=== PATIENT | female | born 1935 | race Caucasian/White ===

== ENCOUNTER 2016-06-18 10:03 | Outpatient (CLI) | payer MEDICARE, OTHER | END 2016-06-18 10:04 | disposition home or self-care (01) | DX: E78.5 Hyperlipidemia, unspecified (principal); E03.9 Hypothyroidism, unspecified; Z51.81 Encounter for therapeutic drug level monitoring; E11.65 Type 2 diabetes mellitus with hyperglycemia ==

== ENCOUNTER 2016-10-06 10:29 | Outpatient (CLI) | payer MEDICARE, OTHER | END 2016-10-06 10:30 | disposition home or self-care (01) | DX: Z12.31 Encounter for screening mammogram for malignant neoplasm of breast (principal) ==

== ENCOUNTER 2016-11-04 11:31 | Outpatient (CLI) | payer MEDICARE, OTHER ==
[2016-11-04 18:56] LABS: BASOPHILS # (AUTO) 0.1 10^3/uL (0.0-0.1); BASOPHILS % (AUTO) 0.9 %; EOSINOPHILS # (AUTO) 0.4 10^3/uL (0.0-0.7); EOSINOPHILS % (AUTO) 7.1 %; HCT - HEMATOCRIT 36.2 % (37.0-47.0); HGB - HEMOGLOBIN 12.3 g/dL (12.0-16.0); LYMPHOCYTES # (AUTO) 1.5 10^3/uL (1.5-3.5); LYMPHOCYTES % (AUTO) 23.5 %; MEAN CORPUSCULAR HEMOGLOBIN 29.1 pg (27.0-31.0); MEAN CORPUSCULAR HGB CONC 33.8 g/dL (32.0-36.0); MEAN CORPUSCULAR VOLUME 86.1 fL (81.0-99.0); MEAN PLATELET VOLUME 9.5 fL (7.9-10.8); MONOCYTES # (AUTO) 0.5 10^3/uL (0.0-1.0); MONOCYTES % (AUTO) 7.8 %; NEUTROPHILS # (AUTO) 3.8 10^3/uL (1.5-6.6); NEUTROPHILS % (AUTO) 60.7 %; RED BLOOD COUNT 4.21 10^6/uL (4.20-5.40); RED CELL DISTRIBUTION WIDTH 13.2 % (12.0-15.0); UNCORRECTED WHITE BLOOD COUNT 6.3 x10^3/uL; WHITE BLOOD COUNT 6.3 x10^3/uL (4.8-10.8)
[2016-11-04 19:26] LABS: ALBUMIN/GLOBULIN RATIO 1.2 (1.0-2.2); BILIRUBIN,TOTAL 0.8 mg/dL (0.2-1.0); BUN - BLOOD UREA NITROGEN 31 mg/dL (6-20); CALCIUM 9.9 mg/dL (8.5-10.3); CARBON DIOXIDE - CO2 26 mmol/L (21-32); CHLORIDE 103 mmol/L (101-111); CHOL/HDL RATIO 4.9 (<4.4); CHOLESTEROL 211 mg/dL; CREATININE 1.1 mg/dL (0.4-1.0); GFR - MDRD 48 (>89); GLUCOSE 164 mg/dL (70-100); HDL CHOLESTEROL 43 mg/dL; HEMOGLOBIN A1C 0.8 g/dL; IRON 61 ug/dL (28-170); LDL/HDL RATIO 2.7 (<4.4); POTASSIUM 3.8 mmol/L (3.5-5.0); SODIUM 141 mmol/L (135-145); TOTAL IRON BINDING CAPACITY 434 ug/dL (250-450); TOTAL PROTEIN 7.1 g/dL (6.7-8.2); TRANSFERRIN 310 mg/dL (192-382); TRIGLYCERIDES 263 mg/dL; VLDL CHOLESTEROL 53 mg/dL
[2016-11-04 19:33] LABS: FERRITIN 68.9 ng/mL (11.0-306.8)
[2016-11-04 19:46] LABS: THYROID STIMULATING HORMONE 2.47 uIU/mL (0.34-5.60)
== END 2016-11-04 11:32 | disposition home or self-care (01) ==
LOC: LAB.WCP 11:31
PROVIDERS: ATTEND Physician Assistant Medical
DX: E11.65 Type 2 diabetes mellitus with hyperglycemia (principal); E78.5 Hyperlipidemia, unspecified; D50.9 Iron deficiency anemia, unspecified; Z79.899 Other long term (current) drug therapy
CPT/HCPCS: 36415; 80053; 80061; 82728; 83036; 83540; 84443; 84466; 85025

== ENCOUNTER 2017-01-14 15:41 | Outpatient (CLI) | payer MEDICARE, OTHER ==
--- NOTE | 2017-01-14 17:13 | XRAY Report ---
EXAM: LEFT KNEE RADIOGRAPHY EXAM DATE: 01/14/2017 04:12 PM. CLINICAL HISTORY: OSTEOARTHRITIS, KNEE LEFT. COMPARISON: 02/09/2016. TECHNIQUE: 3 views. FINDINGS: Bones: Normal. No fractures or bone lesions. Joints: Interval mild narrowing medial compartment. No significant osteophytes. No effusion. Soft Tissues: Normal. No soft tissue swelling. IMPRESSION: 1. Interval mild narrowing medial compartment, consistent with mild degenerative joint disease-Kellgr en Brad grade 1. [facility] Referring Provider Line: [phone] SITE ID: [id number]
== END 2017-01-14 15:42 | disposition home or self-care (01) ==
LOC: DI 15:41
PROVIDERS: ATTEND Physician Assistant Medical
DX: M17.12 Unilateral primary osteoarthritis, left knee (principal)

== ENCOUNTER 2017-04-05 11:10 | Outpatient (CLI) | payer MEDICARE, OTHER ==
[2017-04-05 13:02] LABS: ALBUMIN/GLOBULIN RATIO 1.1 (1.0-2.2); BILIRUBIN,TOTAL 0.8 mg/dL (0.2-1.0); CALCIUM 9.8 mg/dL (8.5-10.3); CREATININE 1.1 mg/dL (0.4-1.0); POTASSIUM 3.6 mmol/L (3.5-5.0); TOTAL PROTEIN 7.4 g/dL (6.7-8.2)
[2017-04-05 13:12] LABS: HEMOGLOBIN A1C 0.83 g/dL
== END 2017-04-05 11:11 | disposition home or self-care (01) ==
LOC: LAB.WCP 11:10
PROVIDERS: ATTEND Physician Assistant Medical
DX: E11.65 Type 2 diabetes mellitus with hyperglycemia (principal); Z51.81 Encounter for therapeutic drug level monitoring; Z79.899 Other long term (current) drug therapy
CPT/HCPCS: 36415; 80053; 83036

== ENCOUNTER 2017-07-05 08:00 | Outpatient (CLI) | payer MEDICARE, OTHER ==
[2017-07-05 19:24] LABS: HB2 TOTAL 13.5 g/dL; HEMOGLOBIN A1C 0.87 g/dL
[2017-07-05 19:30] LABS: ALBUMIN 4.1 g/dL (3.2-5.5); ALBUMIN/GLOBULIN RATIO 1.1 (1.0-2.2); ALKALINE PHOSPHATASE 64 IU/L (42-121); ALT ALANINE AMINOTRANSFERASE 17 IU/L (10-60); AST ASPARTATE AMINOTRANSFERASE 22 IU/L (10-42); BUN - BLOOD UREA NITROGEN 42 mg/dL (6-20); CALCIUM 9.6 mg/dL (8.5-10.3); CARBON DIOXIDE - CO2 26 mmol/L (21-32); CHLORIDE 104 mmol/L (101-111); CHOL/HDL RATIO 4.5 (<4.4); CHOLESTEROL 199 mg/dL; CREATININE 1.3 mg/dL (0.4-1.0); GFR - MDRD 39 (>89); GLUCOSE 132 mg/dL (70-100); HDL CHOLESTEROL 44 mg/dL; LDL CHOLESTEROL,CALCULATED 110 mg/dL; LDL/HDL RATIO 2.5 (<4.4); SODIUM 140 mmol/L (135-145); TOTAL PROTEIN 7.7 g/dL (6.7-8.2); VLDL CHOLESTEROL 45 mg/dL
== END 2017-07-05 08:01 | disposition home or self-care (01) ==
LOC: LAB.WCP 08:00
PROVIDERS: ATTEND Physician Assistant Medical
DX: K76.0 Fatty (change of) liver, not elsewhere classified (principal); E11.9 Type 2 diabetes mellitus without complications; E03.9 Hypothyroidism, unspecified; Z51.81 Encounter for therapeutic drug level monitoring; Z79.899 Other long term (current) drug therapy
CPT/HCPCS: 36415; 80053; 80061; 83036; 83721; 84443

== ENCOUNTER 2017-07-06 08:00 | Outpatient (CLI) | payer MEDICARE, OTHER ==
[2017-07-06 19:10] LABS: CALCIUM 9.4 mg/dL (8.5-10.3); CREATININE 1.3 mg/dL (0.4-1.0)
== END 2017-07-06 08:01 | disposition home or self-care (01) ==
LOC: LAB.WCP 08:00
PROVIDERS: ATTEND Physician Assistant Medical
DX: N28.9 Disorder of kidney and ureter, unspecified (principal)
CPT/HCPCS: 36415; 80048

== ENCOUNTER 2017-09-14 18:44 | Emergency (ER) | payer MEDICARE, OTHER ==
--- NOTE | 2017-09-14 19:08 | ED Physician Documentation ---
PD HPI HEAD INJURY - Stated complaint Stated Complaint: GLF - Chief complaint Chief Complaint: Trauma Hd/Nk - History obtained from History obtained from: Patient, Family - History of Present Illness Mechanism of head injury: Other (82-year-old woman who is anticoagulated had a trip and fall on a curb and basically hit her nose and right fourth finger and also landed on her knees but she is not having any knee pain and she is walking fine. 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 : None HEENT: None Psych: None Musculoskeletal: None Derm: None - Past Surgical History General: Appendectomy /MUNICIPAL FIREFIGHTER: section, Hysterectomy - Present Medications Home Medications: Ambulatory Orders Medication Instructions Recorded Confirmed Amlodipine Besylate 5 mg PO BID 02/07/14 02/07/14 Ferrous Sulfate 32 mg PO BID 02/07/14 02/07/14 Furosemide 20 mg PO DAILY 02/07/14 02/07/14 Insulin Glargine,Hum.rec.anlog 24 units 02/07/14 02/07/14 [Lantus] Levothyroxine [Synthroid] 75 mcg PO DAILY 02/07/14 02/07/14 Lisinopril 20 mg PO DAILY 02/07/14 02/07/14 Omeprazole [PriLOSEC] 20 mg PO BID 02/07/14 02/07/14 Potassium 10 meq PO BID 02/07/14 02/07/14 Simvastatin 20 mg PO QPM 02/07/14 02/07/14 Warfarin Sodium [Coumadin] 2 mg PO DAILY 02/07/14 02/07/14 glipiZIDE [Glucotrol] 5 mg PO BID 02/07/14 02/07/14 Carvedilol 25 mg PO BID 09/14/17 Ergocalciferol [Vitamin D2] 50,000 unit PO 09/14/17 - Allergies Allergies/Adverse Reactions: Allergies Allergy/AdvReac Type Severity Reaction Status Date / Time cephalexin monohydrate * Allergy Rash Verified 09/14/17 19:27 [From Keflex] Latex, Natural Rubber Allergy Unknown Verified 09/14/17 19:27 Penicillins Allergy Itching Verified 09/14/17 19:27 Sulfa (Sulfonamide Allergy Rash Verified 09/14/17 19:27 Antibiotics) - Social History Does the pt smoke?: No Smoking Status: Never smoker Does the pt drink ETOH?: No Does the pt have substance abuse?: No - Immunizations Immunizations are current?: Yes Immunizations: TDAP >10years/unknown - POLST Patient has POLST: No PD ED PE NORMAL - Vitals Vital signs reviewed: Yes - General General: Alert and oriented X 3, No acute distress - HEENT HEENT: PERRL, EOMI, Other (Tender and swollen to the nasal bridge without deformity, no epistaxis) - Neck Neck: Supple, no meningeal sign, No bony TTP - Extremities Extremities: Other (The right fourth finger is tender and swollen especially over the mid phalanx, she is a little bruising forming over both knees anteriorly but there is no tenderness or limited range of motion.) - Neuro Neuro: Alert and oriented X 3, Normal speech - Psych Psych: Normal mood, Normal affect Results - Vitals Vitals: Vital Signs - 24 hr 09/14/17 18:53 Temperature 37.1 C Heart Rate 80 Respiratory 15 Rate Blood Pressure 172/89 H O2 Saturation 97 Oxygen O2 Source Room air - Labs Labs: Laboratory Tests 09/14/17 19:14 Whole Blood INR 2.4 H - Rads (name of study) CTH/Face and R hand XR Radiology: EMP read contemporaneously (nasal bone frx, DJD, no ICH) Departure - Departure Disposition: 01 Home, Self Care Clinical Impression: Adequate anticoagulation on anticoagulant therapy Fracture of nasal bone Qualifiers: Encounter type: initial encounter Fracture type: closed Qualified Code(s): S02.2XXA - Fracture of nasal bones, initial encounter for closed fracture Injury of head and neck Qualifiers: Encounter type: initial encounter Qualified Code(s): S09.90XA - Unspecified injury of head, initial encounter; S19.9XXA - Unspecified injury of neck, initial encounter; S19.9XXA - Unspecified injury of neck, initial encounter Finger sprain Qualifiers: Encounter type: initial encounter Finger: ring finger Sprain of finger site: interphalangeal joint Laterality: right Qualified Code(s): S63.634A - Sprain of interphalangeal joint of right ring finger, initial encounter Condition: Good Record reviewed to determine appropriate education?: Yes Instructions: ED Head Injury Closed Sleep Mon, ED Fx Nasal Conf W X Ray Comments: Tylenol as needed for pain. Your INR today is 2.4. Return if worsening or if you develop a headache. Follow-up with your doctor in 1 week.
--- NOTE | 2017-09-14 20:00 | CT Report ---
EXAM: CT HEAD EXAM DATE: 09/14/2017 07:48 PM. CLINICAL HISTORY: Fall, head nasal inj. COMPARISON: None. TECHNIQUE: Multiaxial CT images were obtained from the foramen magnum to the vertex. Reformats: Coron al. IV contrast: None. In accordance with CT protocol optimization, one or more of the following dose reduction techniques w ere utilized for this exam: automated exposure control, adjustment of mA and/or KV based on patient s ize, or use of iterative reconstructive technique. FINDINGS: Parenchyma: No intraparenchymal hemorrhage. No evidence of mass, midline shift, or CT findings of inf arction. Turpin-white differentiation is distinct. Extraaxial Spaces: Normal for age. No subdural or epidural collections identified. Ventricles: Normal in size and position. Sinuses and Orbits: Imaged paranasal sinuses, orbits, and mastoids show no significant abnormality. Bones: No evidence of fracture or calvarial defect. Other: None. IMPRESSION: Negative nonenhanced head CT. [facility] Referring Provider Line: [phone] SITE ID: [id number]
--- NOTE | 2017-09-14 20:05 | CT Preliminary Report ---
Exam: CT FACIAL BONES W/O IMPRESSION: 1. Right nasal bone fracture mildly deviated to the left. 2. No other facial fracture. 3. Sinuses appear clear. [facility] SITE ID: [id number]
--- NOTE | 2017-09-14 20:05 | CT Report ---
EXAM: CT MAXILLOFACIAL WITHOUT CONTRAST EXAM DATE: 09/14/2017 07:48 PM. CLINICAL HISTORY: Fall with facial injury. COMPARISONS: None. TECHNIQUE: Thin-section axial images were acquired of the face without contrast. Post-processing: Cor onal and sagittal reformats. Other: None. In accordance with CT protocol optimization, one or more of the following dose reduction techniques w ere utilized for this exam: automated exposure control, adjustment of mA and/or KV based on patient s ize, or use of iterative reconstructive technique. FINDINGS: Soft Tissue: There is mild soft tissue swelling of the right nose. No discrete hematoma in and stated . Orbits: Symmetric and unremarkable. Bones: There is a right nasal bone fracture of uncertain chronicity, mildly deviated to the left. No other facial bone fracture. Temporomandibular Joints: The patient is edentulous. No mandible fracture or dislocation of the tempo ral mandibular joint. Sinuses: Normal. No mucosal thickening or fluid levels. Other: None. IMPRESSION: 1. Right nasal bone fracture mildly deviated to the left. 2. No other facial fracture. 3. Sinuses appear clear. [facility] Referring Provider Line: [phone] SITE ID: [id number]
--- NOTE | 2017-09-14 20:12 | XRAY Preliminary Report ---
Exam: XR HAND 3 VIEW RT IMPRESSION: No acute fracture or subluxation. Mild degenerative disease of the fourth and fifth DIP j oints. [facility] SITE ID: [id number]
--- NOTE | 2017-09-14 20:12 | XRAY Report ---
EXAM: RIGHT HAND RADIOGRAPHY EXAM DATE: 09/14/2017 07:50 PM. CLINICAL HISTORY: Hand inj. COMPARISON: None. TECHNIQUE: 3 views. FINDINGS: Bones: No acute fracture. Joints: There is mild periarticular cystic change around the fourth and fifth DIP joint. Soft Tissues: No soft tissue foreign body. IMPRESSION: No acute fracture or subluxation. Mild degenerative disease of the fourth and fifth DIP j oints. [facility] Referring Provider Line: [phone] SITE ID: [id number]
[2017-09-14 20:33] VITALS: BP 151/68
== END 2017-09-14 20:34 | disposition home or self-care (01) ==
LOC: ED 18:44
DX: S02.2XXA Fracture of nasal bones, initial encounter for closed fracture (principal); S09.90XA Unspecified injury of head, initial encounter; S19.9XXA Unspecified injury of neck, initial encounter; S63.634A Sprain of interphalangeal joint of right ring finger, initial encounter; W18.09XA Striking against other object with subsequent fall, initial encounter; Y92.480 Sidewalk as the place of occurrence of the external cause; I10 Essential (primary) hypertension; E78.00 Pure hypercholesterolemia, unspecified; E11.9 Type 2 diabetes mellitus without complications; Z79.4 Long term (current) use of insulin
CPT/HCPCS: 70450; 70486; 85610; 99284

== ENCOUNTER 2017-09-30 15:10 | Outpatient (CLI) | payer MEDICARE, OTHER ==
[2017-09-30 19:30] LABS: ALBUMIN 4.1 g/dL (3.2-5.5); ALBUMIN/GLOBULIN RATIO 1.2 (1.0-2.2); ALKALINE PHOSPHATASE 69 IU/L (42-121); ALT ALANINE AMINOTRANSFERASE 19 IU/L (10-60); AST ASPARTATE AMINOTRANSFERASE 23 IU/L (10-42); BUN - BLOOD UREA NITROGEN 36 mg/dL (6-20); CALCIUM 9.8 mg/dL (8.5-10.3); CARBON DIOXIDE - CO2 24 mmol/L (21-32); CHLORIDE 101 mmol/L (101-111); CHOL/HDL RATIO 4.4 (<4.4); CHOLESTEROL 204 mg/dL; CREATININE 1.2 mg/dL (0.4-1.0); GFR - MDRD 43 (>89); GLUCOSE 148 mg/dL (70-100); HDL CHOLESTEROL 46 mg/dL; LDL CHOLESTEROL,CALCULATED 111 mg/dL; LDL/HDL RATIO 2.4 (<4.4); SODIUM 137 mmol/L (135-145); TOTAL PROTEIN 7.5 g/dL (6.7-8.2); VLDL CHOLESTEROL 47 mg/dL
[2017-09-30 19:40] LABS: HB2 TOTAL 13.4 g/dL; HEMOGLOBIN A1C 0.84 g/dL; HEMOGLOBIN A1C % 7.9 % (4.6-6.2)
== END 2017-09-30 15:11 | disposition home or self-care (01) ==
LOC: LAB.WCP 15:10
PROVIDERS: ATTEND Family Medicine
DX: E78.5 Hyperlipidemia, unspecified (principal); E11.65 Type 2 diabetes mellitus with hyperglycemia; E03.9 Hypothyroidism, unspecified; Z51.81 Encounter for therapeutic drug level monitoring; Z79.899 Other long term (current) drug therapy
CPT/HCPCS: 36415; 80053; 80061; 83036; 83721; 84443

== ENCOUNTER 2017-12-07 13:13 | Outpatient (CLI) | payer MEDICARE, OTHER | END 2017-12-07 13:14 | disposition home or self-care (01) | LOC: SC 13:13 | PROVIDERS: ATTEND Nurse Practitioner Family | DX: G47.10 Hypersomnia, unspecified (principal); G47.8 Other sleep disorders; R06.83 Snoring | CPT/HCPCS: 99215; G0463; 99212 ==

== ENCOUNTER 2018-01-05 20:40 | Outpatient (CLI) | payer MEDICARE, OTHER | END 2018-01-05 20:41 | disposition home or self-care (01) | LOC: SC 20:40 | PROVIDERS: ATTEND Internal Medicine Pulmonary Disease | DX: G47.33 Obstructive sleep apnea (adult) (pediatric) (principal); G47.61 Periodic limb movement disorder | CPT/HCPCS: 95810 ==

== ENCOUNTER → 2018-01-09 | Outpatient (CLI) | payer MEDICARE, OTHER ==
[2018-01-09 19:31] LABS: CALCIUM 9.6 mg/dL (8.5-10.3); CREATININE 1.1 mg/dL (0.4-1.0)
[2018-01-09 19:47] LABS: HB2 TOTAL 12.7 g/dL; HEMOGLOBIN A1C 0.95 g/dL
== END ==
LOC: LAB.WCP 08:00
PROVIDERS: ATTEND Family Medicine
DX: G47.33 Obstructive sleep apnea (adult) (pediatric) (principal); E11.65 Type 2 diabetes mellitus with hyperglycemia; I48.0 Paroxysmal atrial fibrillation; I10 Essential (primary) hypertension; E78.5 Hyperlipidemia, unspecified
CPT/HCPCS: 36415; 80048; 83036

== ENCOUNTER 2018-02-13 14:09 | Outpatient (CLI) | payer MEDICARE, OTHER | END 2018-02-13 14:10 | disposition home or self-care (01) | LOC: SC 14:09 | PROVIDERS: ATTEND Nurse Practitioner Family | DX: G47.33 Obstructive sleep apnea (adult) (pediatric) (principal); G47.61 Periodic limb movement disorder | CPT/HCPCS: 99214; G0463; 99212 ==

== ENCOUNTER 2018-03-18 21:00 | Outpatient (CLI) | payer MEDICARE, OTHER | END 2018-03-18 21:01 | disposition home or self-care (01) | LOC: SC 21:00 | PROVIDERS: ATTEND Internal Medicine Pulmonary Disease | DX: G47.33 Obstructive sleep apnea (adult) (pediatric) (principal); G47.61 Periodic limb movement disorder | CPT/HCPCS: 95811 ==

== ENCOUNTER 2018-05-03 12:51 | Outpatient (CLI) | payer MEDICARE, OTHER | END 2018-05-03 12:52 | disposition home or self-care (01) | LOC: SC 12:51 | PROVIDERS: ATTEND Nurse Practitioner Family | DX: G47.33 Obstructive sleep apnea (adult) (pediatric) (principal); G47.61 Periodic limb movement disorder | CPT/HCPCS: 99214; G0463; 99212 ==

== ENCOUNTER 2018-05-09 08:00 | Outpatient (CLI) | payer MEDICARE, OTHER ==
[2018-05-09 19:30] LABS: ALBUMIN 3.8 g/dL (3.2-5.5); ALBUMIN/GLOBULIN RATIO 1.1 (1.0-2.2); ALKALINE PHOSPHATASE 65 IU/L (42-121); ALT ALANINE AMINOTRANSFERASE 15 IU/L (10-60); AST ASPARTATE AMINOTRANSFERASE 22 IU/L (10-42); BILIRUBIN,TOTAL 0.9 mg/dL (0.2-1.0); BUN - BLOOD UREA NITROGEN 28 mg/dL (6-20); CALCIUM 9.2 mg/dL (8.5-10.3); CARBON DIOXIDE - CO2 25 mmol/L (21-32); CHLORIDE 102 mmol/L (101-111); CHOL/HDL RATIO 4.5 (<4.4); CHOLESTEROL 203 mg/dL; GFR - MDRD 53 (>89); GLUCOSE 176 mg/dL (70-100); HDL CHOLESTEROL 45 mg/dL; LDL CHOLESTEROL,CALCULATED 109 mg/dL; LDL/HDL RATIO 2.4 (<4.4); SODIUM 140 mmol/L (135-145); TOTAL PROTEIN 7.2 g/dL (6.7-8.2); VLDL CHOLESTEROL 49 mg/dL
[2018-05-09 19:45] LABS: HB2 TOTAL 12.5 g/dL; HEMOGLOBIN A1C 0.89 g/dL; HEMOGLOBIN A1C % 8.7 % (4.6-6.2)
== END 2018-05-09 23:59 | disposition home or self-care (01) ==
LOC: LAB.WCP 08:00
PROVIDERS: ATTEND Family Medicine
DX: N28.9 Disorder of kidney and ureter, unspecified (principal); E03.9 Hypothyroidism, unspecified; E11.65 Type 2 diabetes mellitus with hyperglycemia; K76.0 Fatty (change of) liver, not elsewhere classified; I10 Essential (primary) hypertension; E78.5 Hyperlipidemia, unspecified
CPT/HCPCS: 36415; 80053; 80061; 83036; 83721; 84443

== ENCOUNTER 2018-05-20 14:47 | Outpatient (CLI) | payer MEDICARE, OTHER ==
--- NOTE | 2018-05-22 12:00 | XRAY Report ---
Reason: Neck Pain Procedure Date: 05/20/2018 Accession Number: [id number] / [id number] Procedure: XR - Cervical Spine 2 View CPT Code: FULL RESULT: EXAM: CERVICAL SPINE RADIOGRAPHY EXAM DATE: 05/20/2018 03:06 PM. CLINICAL HISTORY: Neck Pain. COMPARISONS: None. TECHNIQUE: 3 views. FINDINGS: Alignment: No spondylolisthesis or scoliosis. Bones: The cervical vertebral bodies and posterior elements are well visualized from the skull base through C7-T1. Disks: There is mild disk space narrowing at C5-C6 and C6-C7. There are small to moderate anterior osteophytes. Facets: Mild to moderate degenerative disease. Soft Tissues: No prevertebral soft tissue swelling. The visualized lung apices are clear. IMPRESSION: Mild to moderate cervical spondylosis [facility]
== END 2018-05-20 14:48 | disposition home or self-care (01) ==
LOC: DI 14:47
PROVIDERS: ATTEND Family Medicine
DX: M47.812 Spondylosis without myelopathy or radiculopathy, cervical region (principal); M25.78 Osteophyte, vertebrae
CPT/HCPCS: 72040

== ENCOUNTER 2018-07-17 10:40 | Outpatient (CLI) | payer MEDICARE, OTHER | END 2018-07-17 10:41 | disposition home or self-care (01) | LOC: SC 10:40 | PROVIDERS: ATTEND Nurse Practitioner Family | DX: G47.33 Obstructive sleep apnea (adult) (pediatric) (principal) | CPT/HCPCS: 99214; G0463; 99212 ==

== ENCOUNTER 2018-08-02 08:00 | Outpatient (CLI) | payer MEDICARE, OTHER | END 2018-08-02 23:59 | disposition home or self-care (01) | LOC: LAB.WCP 08:00 | PROVIDERS: ATTEND Family Medicine | DX: I48.0 Paroxysmal atrial fibrillation (principal); Z79.01 Long term (current) use of anticoagulants ==

== ENCOUNTER 2018-08-07 14:27 | Outpatient (CLI) | payer MEDICARE, OTHER ==
[2018-08-07 19:42] LABS: BUN - BLOOD UREA NITROGEN 41 mg/dL (6-20); CALCIUM 9.7 mg/dL (8.5-10.3); CARBON DIOXIDE - CO2 24 mmol/L (21-32); CHLORIDE 100 mmol/L (101-111); CHOL/HDL RATIO 4.3 (<4.4); CHOLESTEROL 188 mg/dL; CREATININE 1.4 mg/dL (0.4-1.0); GFR - MDRD 36 (>89); GLUCOSE 135 mg/dL (70-100); HDL CHOLESTEROL 44 mg/dL; LDL CHOLESTEROL,CALCULATED 99 mg/dL; LDL/HDL RATIO 2.3 (<4.4); SODIUM 136 mmol/L (135-145); VLDL CHOLESTEROL 45 mg/dL
[2018-08-07 19:51] LABS: HB2 TOTAL 12.5 g/dL; HEMOGLOBIN A1C 0.98 g/dL; HEMOGLOBIN A1C % 9.3 % (4.6-6.2)
== END 2018-08-07 14:28 | disposition home or self-care (01) ==
LOC: LAB.WCP 14:27
PROVIDERS: ATTEND Family Medicine
DX: E11.65 Type 2 diabetes mellitus with hyperglycemia (principal); E78.5 Hyperlipidemia, unspecified
CPT/HCPCS: 36415; 80048; 80061; 82043; 83036; 83721

== ENCOUNTER 2018-08-10 10:32 | Outpatient (CLI) | payer MEDICARE, OTHER | END 2018-08-10 10:33 | disposition home or self-care (01) | LOC: SC 10:32 | PROVIDERS: ATTEND Nurse Practitioner Family | DX: G47.33 Obstructive sleep apnea (adult) (pediatric) (principal) | CPT/HCPCS: 99213; G0463; 99212 ==

== ENCOUNTER 2018-09-04 08:00 | Outpatient (CLI) | payer MEDICARE, OTHER | END 2018-09-04 23:59 | disposition home or self-care (01) | LOC: LAB.WCP 08:00 | PROVIDERS: ATTEND Family Medicine | DX: I48.0 Paroxysmal atrial fibrillation (principal); Z79.01 Long term (current) use of anticoagulants ==

== ENCOUNTER 2018-09-21 08:00 | Outpatient (CLI) | payer MEDICARE, OTHER | END 2018-09-21 23:59 | disposition home or self-care (01) | LOC: LAB.R 08:00 | PROVIDERS: ATTEND Physician Assistant | DX: N39.0 Urinary tract infection, site not specified (principal) | CPT/HCPCS: 87077; 87086; 87181 ==

== ENCOUNTER 2018-09-21 08:00 | Outpatient (CLI) | payer MEDICARE, OTHER | END 2018-09-21 08:01 | disposition home or self-care (01) | LOC: LAB.WCP 08:00 | PROVIDERS: ATTEND Physician Assistant | DX: I48.0 Paroxysmal atrial fibrillation (principal); Z79.01 Long term (current) use of anticoagulants; N39.0 Urinary tract infection, site not specified | CPT/HCPCS: 87077; 87086; 87181 ==

== ENCOUNTER 2018-10-12 08:00 | Outpatient (CLI) | payer MEDICARE, OTHER | END 2018-10-12 23:59 | disposition home or self-care (01) | LOC: LAB.WCP 08:00 | PROVIDERS: ATTEND Family Medicine | DX: I48.0 Paroxysmal atrial fibrillation (principal); Z79.01 Long term (current) use of anticoagulants ==

== ENCOUNTER 2018-10-15 21:21 | Emergency (ER) | payer MEDICARE, OTHER ==
[2018-10-15] MEDS ORDERED: MAG HYDROX/AL HYDROX/SIMETH 30 ML UDC PO STA (21:40)
--- NOTE | 2018-10-15 21:44 | ED Physician Documentation ---
History of Present Illness - Stated complaint Stated Complaint: INDIGESTION - Chief complaint Chief Complaint: Abd Pain - History obtained from History obtained from: Patient - Additonal information Additional information: Patient is an 83-year-old female presenting with several days of GERD-like symptoms after taking clindamycin. Patient reports that she was prescribed clindamycin for an ear infection by her primary care physician and has contacted this physician regarding the side effects of the clindamycin. Patient was instructed to eat more food when taking clindamycin. Patient states that she does take medication with food but still has acid reflux-like symptoms and had an episode of vomiting earlier tonight when she took the antibiotic. Patient does take omeprazole regularly for underlying GERD as well. Patient denies other symptoms such as fever, urinary changes, stool changes, or other abdominal pain.No other improving or worsening factors noted. Review of Systems GI: reports: Nausea, Vomiting. 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: section, Hysterectomy - Present Medications Home Medications: Ambulatory Orders Medication Instructions Recorded Confirmed Furosemide 20 mg PO DAILY 02/07/14 10/15/18 Insulin Glargine,Hum.rec.anlog 24 units 02/07/14 02/07/14 [Lantus] Levothyroxine [Synthroid] 75 mcg PO DAILY 02/07/14 10/15/18 Lisinopril 20 mg PO DAILY 02/07/14 10/15/18 Omeprazole [PriLOSEC] 20 mg PO BID 02/07/14 10/15/18 Simvastatin 20 mg PO QPM 02/07/14 10/15/18 Warfarin Sodium [Coumadin] 2 mg PO DAILY 02/07/14 10/15/18 glipiZIDE [Glucotrol] 5 mg PO BID 02/07/14 10/15/18 Carvedilol 25 mg PO BID 09/14/17 10/15/18 - Allergies Allergies/Adverse Reactions: Allergies Allergy/AdvReac Type Severity Reaction Status Date / Time cephalexin monohydrate * Allergy Rash Verified 10/15/18 21:31 [From Keflex] Latex, Natural Rubber Allergy Unknown Verified 10/15/18 21:31 Penicillins Allergy Itching Verified 10/15/18 21:31 Sulfa (Sulfonamide Allergy Rash Verified 10/15/18 21:31 Antibiotics) - Social History Does the pt smoke?: No Smoking Status: Never smoker Does the pt drink ETOH?: No Does the pt have substance abuse?: No - Immunizations Immunizations are current?: Yes Immunizations: TDAP >10years/unknown - POLST Patient has POLST: No PD ED PE NORMAL - Vitals Vital signs reviewed: Yes (HTN, but chronic) - General General: Alert and oriented X 3, No acute distress, Well developed/nourished - HEENT HEENT: Atraumatic - Cardiac Cardiac: RRR. No: No murmur (Holosystolic murmur throughout) - Respiratory Respiratory: No respiratory distress, Clear bilaterally - Abdomen Abdomen: Normal bowel sounds, Soft, Non tender, Non distended - Derm Derm: Normal color, Warm and dry, No rash - Extremities Extremities: No: No edema (Chronic 1+ pitting pedal edema bilaterally) - Neuro Neuro: No motor deficit, No sensory deficit - Psych Psych: Normal mood, Normal affect Results - Vitals Vitals: Vital Signs - 24 hr 10/15/18 21:27 Temperature 37.1 C Heart Rate 89 Respiratory 20 Rate Blood Pressure 161/112 H O2 Saturation 93 Oxygen O2 Source Room air PD MEDICAL DECISION MAKING - ED course Complexity details: re-evaluated patient, considered differential, d/w patient, d/w family ED course: Patient presenting with concern for persistent GERD symptoms when taking clindamycin. Patient states that she does take medication with food which does not help. Patient is unwilling to take clindamycin any further given the side effects and as her ear infection symptoms have stopped. Discussed continued use of clindamycin risks versus benefits and if patient does continue antibiotic, other supportive cares to help relieve acid pain. Patient does take omeprazole regularly and discussed use of other antacid medications as well. Patient provided GI cocktail and Pepcid in the ED with some relief. At this time have low suspicion for other emergent pathology such as cardiac etiologies, pulmonary etiologies, or other intra-abdominal issues. Feel the patient is safe to discharge home and can follow-up with her primary care physician as an outpatient. Patient voiced understanding and is comfortable with discharge plan. Departure - Departure Disposition: 01 Home, Self Care Clinical Impression: Gastroesophageal reflux disease Qualifiers: Esophagitis presence: esophagitis presence not specified Qualified Code(s): K21.9 - Gastro-esophageal reflux disease without esophagitis Condition: Good Instructions: ED GERD Follow-Up: Tuan Moreno MD [Primary Care Provider] - Within 3 Days Comments: Please continue home medications as previously instructed. May also add other o lwp-vjw-tirfoes antacid options such as Pepcid, ranitidine, or Tums. If continuing to take clindamycin, recommend taking with heavy meal. Please follow-up with your primary care physician in the next 2 to 3 days and return to ED sooner if experience worsening symptoms or other concerns.
[2018-10-15] MEDS ORDERED: FAMOTIDINE 20 MG TABLET PO STA (22:14)
[2018-10-15 22:30] VITALS: BP 174/54
== END 2018-10-15 22:31 | disposition home or self-care (01) ==
LOC: ED 21:21
DX: T36.8X5A Adverse effect of other systemic antibiotics, initial encounter (principal); K21.9 Gastro-esophageal reflux disease without esophagitis; R11.2 Nausea with vomiting, unspecified; I10 Essential (primary) hypertension; I48.91 Unspecified atrial fibrillation; Z79.01 Long term (current) use of anticoagulants; E11.9 Type 2 diabetes mellitus without complications; Z79.4 Long term (current) use of insulin
CPT/HCPCS: 99282; 99283; A9270

== ENCOUNTER 2018-10-20 08:00 | Outpatient (CLI) | payer MEDICARE, OTHER ==
[2018-10-20 18:41] LABS: HGB - HEMOGLOBIN 10.9 g/dL (12.0-16.0); MEAN CORPUSCULAR HEMOGLOBIN 28.3 pg (27.0-31.0); MEAN CORPUSCULAR HGB CONC 33.6 g/dL (32.0-36.0); MEAN CORPUSCULAR VOLUME 84.5 fL (81.0-99.0); MEAN PLATELET VOLUME 9.4 fL (7.9-10.8); RED BLOOD COUNT 3.86 10^6/uL (4.20-5.40); RED CELL DISTRIBUTION WIDTH 13.5 % (12.0-15.0); WHITE BLOOD COUNT 7.9 x10^3/uL (4.8-10.8)
[2018-10-20 19:05] LABS: RHEUMATOID FACTOR NEGATIVE (Negative)
[2018-10-20 19:06] LABS: CRP - C-REACTIVE PROTEIN 2.5 mg/dL (0-1.0)
[2018-10-20 19:07] LABS: URIC ACID 10.7 mg/dL (2.6-7.2)
== END 2018-10-20 23:59 | disposition home or self-care (01) ==
LOC: LAB.WCP 08:00
PROVIDERS: ATTEND Family Medicine
DX: M79.671 Pain in right foot (principal)
CPT/HCPCS: 36415; 84550; 85027; 85651; 86140; 86200; 86430

== ENCOUNTER 2018-10-20 11:25 | Outpatient (CLI) | payer MEDICARE, OTHER ==
--- NOTE | 2018-10-20 15:15 | XRAY Report ---
Reason: HEEL PAIN,RIGHT Procedure Date: 10/20/2018 Accession Number: [id number] / [id number] Procedure: WCP - Foot 2 View RT CPT Code: FULL RESULT: EXAM: RIGHT FOOT RADIOGRAPHY EXAM DATE: 10/20/2018 11:38 AM. CLINICAL HISTORY: HEEL PAIN,RIGHT. COMPARISON: None. TECHNIQUE: 2 views. FINDINGS: Bones: Achilles tendon and plantar heel spur. No fractures or bone lesions. Joints: Dorsal spurring talonavicular joint, dorsal metatarsal joint No subluxations. Soft Tissues: Distal peripheral vascular calcifications. Dorsal soft tissue swelling. IMPRESSION: Achilles tendon and plantar heel spurs are [facility]
== END 2018-10-20 11:26 | disposition home or self-care (01) ==
LOC: DI.WCP 11:25
PROVIDERS: ATTEND Family Medicine
DX: M79.671 Pain in right foot (principal); M77.31 Calcaneal spur, right foot
CPT/HCPCS: 36415; 84550; 85027; 85651; 86140; 86200; 86430

== ENCOUNTER 2018-10-23 11:54 | Outpatient (CLI) | payer MEDICARE, OTHER ==
--- NOTE | 2018-10-23 12:39 | XRAY Report ---
Reason: COUGH Procedure Date: 10/23/2018 Accession Number: [id number] / [id number] Procedure: XR - Chest 2 View X-Ray CPT Code: 79820 FULL RESULT: EXAM: CHEST RADIOGRAPHY EXAM DATE: 10/23/2018 12:25 PM. CLINICAL HISTORY: COUGH. COMPARISON: None. TECHNIQUE: 2 views. FINDINGS: Lungs/Pleura: Elongated lingular opacity. Faint left costophrenic angle opacity. Mediastinum: Atherosclerotic aortic calcification. Other: None. IMPRESSION: Lingular atelectasis and potential airspace disease. [facility]
== END 2018-10-23 11:55 | disposition home or self-care (01) ==
LOC: DI 11:54
PROVIDERS: ATTEND Family Medicine
DX: J98.11 Atelectasis (principal); R05 Cough; R03.0 Elevated blood-pressure reading, without diagnosis of hypertension
CPT/HCPCS: 36415; 71046; 80053; 81003; 85025

== ENCOUNTER 2018-10-23 12:53 | Outpatient (CLI) | payer MEDICARE, OTHER ==
[2018-10-23 13:14] LABS: BASOPHILS # (AUTO) 0.1 10^3/uL (0.0-0.1); BASOPHILS % (AUTO) 0.9 %; EOSINOPHILS # (AUTO) 0.2 10^3/uL (0.0-0.7); EOSINOPHILS % (AUTO) 3.7 %; HGB - HEMOGLOBIN 11.4 g/dL (12.0-16.0); LYMPHOCYTES # (AUTO) 0.8 10^3/uL (1.5-3.5); LYMPHOCYTES % (AUTO) 13.4 %; MEAN CORPUSCULAR HEMOGLOBIN 27.6 pg (27.0-31.0); MEAN CORPUSCULAR HGB CONC 32.8 g/dL (32.0-36.0); MEAN CORPUSCULAR VOLUME 84.2 fL (81.0-99.0); MEAN PLATELET VOLUME 8.6 fL (7.9-10.8); MONOCYTES # (AUTO) 0.7 10^3/uL (0.0-1.0); MONOCYTES % (AUTO) 11.7 %; NEUTROPHILS # (AUTO) 4.2 10^3/uL (1.5-6.6); NEUTROPHILS % (AUTO) 70.3 %; PLT - PLATELET COUNT 277 10^3/uL (130-450); RED BLOOD COUNT 4.14 10^6/uL (4.20-5.40); RED CELL DISTRIBUTION WIDTH 13.3 % (12.0-15.0); WHITE BLOOD COUNT 5.9 x10^3/uL (4.8-10.8)
[2018-10-23 13:26] LABS: ALBUMIN 3.8 g/dL (3.2-5.5); BILIRUBIN,TOTAL 0.6 mg/dL (0.2-1.0); CALCIUM 9.8 mg/dL (8.5-10.3); CREATININE 1.1 mg/dL (0.4-1.0); TOTAL PROTEIN 7.5 g/dL (6.7-8.2)
[2018-10-23 13:40] LABS: BILIRUBIN,URINE NEGATIVE (NEGATIVE); GLUCOSE, URINE (UA) NEGATIVE (NEGATIVE); KETONES,URINE (UA) NEGATIVE (NEGATIVE); LEUKOCYTE ESTERASE, URINE NEGATIVE (NEGATIVE); NITRITE,URINE NEGATIVE (NEGATIVE); OCCULT BLOOD,URINE NEGATIVE (NEGATIVE); PROTEIN,URINE NEGATIVE (NEGATIVE); UROBILINOGEN,URINE 0.2 (NORMAL) E.U./dL (NORMAL)
[2018-10-23 13:45] LABS: CLARITY,URINE CLEAR (CLEAR)
== END 2018-10-23 12:54 | disposition home or self-care (01) ==
LOC: LAB 12:53
PROVIDERS: ATTEND Family Medicine
DX: R05 Cough (principal); R30.0 Dysuria
CPT/HCPCS: 36415; 80053; 81001; 81003; 85025; 87086

== ENCOUNTER 2018-10-27 14:52 | Emergency (ER) | payer MEDICARE, OTHER ==
[2018-10-27 16:43] LABS: BASOPHILS % (AUTO) 0.3 %; EOSINOPHILS % (AUTO) 0.1 %; HGB - HEMOGLOBIN 11.6 g/dL (12.0-16.0); LYMPHOCYTES # (AUTO) 0.7 10^3/uL (1.5-3.5); MEAN CORPUSCULAR HEMOGLOBIN 27.4 pg (27.0-31.0); MEAN PLATELET VOLUME 8.8 fL (7.9-10.8); MONOCYTES # (AUTO) 0.2 10^3/uL (0.0-1.0); MONOCYTES % (AUTO) 4.4 %; NEUTROPHILS # (AUTO) 4.5 10^3/uL (1.5-6.6); NEUTROPHILS % (AUTO) 83.2 %; PLT - PLATELET COUNT 243 10^3/uL (130-450); RED BLOOD COUNT 4.24 10^6/uL (4.20-5.40); RED CELL DISTRIBUTION WIDTH 13.3 % (12.0-15.0); WHITE BLOOD COUNT 5.4 x10^3/uL (4.8-10.8)
[2018-10-27 16:56] LABS: ALBUMIN 3.6 g/dL (3.2-5.5); ALBUMIN/GLOBULIN RATIO 0.9 (1.0-2.2); BILIRUBIN,TOTAL 0.9 mg/dL (0.2-1.0); CALCIUM 9.9 mg/dL (8.5-10.3); CREATININE 1.3 mg/dL (0.4-1.0); TOTAL PROTEIN 7.4 g/dL (6.7-8.2)
[2018-10-27] MEDS ORDERED: SODIUM CHLORIDE 0.9% 1,000 ML IV ONE (17:13)
[2018-10-27] MEDS ORDERED: guaiFENesin 600 MG TABLET PO STA (17:13)
[2018-10-27 17:15] LABS: INR 3.2 (0.8-1.2); PT - PROTHROMBIN TIME 35.9 secs (9.9-12.6)
--- NOTE | 2018-10-27 17:16 | ED Physician Documentation ---
History of Present Illness - Stated complaint Stated Complaint: PNUEMONIA - Chief complaint Chief Complaint: Resp - History obtained from History obtained from: Patient - History of Present Illness Timing: Other (83-year-old woman with atrial fibrillation on warfarin was diagnosed with pneumonia about 5 days ago and has been on Levaquin for 4 days. She feels persistently dry with dry mucous membranes and crustiness around her nose and decreased energy. She denies significant shortness of breath except for that due to nasal congestion. 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 : None HEENT: None Psych: None Musculoskeletal: None Derm: None - Past Surgical History Past Surgical History: Yes General: Appendectomy /CHICKEN 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: section, Hysterectomy - Present Medications Home Medications: Ambulatory Orders Medication Instructions Recorded Confirmed Furosemide 20 mg PO DAILY 02/07/14 10/15/18 Insulin Glargine,Hum.rec.anlog 24 units 02/07/14 02/07/14 [Lantus] Levothyroxine [Synthroid] 75 mcg PO DAILY 02/07/14 10/15/18 Lisinopril 20 mg PO DAILY 02/07/14 10/15/18 Omeprazole [PriLOSEC] 20 mg PO BID 02/07/14 10/15/18 Simvastatin 20 mg PO QPM 02/07/14 10/15/18 Warfarin Sodium [Coumadin] 2 mg PO DAILY 02/07/14 10/15/18 glipiZIDE [Glucotrol] 5 mg PO BID 02/07/14 10/15/18 Carvedilol 25 mg PO BID 09/14/17 10/15/18 Guaifenesin/Dextromethorphan 1 each PO BID PRN #20 tab.er.12h 10/27/18 [Mucinex Dm ER 600-30 mg Tablet] - Allergies Allergies/Adverse Reactions: Allergies Allergy/AdvReac Type Severity Reaction Status Date / Time cephalexin monohydrate * Allergy Rash Verified 10/27/18 15:05 [From Keflex] Latex, Natural Rubber Allergy Unknown Verified 10/27/18 15:05 metformin [From Glucophage] Allergy Unknown Verified 10/27/18 15:05 Penicillins Allergy Itching Verified 10/27/18 15:05 Sulfa (Sulfonamide Allergy Rash Verified 10/27/18 15:05 Antibiotics) - Social History Does the pt smoke?: No Smoking Status: Never smoker Does the pt drink ETOH?: No Does the pt have substance abuse?: No - Immunizations Immunizations are current?: Yes Immunizations: TDAP >10years/unknown - POLST Patient has POLST: No PD ED PE NORMAL - Vitals Vital signs reviewed: Yes - General General: Alert and oriented X 3, No acute distress - HEENT HEENT: PERRL, Ears normal, Moist mucous membranes, Pharynx benign - Neck Neck: Supple, no meningeal sign, No bony TTP - Cardiac Cardiac: No murmur, Other (Irregularly irregular without murmur) - Respiratory Respiratory: No respiratory distress, Clear bilaterally - Abdomen Abdomen: Non tender - Neuro Neuro: Alert and oriented X 3, Normal speech Results - Vitals Vitals: Vital Signs - 24 hr 10/27/18 15:01 Temperature 36.9 C Heart Rate 83 Respiratory 18 Rate Blood Pressure 136/59 H O2 Saturation 96 Oxygen O2 Source Room air - Labs Labs: Laboratory Tests 10/27/18 10/27/18 10/27/18 16:20 16:32 16:32 WBC 5.4 RBC 4.24 Hgb 11.6 L Hct 35.2 L MCV 83.0 MCH 27.4 MCHC 33.0 RDW 13.3 Plt Count 243 MPV 8.8 Neut # (Auto) 4.5 Lymph # (Auto) 0.7 L Perkins # (Auto) 0.2 Eos # (Auto) 0.0 Baso # (Auto) 0.0 Absolute Nucleated RBC 0.00 Nucleated RBC % 0.1 PT 35.9 H INR 3.2 H Sodium 137 Potassium 3.6 Chloride 101 Carbon Dioxide 23 Anion Gap 13.0 BUN 25 H Creatinine 1.3 H Estimated GFR (MDRD) 39 L Glucose 226 H Lactic Acid Calcium 9.9 Total Bilirubin 0.9 AST 20 ALT 14 Alkaline Phosphatase 69 Total Protein 7.4 Albumin 3.6 Globulin 3.8 Albumin/Globulin Ratio 0.9 L Lipase 29 10/27/18 16:32 WBC RBC Hgb Hct MCV MCH MCHC RDW Plt Count MPV Neut # (Auto) Lymph # (Auto) Perkins # (Auto) Eos # (Auto) Baso # (Auto) Absolute Nucleated RBC Nucleated RBC % PT INR Sodium Potassium Chloride Carbon Dioxide Anion Gap BUN Creatinine Estimated GFR (MDRD) Glucose Lactic Acid 1.0 Calcium Total Bilirubin AST ALT Alkaline Phosphatase Total Protein Albumin Globulin Albumin/Globulin Ratio Lipase - Rads (name of study) CXR Radiology: EMP read contemporaneously (Hyperinflated but lungs are now clear.) PD MEDICAL DECISION MAKING - ED course ED course: 83-year-old woman with recent diagnosis of pneumonia presents with some nasal congestion and feeling dry. She is administered IV fluids. Her labs are reassuring and her chest x-ray is now clear. Departure - Departure Disposition: 01 Home, Self Care Clinical Impression: Dehydration, Supratherapeutic INR Pneumonia Qualifiers: Pneumonia type: due to unspecified organism Laterality: left Lung location: lower lobe of lung Qualified Code(s): J18.1 - Lobar pneumonia, unspecified organism Condition: Good Record reviewed to determine appropriate education?: Yes Instructions: Pneumonia Dc Prescriptions: Guaifenesin/Dextromethorphan [Mucinex Dm ER 600-30 mg Tablet] 1 each PO BID PRN #20 tab.er.12h PRN Reason: congestion Comments: Your INR today was 3.2. Do not take any warfarin tonight. Return if worse. Follow-up with your doctor in a week. Drink plenty fluids.
--- NOTE | 2018-10-27 17:29 | XRAY Report ---
Reason: f/u pna Procedure Date: 10/27/2018 Accession Number: [id number] / [id number] Procedure: XR - Chest 2 View X-Ray CPT Code: 88344 FULL RESULT: EXAM: CHEST RADIOGRAPHY EXAM DATE: 10/27/2018 05:19 PM. CLINICAL HISTORY: Follow-up pneumonia. History of pneumonia. Shortness of air, productive cough for 1 week. COMPARISON: CHEST 2 VIEW 10/23/2018 12:15 PM. TECHNIQUE: 2 views. FINDINGS: Lungs/Pleura: Hyperinflated lungs with flattened diaphragm. No consolidation, airspace disease, pleural effusion or pneumothorax. Mediastinum: Heart and mediastinal contours are unremarkable. IMPRESSION: No acute cardiopulmonary disease seen. Hyperinflated lungs. [facility]
[2018-10-27 17:59] VITALS: BP 168/74
== END 2018-10-27 19:19 | disposition home or self-care (01) ==
LOC: ED 14:52
DX: E86.0 Dehydration (principal); R79.1 Abnormal coagulation profile; J18.1 Lobar pneumonia, unspecified organism; R09.81 Nasal congestion; I48.91 Unspecified atrial fibrillation; Z79.01 Long term (current) use of anticoagulants; I10 Essential (primary) hypertension; E11.9 Type 2 diabetes mellitus without complications; Z79.4 Long term (current) use of insulin
CPT/HCPCS: 36415; 71046; 80053; 83605; 83690; 85025; 85610; 99283; A9270

== ENCOUNTER 2018-10-29 15:46 | Emergency (ER) | payer MEDICARE, OTHER ==
[2018-10-29 19:14] LABS: BASOPHILS # (AUTO) 0.1 10^3/uL (0.0-0.1); BASOPHILS % (AUTO) 0.6 %; EOSINOPHILS % (AUTO) 0.1 %; HGB - HEMOGLOBIN 11.6 g/dL (12.0-16.0); LYMPHOCYTES # (AUTO) 1.5 10^3/uL (1.5-3.5); LYMPHOCYTES % (AUTO) 17.9 %; MEAN CORPUSCULAR HEMOGLOBIN 27.4 pg (27.0-31.0); MEAN CORPUSCULAR HGB CONC 32.9 g/dL (32.0-36.0); MEAN CORPUSCULAR VOLUME 83.4 fL (81.0-99.0); MEAN PLATELET VOLUME 8.8 fL (7.9-10.8); MONOCYTES # (AUTO) 0.8 10^3/uL (0.0-1.0); MONOCYTES % (AUTO) 8.9 %; NEUTROPHILS # (AUTO) 6.3 10^3/uL (1.5-6.6); NEUTROPHILS % (AUTO) 72.5 %; PLT - PLATELET COUNT 251 10^3/uL (130-450); RED BLOOD COUNT 4.23 10^6/uL (4.20-5.40); RED CELL DISTRIBUTION WIDTH 13.5 % (12.0-15.0); WHITE BLOOD COUNT 8.6 x10^3/uL (4.8-10.8)
[2018-10-29 19:22] LABS: PT - PROTHROMBIN TIME 33.4 secs (9.9-12.6)
[2018-10-29 19:24] LABS: ALBUMIN 3.7 g/dL (3.2-5.5); ALBUMIN/GLOBULIN RATIO 1.2 (1.0-2.2); BILIRUBIN,TOTAL 0.6 mg/dL (0.2-1.0); CALCIUM 9.8 mg/dL (8.5-10.3); CREATININE 1.2 mg/dL (0.4-1.0); TOTAL PROTEIN 6.9 g/dL (6.7-8.2)
--- NOTE | 2018-10-29 19:50 | ED Physician Documentation ---
PD HPI URI - Stated complaint Stated Complaint: FEELS DEHYDRATED/COUGH - Chief complaint Chief Complaint: General - History obtained from History obtained from: Patient - History of Present Illness Timing - onset: How many days ago (had had some cough and Dx with pneumonia on CXR. on abx for it (Levaquin) and has Medrol dose pack. Seen yesterday for feeling dry and given IV fluids, with feeling better. Given guiaf/DM for cough. She says she is feeling more dry mouthed today. Concerned about dehydration. She says she is taking fluids well and urinating often. Not feeling lightheaded.) Timing duration: Days Timing details: Gradual onset, Still present, Waxing and waning Associated symptoms: Dry cough, Other (feeling of dry mouth). No: Fever, Dyspnea Contributing factors: No: Sick contact, COPD / asthma Similar symptoms before: Has not had sx before Recently seen: Clinic, Emergency Dept Review of Systems Constitutional: reports: Fatigue. denies: Fever, Chills, Myalgias Nose: denies: Rhinorrhea / runny nose, Congestion Throat: denies: Oral lesions / sores (but feeling of dry mouth) Cardiac: denies: Chest pain / pressure, Palpitations Respiratory: reports: Cough. 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 : None HEENT: None Psych: None Musculoskeletal: None Derm: None - Past Surgical History Past Surgical History: Yes General: Appendectomy /BUILDING SERVICES TECHNICIAN: section, Hysterectomy - Present Medications Home Medications: Ambulatory Orders Medication Instructions Recorded Confirmed Furosemide 20 mg PO DAILY 02/07/14 10/15/18 Insulin Glargine,Hum.rec.anlog 24 units 02/07/14 02/07/14 [Lantus] Levothyroxine [Synthroid] 75 mcg PO DAILY 02/07/14 10/15/18 Lisinopril 20 mg PO DAILY 02/07/14 10/15/18 Omeprazole [PriLOSEC] 20 mg PO BID 02/07/14 10/15/18 Simvastatin 20 mg PO QPM 02/07/14 10/15/18 Warfarin Sodium [Coumadin] 2 mg PO DAILY 02/07/14 10/15/18 glipiZIDE [Glucotrol] 5 mg PO BID 02/07/14 10/15/18 Carvedilol 25 mg PO BID 09/14/17 10/15/18 Guaifenesin/Dextromethorphan 1 each PO BID PRN #20 tab.er.12h 10/27/18 [Mucinex Dm ER 600-30 mg Tablet] - Allergies Allergies/Adverse Reactions: Allergies Allergy/AdvReac Type Severity Reaction Status Date / Time cephalexin monohydrate * Allergy Rash Verified 10/29/18 15:58 [From Keflex] Latex, Natural Rubber Allergy Unknown Verified 10/29/18 15:58 metformin [From Glucophage] Allergy Unknown Verified 10/29/18 15:58 Penicillins Allergy Itching Verified 10/29/18 15:58 Sulfa (Sulfonamide Allergy Rash Verified 10/29/18 15:58 Antibiotics) - Social History Does the pt smoke?: No Smoking Status: Never smoker Does the pt drink ETOH?: No Does the pt have substance abuse?: No - Immunizations Immunizations are current?: Yes Immunizations: TDAP >10years/unknown - POLST Patient has POLST: No PD ED PE NORMAL - Vitals Vital signs reviewed: Yes - General General: Alert and oriented X 3, No acute distress, Well developed/nourished - HEENT HEENT: Pharynx benign, Other (no erosions nor mucosal inflammation seen.) - Neck Neck: Supple, no meningeal sign, No adenopathy - Cardiac Cardiac: RRR, No murmur - Respiratory Respiratory: Clear bilaterally - Abdomen Abdomen: Soft, Non tender - Derm Derm: Normal color, Warm and dry - Extremities Extremities: No tenderness to palpate, Normal ROM s pain, No edema, No calf tenderness / cord - Neuro Neuro: Alert and oriented X 3, No motor deficit, Normal speech Results - Vitals Vitals: Vital Signs - 24 hr 10/29/18 10/29/18 10/29/18 15:53 18:05 20:17 Temperature 35.5 C L 36.5 C 36.4 C L Heart Rate 82 75 69 Respiratory 16 14 20 Rate Blood Pressure 150/101 H 148/98 H 165/104 H O2 Saturation 95 97 99 Oxygen O2 Source Room air - Labs Labs: Laboratory Tests 10/29/18 10/29/18 10/29/18 19:05 19:05 19:05 WBC 8.6 RBC 4.23 Hgb 11.6 L Hct 35.3 L MCV 83.4 MCH 27.4 MCHC 32.9 RDW 13.5 Plt Count 251 MPV 8.8 Neut # (Auto) 6.3 Lymph # (Auto) 1.5 [place] # (Auto) 0.8 Eos # (Auto) 0.0 Baso # (Auto) 0.1 Absolute Nucleated RBC 0.00 Nucleated RBC % 0.0 PT 33.4 H INR 3.0 H Sodium 141 Potassium 3.3 L Chloride 105 Carbon Dioxide 22 Anion Gap 14.0 H BUN 25 H Creatinine 1.2 H Estimated GFR (MDRD) 43 L Glucose 81 Calcium 9.8 Total Bilirubin 0.6 AST 23 ALT 15 Alkaline Phosphatase 62 Total Protein 6.9 Albumin 3.7 Globulin 3.2 Albumin/Globulin Ratio 1.2 Lipase 30 PD MEDICAL DECISION MAKING - ED course Complexity details: reviewed old records (chest xray clear yesterday. Did not see need for repeat. She is taking fluids okay and urinating often, she says. So does not seem dehydrated per se, but likely having dry mouth side effects of the meds. ), reviewed results, considered differential, d/w patient Departure - Departure Disposition: 01 Home, Self Care Clinical Impression: Mouth dryness, Cough Condition: Stable Record reviewed to determine appropriate education?: Yes Follow-Up: Tuan Moreno MD [Primary Care Provider] - Comments: Finish up the Levaquin antibiotic with tomorrow's dose as planned. Finish out the prednisolone steroid tapering over the next few days as previously directed. Your feeling of dryness can be coming from those medications. It also can be coming from the expectorant/cough medicine tablets that you are taking. These will help clear some of the phlegm (guaifenesin with dextromethorphan), but will add to the dry mouth feeling. You can discontinue the expectorant medicine if t he dryness is bothersome. Stay well-hydrated and drink fluids frequently. Continue your other usual medications. Discharge Date/Time: 10/29/18 20:35
[2018-10-29 20:18] VITALS: BP 165/104
== END 2018-10-29 20:35 | disposition home or self-care (01) ==
LOC: ED 15:46
DX: R68.2 Dry mouth, unspecified (principal); R05 Cough; I10 Essential (primary) hypertension; E11.9 Type 2 diabetes mellitus without complications; Z79.4 Long term (current) use of insulin; I48.91 Unspecified atrial fibrillation; Z79.01 Long term (current) use of anticoagulants
CPT/HCPCS: 36415; 80053; 83690; 85025; 85610; 99282; 99283

== ENCOUNTER 2018-10-30 08:00 | Outpatient (CLI) | payer MEDICARE, OTHER | END 2018-10-30 08:01 | disposition home or self-care (01) | LOC: LAB.WCP 08:00 | PROVIDERS: ATTEND Family Medicine | DX: I48.0 Paroxysmal atrial fibrillation (principal); Z79.01 Long term (current) use of anticoagulants ==

== ENCOUNTER 2018-12-07 15:41 | Outpatient (CLI) | payer MEDICARE, OTHER | END 2018-12-07 23:59 | disposition home or self-care (01) | LOC: LAB.R 15:41 | PROVIDERS: ATTEND Family Medicine | DX: R39.9 Unspecified symptoms and signs involving the genitourinary system (principal) | CPT/HCPCS: 87086 ==

== ENCOUNTER 2018-12-12 09:17 | Inpatient (IN) | payer MEDICARE, OTHER ==
[2018-12-12] MEDS ORDERED: IPRATROPIUM/ALBUTEROL 3 ML NEB INH STA (09:37)
--- NOTE | 2018-12-12 09:47 | ED Physician Documentation ---
PD HPI DYSPNEA - Stated complaint Stated Complaint: SOA - Chief complaint Chief Complaint: Resp - History obtained from History obtained from: Patient, Family - History of Present Illness Timing - onset: How many days ago (3) Timing - onset during: Rest (3) Timing - duration: Days Timing - details: Gradual onset Pain level max: 0 Pain level now: 0 Inciting event(s): URI Improved by: Rest Worsened by: Exertion Associated symptoms: Cough, Wheezing. No: Fever, Hemoptysis, Palpitations, Diaphoresis Similar symptoms before: Diagnosis (pneumonia) Recently seen: Not recently seen Review of Systems Ten Systems: 10 systems reviewed and negative Constitutional: denies: Fever, Chills Cardiac: denies: Chest pain / pressure Respiratory: denies: Cough GI: denies: Vomiting : denies: Dysuria Skin: denies: Rash Musculoskeletal: denies: Neck pain, Back pain Neurologic: denies: Headache PD PAST MEDICAL HISTORY - Past Medical History Past Medical History: Yes Cardiovascular: Hypertension, High cholesterol, Atrial fibrillation Respiratory: None, Pneumonia Neuro: None Endocrine/Autoimmune: Type 2 diabetes GI: None 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 : None HEENT: None Psych: None Musculoskeletal: None Derm: None - Past Surgical History Past Surgical History: Yes General: Appendectomy /SENIOR MANUFACTURING SUPERVISOR: section, Hysterectomy - Present Medications Home Medications: Ambulatory Orders Medication Instructions Recorded Confirmed Furosemide 20 mg PO DAILY 02/07/14 10/15/18 Insulin Glargine,Hum.rec.anlog 24 units 02/07/14 02/07/14 [Lantus] Levothyroxine [Synthroid] 75 mcg PO DAILY 02/07/14 10/15/18 Lisinopril 20 mg PO DAILY 02/07/14 10/15/18 Omeprazole [PriLOSEC] 20 mg PO BID 02/07/14 10/15/18 Simvastatin 20 mg PO QPM 02/07/14 10/15/18 Warfarin Sodium [Coumadin] 2 mg PO DAILY 02/07/14 10/15/18 glipiZIDE [Glucotrol] 5 mg PO BID 02/07/14 10/15/18 Carvedilol 25 mg PO BID 09/14/17 10/15/18 Guaifenesin/Dextromethorphan 1 each PO BID PRN #20 tab.er.12h 10/27/18 [Mucinex Dm ER 600-30 mg Tablet] - Allergies Allergies/Adverse Reactions: Allergies Allergy/AdvReac Type Severity Reaction Status Date / Time cephalexin monohydrate * Allergy Rash Verified 12/12/18 09:31 [From Keflex] Latex, Natural Rubber Allergy Unknown Verified 12/12/18 09:31 metformin [From Glucophage] Allergy Unknown Verified 12/12/18 09:31 Penicillins Allergy Itching Verified 12/12/18 09:31 Sulfa (Sulfonamide Allergy Rash Verified 12/12/18 09:31 Antibiotics) - Social History Does the pt smoke?: No Smoking Status: Never smoker Does the pt drink ETOH?: No Does the pt have substance abuse?: No - Immunizations Immunizations are current?: Yes Immunizations: TDAP >10years/unknown - POLST Patient has POLST: No PD ED PE NORMAL - Vitals Vital signs reviewed: Yes - General General: Alert and oriented X 3, No acute distress - HEENT HEENT: Moist mucous membranes - Neck Neck: Supple, no meningeal sign - Cardiac Cardiac: RRR - Respiratory Respiratory: Other (wheezing B) - Abdomen Abdomen: Soft, Non tender, Non distended - Derm Derm: Warm and dry - Extremities Extremities: Other (1+ edema) - Neuro Neuro: Alert and oriented X 3 Results - Vitals Vitals: Vital Signs - 24 hr 12/12/18 12/12/18 12/12/18 09:26 09:45 09:49 Temperature 36.6 C Heart Rate 82 73 72 Respiratory 22 24 23 Rate Blood Pressure 239/101 H O2 Saturation 87 L 84 L 92 12/12/18 12/12/18 12/12/18 10:02 11:10 11:40 Temperature Heart Rate 73 63 76 Respiratory 23 16 21 Rate Blood Pressure 162/141 H O2 Saturation 94 100 12/12/18 12/12/18 12/12/18 11:44 11:52 12:13 Temperature Heart Rate 75 62 Respiratory 19 17 Rate Blood Pressure 182/78 H 175/79 H O2 Saturation 100 100 Oxygen O2 Source Nasal cannula Oxygen Flow Rate 2 - EKG (time done) 0940 Rate: Rate (enter#) (75) Rhythm: NSR [place]: Normal Intervals: Prolonged IA QRS: Normal Ischemia: Normal ST segments - Labs Labs: Laboratory Tests 12/12/18 12/12/18 12/12/18 10:17 10:17 10:18 WBC 14.0 H RBC 4.26 Hgb 11.8 L Hct 37.5 MCV 88.0 MCH 27.7 MCHC 31.5 L RDW 14.4 Plt Count 267 MPV 11.5 H Neut # (Auto) 11.0 H Lymph # (Auto) 1.7 Person # (Auto) 1.0 Eos # (Auto) 0.1 Baso # (Auto) 0.1 Absolute Nucleated RBC 0.00 Nucleated RBC % 0.0 PT 21.7 H INR 2.0 H Sodium 141 Potassium 3.1 L Chloride 103 Carbon Dioxide 25 Anion Gap 13.0 BUN 17 Creatinine 0.9 Estimated GFR (MDRD) 60 L Glucose 135 H Calcium 10.0 Total Bilirubin 0.8 AST 20 ALT 15 Alkaline Phosphatase 67 B-Natriuretic Peptide Total Protein 7.4 Albumin 4.0 Globulin 3.4 Albumin/Globulin Ratio 1.2 Lipase 25 12/12/18 10:18 WBC RBC Hgb Hct MCV MCH MCHC RDW Plt Count MPV Neut # (Auto) Lymph # (Auto) Person # (Auto) Eos # (Auto) Baso # (Auto) Absolute Nucleated RBC Nucleated RBC % PT INR Sodium Potassium Chloride Carbon Dioxide Anion Gap BUN Creatinine Estimated GFR (MDRD) Glucose Calcium Total Bilirubin AST ALT Alkaline Phosphatase B-Natriuretic Peptide 365 H Total Protein Albumin Globulin Albumin/Globulin Ratio Lipase - Rads (name of study) cxr Radiology: Prelim report reviewed, EMP read contemporaneously, See rad report (Interval development of bibasilar opacities and right midlung opacities and airway thickening. The appearance is consistent with florid atypical pneumonia or resolving non-lobar pneumonia. A component of bronchitis or reactive airways disease is likely given the prominent bronchial wall thickening. ) PD MEDICAL DECISION MAKING - ED course Complexity details: reviewed results, re-evaluated patient, considered differential, d/w patient, d/w family ED course: 83-year-old female with significant hypoxia, leukocytosis and chest x-ray consistent with atypical pneumonia. Given Rocephin and azithromycin. She is wheezing as well, given albuterol treatment and feels better. She is still hypoxic and we will admit her to the hospitalist for further care. Discussed the case with Dr. Morris, hospitalist who accepts. This document was made in part using voice recognition software. While efforts are made to proofread this document, sound alike and grammatical errors may occur. Departure - Departure Disposition: 66 [facility] DC/Xfer Clinical Impression: Hypoxia Pneumonia Qualifiers: Pneumonia type: due to unspecified organism Laterality: bilateral Lung location: unspecified part of lung Qualified Code(s): J18.9 - Pneumonia, unspecified organism Condition: Stable
[2018-12-12 10:19] LABS: BASOPHILS # (AUTO) 0.1 10^3/uL (0.0-0.1); BASOPHILS % (AUTO) 0.6 %; EOSINOPHILS # (AUTO) 0.1 10^3/uL (0.0-0.7); EOSINOPHILS % (AUTO) 0.8 %; HGB - HEMOGLOBIN 11.8 g/dL (12.0-16.0); LYMPHOCYTES # (AUTO) 1.7 10^3/uL (1.5-3.5); LYMPHOCYTES % (AUTO) 12.4 %; MEAN CORPUSCULAR HEMOGLOBIN 27.7 pg (27.0-31.0); MEAN CORPUSCULAR HGB CONC 31.5 g/dL (32.0-36.0); MEAN PLATELET VOLUME 11.5 fL (7.9-10.8); MONOCYTES % (AUTO) 7.2 %; NEUTROPHILS % (AUTO) 78.4 %; PLT - PLATELET COUNT 267 10^3/uL (130-450); RED BLOOD COUNT 4.26 10^6/uL (4.20-5.40); RED CELL DISTRIBUTION WIDTH 14.4 % (12.0-15.0)
[2018-12-12 10:38] LABS: ALBUMIN/GLOBULIN RATIO 1.2 (1.0-2.2); BILIRUBIN,TOTAL 0.8 mg/dL (0.2-1.0); CREATININE 0.9 mg/dL (0.4-1.0); TOTAL PROTEIN 7.4 g/dL (6.7-8.2)
--- NOTE | 2018-12-12 11:30 | XRAY Report ---
Reason: dyspnea Procedure Date: 12/12/2018 Accession Number: [id number] / [id number] Procedure: XR - Chest 1 View X-Ray CPT Code: 28602 FULL RESULT: EXAM: CHEST RADIOGRAPHY EXAM DATE: 12/12/2018 11:05 AM. CLINICAL HISTORY: Dyspnea. COMPARISON: CHEST 2 VIEW 10/27/2018 5:13 PM. TECHNIQUE: 1 view. FINDINGS: Lungs/Pleura: Interval development of interstitial markings in a basilar predominant pattern right greater than left concerning for acute airspace disease. No pleural effusion or pneumothorax. There is also bronchial wall thickening. Mediastinum: Within exam limitations, the cardiomediastinal contour is normal. Other: None. IMPRESSION: Interval development of bibasilar opacities and right midlung opacities and airway thickening. The appearance is consistent with florid atypical pneumonia or resolving non-lobar pneumonia. A component of bronchitis or reactive airways disease is likely given the prominent bronchial wall thickening. RADIA
[2018-12-12 11:57] LABS: PT - PROTHROMBIN TIME 21.7 secs (9.9-12.6)
[2018-12-12] MEDS ORDERED: ONDANSETRON ODT 4 MG TABLET TL PRN (12:23)
[2018-12-12] MEDS ORDERED: ONDANSETRON 4 MG/2 ML VIAL IVP PRN (12:23)
[2018-12-12] MEDS ORDERED: LISINOPRIL 5 MG TABLET PO STA (12:32)
[2018-12-12] MEDS ORDERED: WARFARIN 1 MG TABLET PO STA (12:32)
[2018-12-12] MEDS ORDERED: levoFLOXacin 750 MG/150 ML 750 MG/150 ML BAG IV SCH ×2 (13:00→14:30)
[2018-12-12] MEDS ORDERED: AZITHROMYCIN INJ 500 MG in SODIUM CHLORIDE 0.9% 250 ML IV SCH ×2 (13:00→14:20)
[2018-12-12 13:36] LABS: HB2 TOTAL 11.9 g/dL; HEMOGLOBIN A1C 0.72 g/dL; HEMOGLOBIN A1C % 7.7 % (4.6-6.2)
[2018-12-12] MEDS ORDERED: ACETAMINOPHEN 325 MG TABLET PO PRN (13:54)
[2018-12-12] MEDS: SODIUM CHLORIDE 0.9% 1,000 ML IV SCH (14:13)
[2018-12-12] MEDS: SODIUM CHLORIDE FLUSH 0.9% 10 ML SYRINGE IVP SCH (14:14)
[2018-12-12] MEDS ORDERED: POTASSIUM CHLORIDE 20 MEQ/15 ML UDC PO ONE (17:00)
[2018-12-12] MEDS ORDERED: oxyCODONE 5 MG TABLET PO PRN (17:00)
--- NOTE | 2018-12-12 17:01 | HISTORY & PHYSICAL EXAMINATION ---
History of Present Illness - Admitted From Admitted From:: home - History Obtained From Records Reviewed: ED records History obtained from: EMR notes, patient - History of Present Illness HPI Comment/Other: 83 year old female who lives develped URI symptoms of cough, wheezing ~ 3 days ago, no asssociated fever chills CXR 2 view in ED, Interval develpment of bibasilar opacities incl r midlung opacities and airway thickening, ; c/w atypical pneumoina ("florid" per ED, or resolving nonlobar pneumonia VS in ed Afeb, Hypertensive, not tachy 175 HTN 239/101 this am 87% on RA, 92 on NC History - Past Medical History Cardiovascular: reports: Hypertension, High cholesterol, Atrial fibrillation Respiratory: reports: None, Pneumonia Neuro: reports: None Endocrine/Autoimmune: reports: Type 2 diabetes GI: reports: None 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 : reports: None HEENT: reports: None Psych: reports: Anxiety Musculoskeletal: reports: Osteoarthritis Derm: reports: None MRSA Hx?: No - Past Surgical History General: reports: Appendectomy /CABLE MOCK UP ASSEMBLER: reports: section, Hysterectomy - POLST Patient has POLST: No Meds/Allgy - Home Medications Home Medications: Ambulatory Orders Medication Instructions Recorded Confirmed Furosemide 20 mg PO DAILY 02/07/14 12/12/18 Levothyroxine [Synthroid] 75 mcg PO DAILY 02/07/14 12/12/18 Lisinopril 20 mg PO DAILY 02/07/14 12/12/18 Omeprazole [PriLOSEC] 20 mg PO BID 02/07/14 12/12/18 Simvastatin 30 mg PO QPM 02/07/14 12/12/18 Warfarin Sodium [Coumadin] 1 mg PO [id number] 02/07/14 12/12/18 glipiZIDE [Glucotrol] 5 mg PO DAILY 02/07/14 12/12/18 Carvedilol 25 mg PO BID 09/14/17 12/12/18 Cetirizine [ZyrTEC] 10 mg PO DAILY 12/12/18 12/12/18 Glipizide 10 mg PO DAILY PM 12/12/18 12/12/18 Insulin Glargine [Lantus Solostar] 34 units SUBQ DAILY PM 12/12/18 12/12/18 Warfarin [Coumadin] 1.5 mg PO SUMO 12/12/18 12/12/18 predniSONE [Prednisone] 20 mg PO DAILY MDD 5 DAY THERAPY 12/12/18 12/12/18 ONLY; FOR GOUT - Allergies Allergies/Adverse Reactions: Allergies Allergy/AdvReac Type Severity Reaction Status Date / Time cephalexin monohydrate * Allergy Rash Verified 12/12/18 09:31 [From Keflex] Latex, Natural Rubber Allergy Unknown Verified 12/12/18 09:31 metformin [From Glucophage] Allergy Unknown Verified 12/12/18 09:31 Penicillins Allergy Itching Verified 12/12/18 09:31 Sulfa (Sulfonamide Allergy Rash Verified 12/12/18 09:31 Antibiotics) Exam - Vital Signs Vital Signs: Vital Signs x48h Temp Pulse Pulse Resp BP BP Pulse Ox 12/12/18 16:32 36.3 C L 76 20 183/70 H 100 12/12/18 14:11 36.5 C 79 18 175/115 H 99 12/12/18 13:04 36.8 C 66 19 186/90 H 100 12/12/18 12:13 62 17 175/79 H 100 12/12/18 11:52 182/78 H 12/12/18 11:44 75 19 100 12/12/18 11:40 76 21 162/141 H 100 12/12/18 11:10 63 16 12/12/18 10:02 73 23 94 12/12/18 09:49 72 23 92 12/12/18 09:45 73 24 84 L 12/12/18 09:26 36.6 C 82 22 239/101 H 87 L Conclusion/Plan - Lab Results Fish Bones: 12/12/18 10:17 12/12/18 10:17
[2018-12-12] MEDS: INSULIN ASPART 300 UNIT/3 ML PEN SUBQ SCH ×2 (17:08→20:49)
[2018-12-12] MEDS: IPRATROPIUM/ALBUTEROL 3 ML NEB INH SCH (18:00)
[2018-12-12] MEDS ORDERED: IOVERSOL 320 100 ML VIAL IVP ONE ×2 (18:25→19:00)
[2018-12-12] MEDS: levoFLOXacin 750 MG/150 ML 750 MG/150 ML BAG IV SCH (19:04)
[2018-12-12] MEDS: SACCHAROMYCES BOULARDII 250 MG CAPSULE PO SCH (19:15)
--- NOTE | 2018-12-12 19:48 | HISTORY & PHYSICAL EXAMINATION ---
DATE OF SERVICE: 12/12/2018 Physician: Joycelyn Morris MD DATE OF ADMISSION: December 12, 2018. PRIMARY CARE PROVIDER: Tuan Moreno MD. ADMITTING PROVIDER: Joycelyn Morris MD. CHIEF COMPLAINT: Shortness of breath and fatigue. HISTORY OF PRESENT ILLNESS: This unfortunate, elderly female has been failing since about April of last year. Her has been diagnosed with cancer and it has been a very stressful thing for her and her family, as they get him through this with multiple drives to [place] to see specialists. Family feels that she has been ignoring her own health care issues. Over the last few months, they discovered that she has chronic kidney disease, stage 3. Medications needed to be adjusted and her creatinine went from 1.5 to 0.9. She has been diagnosed as aortic stenosis on a July 2018 echo. Her left ankle has become more achy and painful and does not allow her to ambulates so she has lost a lot of ground with functional mobility. She has been diagnosed with gout. She seems to have lost quite a bit of cognitive function while her daughter still trusts mom to drive, to do laundry, make dinner, she has definitely noticed a change in mom's ability to pay attention, and responded quickly to things. Patient feels that she got sick somewhere in July with pneumonia. She was treated in the office. But I am not seeing where there was a chest x-ray associated from what she tells me. She said she did not really recovered got sick again in October. A chest x-ray 10/23/2018 showed an elongated lingular opacity. She was treated with Levaquin. A repeat chest x-ray 10/27/2018 showed hyperinflated lungs with flattened diaphragm, and there is no mention of the lingular opacity and it seems to have resolved. She has been seen 2 or 3 times in the emergency room for this cough, chest congestion. First by Dr. Arellano, then Dr. Feliciano. Was also seen by her primary care provider for followup. Treatment consisted of Levaquin. She developed a vulvovaginal candidiasis and was then treated with fluconazole. Over the last 3 or 4 days, she feels like it is coming all back. She is coughing, wheezing. She denies fever. Hemoptysis. The chest tight where she feels like she cannot bring up the phlegm that she needs to bring up. There has been no change in bowel habits, no abdominal pain, no diarrhea with this. She did start out all of it with a cold and URI symptomatology. Today, her shortness of breath with bothersome enough that she wanted to come to the emergency room. She was seen by Dr. Gastelum. Temperature was 36.6, heart rate was 82, respirations were 22. Blood pressure was initially read as 239/101 with an O2 saturation of 87%. Dr. Gastelum treated with ipratropium and IV fluids. A chest x-ray shows interval development of bibasilar opacities and right mid lung opacities and airway thickening. It is consistent with a florid atypical pneumonia or resolving nonlobar pneumonia. In addition to the chest x-ray findings, she does have an elevated white cell count of 14. When she was first treated in October, her white cell count was 5.4 and 8.6. As such, this lady is admitted with hypoxia of 84-87% on room air, leukocytosis and an abnormal chest x-ray. PAST MEDICAL HISTORY 1. Morbid obesity with fatty liver. 2. Hypertension. 3. Lifelong chronic atrial fibrillation. Echocardiogram 10/2010 and 05/2013 are suboptimal because of her size. She has left ventricular hypertrophy that is mild. Ejection fraction 65%. Pulmonary hypertension at 54 mmHg. Moderate mitral regurgitation. Between 2010 and 2013 there seems to be mild worsening of pulmonary hypertension. 4. Moderate aortic stenosis. An echocardiogram 07/2018 shows worsening aortic stenosis from 2013 to now, worsening left atrial enlargement. Her pulmonary hypertension. Seems to have improved a little bit. 5. Gastroesophageal reflux disease. 6. Type 2 diabetes mellitus, present since 2010. A1c was 9.23% in her PCP office. She does not have retinopathy, but does have neuropathy and nephropathy. 7. Chronic kidney disease. She had worsened her creatinine enough that she became chronic kidney disease 3. Was seen by the [facility]. They found that she was doubled up on blood pressure medication that was harsh on her kidneys. One of the medications were discontinued and family feels that her kidney function has improved since that time. Creatinine today is 0.9. 8. Osteoarthritis. Currently having neck spasms and seeking an MRI. 9. Gout. 10. Hyperlipidemia. 11. Obstructive sleep apnea since 1995. [facility] by [facility] and is on CPAP. 12. Diverticulosis seen on colonoscopy 2007. Confirmed on CT scans in the past. Also had internal hemorrhoids. 13. Allergic rhinitis. 14. Cataracts done 05/2012 and 06/2012. 15. Chronic grade 2 diastolic heart failure. ALLERGIES: SHE IS ALLERGIC TO CEPHALEXIN CAUSES A RASH, LATEX CAUSES UNKNOWN REACTION, METFORMIN CAUSES AN UNKNOWN REACTION, PENICILLIN CAUSES ITCHING AND SULFA CAUSES A RASH. MEDICATIONS 1. Carvedilol 25 mg p.o. b.i.d. 2. Zyrtec 10 mg daily. 3. Lasix 20 mg daily. 4. Glucotrol 5 mg daily. It is unclear with her medication list, but she also appears to be on Glipizide 10 mg daily. I am not sure if she is really taking both pills and the patient is not either. 5. Lantus 34 units at night. 6. Synthroid 75 mcg daily. 7. Lisinopril 20 mg daily. 8. Omeprazole 20 mg p.o. b.i.d. 9. Prednisone 20 mg, tapering dose for 5 days for gout. She has 2 days left. 10. Simvastatin 30 mg at night. 11. Coumadin 1.5 mg on Tuesday, Tuesday and 1 mg the rest of the week. SOCIAL HISTORY: She was born in [place]. Moved to [facility] with her parents when she was 11. Her parents did a lot of dairy work. They were coater hand and ranch hands. When she moved to the [place], they were taking care of another farm, the [employer]. She eventually got in 1955. Had 2 children. 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 She says that she never smoked, and she is adamant [TIME: 11:06] and never drank. She has no history of recreational substance abuse. Still to her first , they live in their own home. PREVIOUS LEVEL OF FUNCTION: Fairly good according to the daughter until April. Mom has slowed down significantly from a cognitive perspective. Slow to respond to questions and more forgetful. Her left ankle has left her with decreased mobility. Spends a lot of time sitting in a chair at home and falling asleep, but she is still able to do things such as getting up, queue a washer, do a load of wash, fold it. Still able to get up to walk to the kitchen to make a light dinner. When she goes to the grocery store, driving in her own car, she does need help getting stuff off of an shelving unit if the object has really heavy like a water bottle. FAMILY HISTORY 1. Dad in his mid 70s of lung cancer, was a smoker. He also had bilateral amputations of his legs. 2. Mom in her 50s of complications of diabetes. 3. Siblings are all . She is 1 of 8 children. They have all of various diabetic, lung emphysematous problems, and heart problems. She is the only surviving one of her generation. 4. Two children are healthy. No diabetes, hypertension, emphysema, mental health issues. REVIEW OF SYSTEMS CONSTITUTIONAL: She has had constitutional complaints of daily night sweats for the last week or two. Appetite has come and gone. When she became sick with the pneumonia, she went from 224 pounds to 214. This last weekend, she felt better and was up to 218 pounds. ENT: She is seen regularly by ophthalmology and she does not have retinopathy. She does have a secondary cataract. She denies blurred vision, amaurosis, facial dysesthesia, facial droop. PULMONARY: She has obstructive sleep apnea, but does not usually have problems with coughing, orthopnea, phlegm production. She does not feel that breathing has slowed her down over the last few months, but more her ankles and her legs and their pain. CARDIOVASCULAR: She is unaware that she has diastolic heart failure. She is unaware that she has aortic stenosis. She has mild chronic leg edema and very large legs as remain unchanged. Her endurance has decreased over the last several months, but again she attributes that to ankle pain and decreased mobility not necessarily heart or lungs. She denies palpitations, chest pain in spite of her history of atrial fibrillation. GASTROINTESTINAL: Frequent GERD. Antibiotics really will upset her stomach. No diarrhea, no blood in her stool. GENITOURINARY: Urgency, frequency, urinary incontinence with coughing or sneezing unchanged. There is no hematuria. No flank pain. JOINTS: Neck pain really hurts. Again, trying to get water bottle of the aisle at [employer] really causes her neck to spasm. She has chronic low back pain, chronic knee pain. She attributes that to getting older and heavier and stiffer. Left ankle is particularly bothersome and is being treated for gout. SKIN: Denies new lesions or rashes. He gets easily itchy. PSYCHIATRIC: Denies depression, anxiety. Although the daughter feels that mom is under a lot of stress. NEUROLOGIC: gradually diminishing strength and mobility attributed to joint pain. Gradually diminishing cognitive function over the last several months, but daughter still trusts her to drive. No history of seizures. She has fallen because she tripped but not because she lost her balance. No focal deficits. PHYSICAL EXAMINATION VITAL SIGNS: Temperature is 36.6. She is now on med-surg and pulse is 73, respirations are 23, and she is 94% saturated on 2 liters. Blood pressure is 186/90. GENERAL: She is a 5 feet 5 inch, elderly female who is 101.5 kg. On general physical exam, she is short, stocky, quite overweight, very slow to move, with psychomotor slowing and mouth open, vague stare. HEAD AND NECK: Unremarkable. She is not dehydrated. Sclerae are nonicteric, no facial asymmetry. The predominant finding on head and neck exam is slack facies. NECK: Supple. Difficult to assess for JVD because of short stature. No goiter. No bruits. LUNGS: Coarse upper airway tubular breath sounds mid lungs up to the apices. Diminished breath sounds at the bases with crackles bilaterally. No egophony, no increased respiratory effort. HEART: PMI is not palpable. She has a systolic murmur heard at the apex, and as we tracked it gets louder in the right upper sternal border, does radiate to the carotids. It is not severe. ABDOMEN: Super obese, soft, nontender, hypoactive bowel sounds. Difficult to assess for any organomegaly because of its size. SKIN: Some andrzej intertrigo in the groin, very slight resolution in the pannus of her stomach. Legs are without rubra or venous stasis changes EXTREMITIES: Very large tree trunk legs. Mild trace pitting edema of the calves, shins and ankles. But good foot pulses. There is no skin breakdown, there is no evidence of chronic right-sided heart failure. No clubbing or cyanosis. NEUROLOGIC: There is a psychomotor slowing. Daughter notes that has been present over the last few months, but she is still alert, oriented to person, place and time and able to give me a lucid history. The sequential and makes sense. Cranial nerves 2 through 12 appear grossly intact. Strength is normal in that she is able to lift up her arms, lift up her legs. In trying to get herself to sit up she is able to sit, but transitioning to a standing position is very difficult because she cannot get to the edge of the bed to then stand. Needs help with that. Once up, with a 1-2-3 heaving motion, she is able to stand with a walker and walk with short steps to the bathroom. She does not have tachypnea or any focal weakness to do this. She only needs standby contact guard assist. LABORATORY DATA: Sodium 141, potassium 3.1, BUN 17, creatinine 0.9, GFR 60, glucose 135, A1c 7.7%. Liver enzymes normal with a BNP 365. White cell count is 14,000, hemoglobin 11.8, hematocrit 37.5. Platelets are 267. INR is 2. ASSESSMENT/PLAN 1. Presumed community-acquired pneumonia that has been slow to respond to oral antibiotics with Levaquin in the outpatient setting. Today's chest x-ray is markedly abnormal with bilateral opacities, and seems to be florid atypical pneumonia with an elevated white cell count and new hypoxia. Nevertheless, I am noting that she has a severely elevated blood pressure on presentation in the emergency room and a history of aortic stenosis which could also cause a change in her chest xray. PLAN A. Inpatient admission. B. Attestation: The patient will be discharged within 96 hours. C. SHE IS ALLERGIC TO CEPHALOSPORINS and I used Levaquin and azithromycin, but pharmacy felt that was over usage of antibiotics for atypical coverage and suggested only Levaquin. As the patient is now only on Levaquin. She has already been treated with Levaquin before. D. Adjust antibiotics on the basis of blood culture results that were done in the emergency room. E. Attempt to induce sputum culture. F. Workup for other processes of abnormal chest x-ray. 2. Chronic diastolic congestive heart failure. BNP is only in the 300s, but she had severely elevated blood pressure in the emergency room. Could some component of her abnormal chest x-ray be congestive heart failure? PLAN: A. No repeat echo. She had an echocardiogram done 07/2018 documented in the moderate aortic stenosis. Intact ejection fraction. Grade 2 diastolic dysfunction. B. Lasix will be used judiciously. If it is notable that her creatinine is improved over the last year with adjustment of her medications. We will recheck BNP in the morning and see if I need to resume Lasix tomorrow. 3. Type 2 diabetes mellitus, uncontrolled, with hyperglycemia, with complications, on long-term use of insulin. Complications include nephropathy and neuropathy. PLAN: Goal A1c is less than 7% and I shared that with the patient and her family. She is improved from the 9.3% she had at her PCP office previously. We will give her Lantus. Hold off on oral hypoglycemics. Verify if she is both on Glucotrol and Glipizide. Also add sliding scale insulin before meals. 4. Chronic atrial fibrillation. Rate is controlled at this time. PLAN: Continue her Coreg 25 mg p.o. b.i.d. Continue Coumadin. Check INR daily. I believe the Coreg is not being given for diastolic heart failure. Nitrates and diuretics would be more indicated for that. 5. Hypertension. Severely uncontrolled on presentation. We will resume her carvedilol and lisinopril. May need addition of Norvasc. Tomorrow morning, we will reevaluate her blood pressures from the emergency room to tomorrow morning to see if that needs to be done. 6. Obstructive Sleep apnea with use of CPAP. I will have family bring in her home CPAP mask for use in the hospital. 7. History of recent attack of gout. On tapering steroid use. We will hold off on steroids while here. If there is a flare will resume them. We will review those films that she had taken of her ankle. 8. FULL CODE status. Patient tells me a story of when she and her had to take her [id number] off life support. He had a terminal condition, became acutely ill, was in ICU. even though they knew he had less than 6 weeks left to live, this still felt horrible guilty about taking him off life support, but she herself has never thought about disability, ongoing illness and what she would like. She says she really does not know. While on the one hand, she does not want her children to decide, she cannot decide either. So, at this time she will be FULL CODE status. Possibly start initiating advanced care plans with her children and her and let us know. 9. Deep venous thrombosis prophylaxis is DARIEL lópez and her Coumadin. TD: 12/12/2018 18:48 [email or web address]
--- NOTE | 2018-12-12 20:07 | CT Report ---
Reason: atypical pneumonia on cxr, won't resolve Procedure Date: 12/12/2018 Accession Number: [id number] / [id number] Procedure: CT - CHEST W CPT Code: FULL RESULT: EXAM: CT CHEST EXAM DATE: 12/12/2018 06:55 PM. CLINICAL HISTORY: Persistent lung infiltrates. COMPARISONS: None. TECHNIQUE: Routine helical CT imaging was performed through the chest. IV contrast: 65 cc Optiray 320. Reconstructions: Coronal and sagittal. In accordance with CT protocol optimization, one or more of the following dose reduction techniques were utilized for this exam: automated exposure control, adjustment of mA and/or KV based on patient size, or use of iterative reconstructive technique. FINDINGS: Lungs/Pleura: Moderate bilateral simple water density pleural effusions. Multiple 5 mm and smaller scattered noncalcified subpleural nodules bilaterally. Minute amount of bronchiectasis involving the inferior segment of the lingula. No endobronchial lesions. Diffuse patchy peripheral subpleural opacities with some linear stranding toward the robert. No central pulmonary infiltrates. No pneumothorax. Overexpanded lungs. Mediastinum: Mild cardiomegaly without significant pericardial fluid. Multiple small and moderate caliber mediastinal lymph nodes involving the pretracheal, paratracheal, aortopulmonary window and subcarinal regions. Dominant necrotic left paratracheal lymph node measures 2.3 x 1.7 cm, axial image 24 series 4. Thoracic aorta of normal caliber. Bones: Unremarkable. Visualized Abdomen: Unremarkable. Other: None. IMPRESSION: 1. Moderate bilateral pleural effusions. 2. Acute on chronic lung disease consisting of extensive small nonspecific subpleural nodules and airspace opacities. 3. No evidence of a postobstructive process. 4. Moderate nonspecific mediastinal adenopathy. 5. Mild cardiomegaly. RADIA
[2018-12-12] MEDS: CARVEDILOL 12.5 MG TABLET PO SCH (20:59)
[2018-12-12] MEDS: INSULIN GLARGINE 300 UNIT/3 ML PEN SUBQ SCH (20:59)
[2018-12-13] MEDS: SODIUM CHLORIDE FLUSH 0.9% 10 ML SYRINGE IVP SCH ×3 (00:40→16:23)
[2018-12-13] MEDS: SODIUM CHLORIDE 0.9% 1,000 ML IV SCH (02:55)
[2018-12-13] MEDS: IPRATROPIUM/ALBUTEROL 3 ML NEB INH SCH ×3 (04:13→11:35)
[2018-12-13 05:03] LABS: BASOPHILS % (AUTO) 0.3 %; EOSINOPHILS # (AUTO) 0.1 10^3/uL (0.0-0.7); EOSINOPHILS % (AUTO) 1.4 %; MEAN CORPUSCULAR HEMOGLOBIN 26.3 pg (27.0-31.0); MEAN CORPUSCULAR HGB CONC 30.6 g/dL (32.0-36.0); MEAN CORPUSCULAR VOLUME 86.1 fL (81.0-99.0); MEAN PLATELET VOLUME 11.1 fL (7.9-10.8); MONOCYTES # (AUTO) 0.9 10^3/uL (0.0-1.0); NEUTROPHILS # (AUTO) 8.2 10^3/uL (1.5-6.6); NEUTROPHILS % (AUTO) 79.1 %; PLT - PLATELET COUNT 212 10^3/uL (130-450); RED CELL DISTRIBUTION WIDTH 14.6 % (12.0-15.0); WHITE BLOOD COUNT 10.3 x10^3/uL (4.8-10.8)
[2018-12-13 05:09] LABS: INR 2.3 (0.8-1.2); PT - PROTHROMBIN TIME 26.2 secs (9.9-12.6)
[2018-12-13 05:20] LABS: CALCIUM 9.2 mg/dL (8.5-10.3); CREATININE 0.9 mg/dL (0.4-1.0)
[2018-12-13] MEDS: LEVOTHYROXINE 75 MCG TABLET PO SCH (06:22)
[2018-12-13] MEDS: SACCHAROMYCES BOULARDII 250 MG CAPSULE PO SCH ×2 (08:27→16:50)
[2018-12-13] MEDS: CARVEDILOL 12.5 MG TABLET PO SCH ×2 (08:27→21:19)
[2018-12-13] MEDS: INSULIN ASPART 300 UNIT/3 ML PEN SUBQ SCH ×4 (08:27→21:22)
[2018-12-13] MEDS: POLYETHYLENE GLYCOL 3350 17 GM PACKET PO SCH (08:28)
[2018-12-13] MEDS ORDERED: PHYTONADIONE 10 MG/ML AMP PO ONE (10:34)
[2018-12-13] MEDS ORDERED: CHERRY SYRUP 10 ML UDC PO ONE (10:34)
[2018-12-13] MEDS ORDERED: ENOXAPARIN 40 MG/0.4 ML SYRINGE SUBQ SCH (11:00)
--- NOTE | 2018-12-13 11:15 | PROVIDER PROGRESS NOTE ---
Subjective - Prog Note Date Prog Note Date: 12/13/18 Prog Note Time: 11:12 - Subjective Pt reports feeling: No change Subjective: For the most part she is able to get up out of the bed, and once with a walker walks to the bathroom. Very fatigued, but does not get severely tachypneic nor does she get severely hypoxic. Does require oxygen. While she feels better and less chest tightness, she is not substantially improved. She has not had further fever. Her white cell count is lower. Current Medications - Current Medications Current Medications: Active Medications Acetaminophen (Tylenol) 650 mg PO Q4HR PRN PRN Reason: Pain 1 to 4 Albuterol () 2.5 mg INH Q4HR PRN PRN Reason: Wheezing Albuterol/Ipratropium (Duoneb) 3 ml INH RTQID [facility] Stop: 12/13/18 14:59 Last Admin: 12/13/18 07:33 Dose: 3 ml Carvedilol (Coreg) 25 mg PO BID [facility] Last Admin: 12/13/18 08:27 Dose: 25 mg Saravia Syrup () 10 ml PO ONCE ONE Stop: 12/13/18 10:35 Enoxaparin Sodium (Lovenox) 100 mg SUBQ BID [facility] Stop: 12/13/18 21:01 Levofloxacin (Levaquin 750 Mg/150 Ml) 750 mg in 150 mls @ 100 mls/hr IV Q24H [facility] Last Infusion: 12/12/18 20:35 Dose: Infused Insulin Aspart (Novolog) 1 - 9 unit SUBQ 0800,1200,1700,2100 [facility]; Protocol Last Admin: 12/13/18 08:27 Dose: Not Given Insulin Glargine (Lantus Solostar) 30 unit SUBQ QPM [facility] Last Admin: 12/12/18 20:59 Dose: 30 unit Levothyroxine Sodium (Synthroid) 75 mcg PO QDAC [facility] Last Admin: 12/13/18 06:22 Dose: 75 mcg Lisinopril (Zestril) 20 mg PO DAILY [facility] Ondansetron HCl (Zofran Inj) 4 mg IVP Q6HR PRN PRN Reason: Nausea / Vomiting Ondansetron HCl (Zofran Odt) 4 mg TL Q6HR PRN PRN Reason: Nausea / Vomiting Oxycodone HCl (Roxicodone) 5 mg PO Q4HR PRN PRN Reason: Pain 5 to 7 Phytonadione (Vitamin K (Adult)) 10 mg PO ONCE ONE Stop: 12/13/18 10:35 Polyethylene Glycol (Miralax) 17 gm PO DAILY [facility] Last Admin: 12/13/18 08:28 Dose: Not Given Prednisone (Deltasone) 20 mg PO DAILY [facility] Saccharomyces Boulardii (Florastor) 250 mg PO BIDWM [facility] Last Admin: 12/13/18 08:27 Dose: 250 mg Sodium Chloride (Normal Saline Flush 0.9%) 10 ml IVP PRN PRN PRN Reason: NEEDED PER PROVIDER ORDERS Sodium Chloride (Normal Saline Flush 0.9%) 10 ml IVP 0100,0900,1700 [facility] Last Admin: 12/13/18 08:28 Dose: Not Given Furosemide 20 mg PO DAILY 02/07/14 Levothyroxine [Synthroid] 75 mcg PO DAILY 02/07/14 Lisinopril 20 mg PO DAILY 02/07/14 Omeprazole [PriLOSEC] 20 mg PO BID 02/07/14 Simvastatin 30 mg PO QPM 02/07/14 Warfarin Sodium [Coumadin] 1 mg PO WETHFRSA 02/07/14 glipiZIDE [Glucotrol] 5 mg PO DAILY 02/07/14 Carvedilol 25 mg PO BID 09/14/17 Cetirizine [ZyrTEC] 10 mg PO DAILY 12/12/18 Glipizide 10 mg PO DAILY PM 12/12/18 Insulin Glargine [Lantus Solostar] 34 units SUBQ DAILY PM 12/12/18 Warfarin [Coumadin] 1.5 mg PO SUMO 12/12/18 predniSONE [Prednisone] 20 mg PO DAILY MDD 5 DAY THERAPY ONLY; FOR GOUT 12/12/18 Objective - Vital Signs/Intake & Output Reviewed Vital Signs: Yes Vital Signs: Vital Signs x48h Temp Pulse Pulse Pulse Pulse Resp BP 12/13/18 10:10 85 69 200/88 H 12/13/18 08:00 36.8 C 71 15 12/13/18 07:33 82 16 12/13/18 05:52 12/13/18 04:37 83 12/13/18 04:32 36.6 C 74 20 BP BP BP Pulse Ox 07/24/19 10:10 176/78 H 12/13/18 08:00 183/77 H 95 12/13/18 07:33 12/13/18 05:52 176/82 H 12/13/18 04:37 198/76 H 96 12/13/18 04:32 100 Intake & Output: Intake & Output 12/10/18 12/11/18 12/12/18 12/13/18 23:59 23:59 23:59 23:59 Intake Total 1050 1500 Output Total 600 Balance 450 1500 - Objective General Appearance: positive: No acute distress, Alert, Other (Short statured morbidly obese elderly female who is sitting upright in the back, eating breakfast, feeling fatigued but not in any distress.) Eyes Bilateral: positive: PERRL ENT: positive: Pharynx nml Neck: positive: No JVD. negative: Stiff neck, Carotid bruit Respiratory: positive: Chest non-tender, No respiratory distress, Rales, Other (Very diminished at bases) Cardiovascular: positive: Regular rate & rhythm, Systolic murmur. negative: Gallop/S4, Friction rub Abdomen: positive: Non-tender, No organomegaly, Nml bowel sounds, No distention Skin: positive: Warm, Dry, Pallor Extremities: positive: Non-tender, Full ROM, Pedal edema (Less than 1+ both feet, pitting) Neurologic/Psychiatric: positive: CN's nml (2-12), Motor nml, Sensation nml, Disoriented to time - Lab Results Fish Bones: 12/13/18 04:40 12/13/18 04:40 Other Labs: Lab Results x24hrs 12/13/18 12/13/18 12/13/18 Range/Units 04:40 04:40 04:40 WBC 10.3 (4.8-10.8) x10^3/uL RBC 3.80 L (4.20-5.40) 10^6/uL Hgb 10.0 L (12.0-16.0) g/dL Hct 32.7 L (37.0-47.0) % MCV 86.1 (81.0-99.0) fL MCH 26.3 L (27.0-31.0) pg MCHC 30.6 L (32.0-36.0) g/dL RDW 14.6 (12.0-15.0) % Plt Count 212 (130-450) 10^3/uL MPV 11.1 H (7.9-10.8) fL Neut # (Auto) 8.2 H (1.5-6.6) 10^3/uL Lymph # (Auto) 1.0 L (1.5-3.5) 10^3/uL [place] # (Auto) 0.9 (0.0-1.0) 10^3/uL Eos # (Auto) 0.1 (0.0-0.7) 10^3/uL Baso # (Auto) 0.0 (0.0-0.1) 10^3/uL Absolute Nucleated RBC 0.00 x10^3/uL Nucleated RBC % 0.0 /100WBC PT 26.2 H (9.9-12.6) secs INR 2.3 H (0.8-1.2) Sodium 142 (135-145) mmol/L Potassium 3.6 (3.5-5.0) mmol/L Chloride 107 (101-111) mmol/L Carbon Dioxide 26 (21-32) mmol/L Anion Gap 9.0 (6-13) BUN 16 (6-20) mg/dL Creatinine 0.9 (0.4-1.0) mg/dL Estimated GFR (MDRD) 60 L (>89) Glucose 73 (70-100) mg/dL POC Whole Bld Glucose (70 - 100) mg/dL Glycated Hemoglobin (4.6-6.2) % Estim Average Glucose (70-100) Lactic Acid (0.5-2.2) mmol/L Calcium 9.2 (8.5-10.3) mg/dL B-Natriuretic Peptide (5-100) pg/mL 12/12/18 12/12/18 12/12/18 Range/Units 20:46 16:55 16:29 WBC (4.8-10.8) x10^3/uL RBC (4.20-5.40) 10^6/uL Hgb (12.0-16.0) g/dL Hct (37.0-47.0) % MCV (81.0-99.0) fL MCH (27.0-31.0) pg MCHC (32.0-36.0) g/dL RDW (12.0-15.0) % Plt Count (130-450) 10^3/uL MPV (7.9-10.8) fL Neut # (Auto) (1.5-6.6) 10^3/uL Lymph # (Auto) (1.5-3.5) 10^3/uL [place] # (Auto) (0.0-1.0) 10^3/uL Eos # (Auto) (0.0-0.7) 10^3/uL Baso # (Auto) (0.0-0.1) 10^3/uL Absolute Nucleated RBC x10^3/uL Nucleated RBC % /100WBC PT (9.9-12.6) secs INR (0.8-1.2) Sodium (135-145) mmol/L Potassium (3.5-5.0) mmol/L Chloride (101-111) mmol/L Carbon Dioxide (21-32) mmol/L Anion Gap (6-13) BUN (6-20) mg/dL Creatinine (0.4-1.0) mg/dL Estimated GFR (MDRD) (>89) Glucose (70-100) mg/dL POC Whole Bld Glucose 134 H 92 63 L (70 - 100) mg/dL Glycated Hemoglobin (4.6-6.2) % Estim Average Glucose (70-100) Lactic Acid (0.5-2.2) mmol/L Calcium (8.5-10.3) mg/dL B-Natriuretic Peptide (5-100) pg/mL 12/12/18 12/12/18 12/12/18 Range/Units 12:57 12:40 10:18 WBC (4.8-10.8) x10^3/uL RBC (4.20-5.40) 10^6/uL Hgb (12.0-16.0) g/dL Hct (37.0-47.0) % MCV (81.0-99.0) fL MCH (27.0-31.0) pg MCHC (32.0-36.0) g/dL RDW (12.0-15.0) % Plt Count (130-450) 10^3/uL MPV (7.9-10.8) fL Neut # (Auto) (1.5-6.6) 10^3/uL Lymph # (Auto) (1.5-3.5) 10^3/uL [place]s # (Auto) (0.0-1.0) 10^3/uL Eos # (Auto) (0.0-0.7) 10^3/uL Baso # (Auto) (0.0-0.1) 10^3/uL Absolute Nucleated RBC x10^3/uL Nucleated RBC % /100WBC PT (9.9-12.6) secs INR (0.8-1.2) Sodium (135-145) mmol/L Potassium (3.5-5.0) mmol/L Chloride (101-111) mmol/L Carbon Dioxide (21-32) mmol/L Anion Gap (6-13) BUN (6-20) mg/dL Creatinine (0.4-1.0) mg/dL Estimated GFR (MDRD) (>89) Glucose (70-100) mg/dL POC Whole Bld Glucose (70 - 100) mg/dL Glycated Hemoglobin 7.7 H (4.6-6.2) % Estim Average Glucose 174 H (70-100) Lactic Acid 1.7 (0.5-2.2) mmol/L Calcium (8.5-10.3) mg/dL B-Natriuretic Peptide 365 H (5-100) pg/mL 12/12/18 Range/Units 10:18 WBC (4.8-10.8) x10^3/uL RBC (4.20-5.40) 10^6/uL Hgb (12.0-16.0) g/dL Hct (37.0-47.0) % MCV (81.0-99.0) fL MCH (27.0-31.0) pg MCHC (32.0-36.0) g/dL RDW (12.0-15.0) % Plt Count (130-450) 10^3/uL MPV (7.9-10.8) fL Neut # (Auto) (1.5-6.6) 10^3/uL Lymph # (Auto) (1.5-3.5) 10^3/uL [place] # (Auto) (0.0-1.0) 10^3/uL Eos # (Auto) (0.0-0.7) 10^3/uL Baso # (Auto) (0.0-0.1) 10^3/uL Absolute Nucleated RBC x10^3/uL Nucleated RBC % /100WBC PT 21.7 H (9.9-12.6) secs INR 2.0 H (0.8-1.2) Sodium (135-145) mmol/L Potassium (3.5-5.0) mmol/L Chloride (101-111) mmol/L Carbon Dioxide (21-32) mmol/L Anion Gap (6-13) BUN (6-20) mg/dL Creatinine (0.4-1.0) mg/dL Estimated GFR (MDRD) (>89) Glucose (70-100) mg/dL POC Whole Bld Glucose (70 - 100) mg/dL Glycated Hemoglobin (4.6-6.2) % Estim Average Glucose (70-100) Lactic Acid (0.5-2.2) mmol/L Calcium (8.5-10.3) mg/dL B-Natriuretic Peptide (5-100) pg/mL ABX Reporting Has patient been on IV antibiotics over the past 48 hours?: Yes Assessment/Plan - Problem List (1) Pleural effusion Impression: Elderly female who has a history of chronic diastolic heart failure, chronic ki dney disease, and aortic stenosis who presents with a gradually did not dwindling functional mobility status due to severe fatigue and dyspnea on exertion for the last several months. She was treated as a lingular pneumonia in October. Had resolution on chest x-ray. Return to us with further shortness of breath, cough, and in the emergency room found to have a white cell count, and an x-ray with possible atypical pneumonia. I ordered a CT of the chest last night. I was not quite convinced that she had a pneumonia on the basis of her symptoms nor the appearance of the chest x-ray. CT of the chest confirms that she has moderate bilateral pleural effusions. Her area of compression appears t o be in the fissures were fluid with Pre-Pen and compressed. She has no central areas of CHF. She does not have lobar consolidation or focal infiltrate. As such my suspicion is that she has chronic pleural effusions that are causing her symptomatology. The fever and sensation of pneumonia comes from the atelectasis that I see on CT chest. I have reviewed the CT findings with radiology. Plan: -Try to establish where these pleural effusions are coming from. This woman has aortic stenosis but it was only moderate. So not felt to be CHF. She has had minimal changes of pneumonia so I do not think this is infectious. CT scan has nodules and lymphadenopathy but all could be reactive and not pathologic. -Stop Coumadin, give vitamin K, repeat INR at 1800 tonight -Plan for thoracentesis tomorrow discussed with Dr. Dinh -Continue antibiotics empirically until I prove one way or the other if this is infection -Any leftover fluid will be sent for cytology after I have analyzed LDH/protein, glucose, cell count with differential, Gram stain, and cultures and sensitivity (2) Chronic diastolic heart failure secondary to coronary artery disease Impression: Stop IV fluids. IV lock. Lasix 20 mg IV push twice daily If she improves, this could go in the direction of treating her as chronic systolic failure as the cause of her pleural effusions (3) Uncontrolled type 2 diabetes mellitus with hyperglycemia, with long-term current use of insulin Impression: She became hypoglycemic last night. Came down to 60. She had only eaten applesauce that morning and that was it. Plan: Continue to hold oral hypoglycemics Continue Lantus 30 units p.m. and sliding scale insulin before meals (4) Chronic atrial fibrillation Impression: Rate is controlled. I will have to hold her Coumadin for the thoracentesis. As such we will bridge with Lovenox 100 mg subcu twice daily. Resume Coumadin after thoracentesis. (5) HTN (hypertension) Impression: Received carvedilol and lisinopril yesterday. Blood pressure still high today. Continue those medications and see if Lasix can bring her blood pressure down. Qualifiers: Hypertension type: essential hypertension Qualified Code(s): I10 - Essential (primary) hypertension (6) KAYLA on CPAP Impression: Stable at this time. No change in management. Pulmonary hypertension and echocardiogram in July of this year not severe yet.
[2018-12-13] MEDS: LISINOPRIL 20 MG TABLET PO SCH (12:12)
[2018-12-13] MEDS: predniSONE 20 MG TABLET PO SCH (13:32)
[2018-12-13] MEDS: ENOXAPARIN 100 MG/ML SYRINGE SUBQ SCH ×2 (13:32→21:20)
[2018-12-13] MEDS: FUROSEMIDE 20 MG/2 ML VIAL IVP SCH (14:43)
[2018-12-13] MEDS: ALBUTEROL NEB 2.5 MG/3 ML INH PRN ×2 (15:45→23:36)
[2018-12-13] MEDS: levoFLOXacin 750 MG/150 ML 750 MG/150 ML BAG IV SCH (16:23)
[2018-12-13 18:30] LABS: INR 1.9 (0.8-1.2); PT - PROTHROMBIN TIME 21.5 secs (9.9-12.6)
[2018-12-13] MEDS: INSULIN GLARGINE 300 UNIT/3 ML PEN SUBQ SCH (21:28)
[2018-12-14 05:06] LABS: BASOPHILS % (AUTO) 0.2 %; EOSINOPHILS % (AUTO) 0.2 %; HGB - HEMOGLOBIN 10.1 g/dL (12.0-16.0); LYMPHOCYTES # (AUTO) 1.1 10^3/uL (1.5-3.5); LYMPHOCYTES % (AUTO) 13.7 %; MEAN CORPUSCULAR HGB CONC 32.8 g/dL (32.0-36.0); MEAN CORPUSCULAR VOLUME 85.3 fL (81.0-99.0); MEAN PLATELET VOLUME 11.4 fL (7.9-10.8); MONOCYTES # (AUTO) 0.8 10^3/uL (0.0-1.0); MONOCYTES % (AUTO) 10.1 %; NEUTROPHILS # (AUTO) 6.1 10^3/uL (1.5-6.6); NEUTROPHILS % (AUTO) 75.4 %; PLT - PLATELET COUNT 229 10^3/uL (130-450); RED BLOOD COUNT 3.61 10^6/uL (4.20-5.40); RED CELL DISTRIBUTION WIDTH 14.2 % (12.0-15.0)
[2018-12-14 05:11] LABS: INR 1.6 (0.8-1.2); PT - PROTHROMBIN TIME 18.3 secs (9.9-12.6)
[2018-12-14 05:39] LABS: CALCIUM 9.5 mg/dL (8.5-10.3); CREATININE 0.9 mg/dL (0.4-1.0)
[2018-12-14] MEDS: FUROSEMIDE 20 MG/2 ML VIAL IVP SCH ×2 (06:20→15:58)
[2018-12-14] MEDS: LEVOTHYROXINE 75 MCG TABLET PO SCH (06:20)
[2018-12-14] MEDS: SODIUM CHLORIDE FLUSH 0.9% 10 ML SYRINGE IVP SCH ×3 (06:21→18:12)
[2018-12-14] MEDS ORDERED: POTASSIUM CHLORIDE 20 MEQ TABLET PO ONE (06:25)
[2018-12-14] MEDS: POTASSIUM CHLORIDE 20 MEQ/15 ML UDC PO ONE (07:03)
[2018-12-14] MEDS: CARVEDILOL 12.5 MG TABLET PO SCH ×2 (08:27→21:35)
[2018-12-14] MEDS: INSULIN ASPART 300 UNIT/3 ML PEN SUBQ SCH ×4 (08:27→21:35)
[2018-12-14] MEDS: POLYETHYLENE GLYCOL 3350 17 GM PACKET PO SCH (08:27)
[2018-12-14] MEDS: predniSONE 20 MG TABLET PO SCH (08:27)
[2018-12-14] MEDS: LISINOPRIL 20 MG TABLET PO SCH (08:27)
[2018-12-14] MEDS: SACCHAROMYCES BOULARDII 250 MG CAPSULE PO SCH ×2 (08:27→18:11)
--- NOTE | 2018-12-14 12:25 | PROVIDER PROGRESS NOTE ---
Subjective - Prog Note Date Prog Note Date: 12/14/18 Prog Note Time: 17:24 - Subjective Subjective: had her thoracentesis without difficulty. Current Medications - Current Medications Current Medications: Active Medications Acetaminophen (Tylenol) 650 mg PO Q4HR PRN PRN Reason: Pain 1 to 4 Albuterol () 2.5 mg INH Q4HR PRN PRN Reason: Wheezing Last Admin: 12/13/18 23:36 Dose: 2.5 mg Carvedilol (Coreg) 25 mg PO BID [facility] Last Admin: 12/14/18 08:27 Dose: 25 mg Furosemide (Lasix Inj 20mg Vial) 20 mg IVP BIDDIURETIC [facility] Last Admin: 12/14/18 15:58 Dose: 20 mg Levofloxacin (Levaquin 750 Mg/150 Ml) 750 mg in 150 mls @ 100 mls/hr IV Q24H [facility] Last Infusion: 12/13/18 20:55 Dose: Infused Insulin Aspart (Novolog) 1 - 9 unit SUBQ 0800,1200,1700,2100 [facility]; Protocol Last Admin: 12/14/18 11:38 Dose: Not Given Insulin Glargine (Lantus Solostar) 30 unit SUBQ QPM [facility] Last Admin: 12/13/18 21:28 Dose: 30 unit Levothyroxine Sodium (Synthroid) 75 mcg PO QDAC [facility] Last Admin: 12/14/18 06:20 Dose: 75 mcg Lidocaine/Sodium Bicarbonate (Buffered Lidocaine) 10 ml IU ONCE ONE Stop: 12/14/18 17:10 Last Admin: 12/14/18 17:10 Dose: 10 ml Lisinopril (Zestril) 20 mg PO DAILY [facility] Last Admin: 12/14/18 08:27 Dose: 20 mg Lorazepam (Ativan Inj (Vial)) 0.5 mg IVP Q2H PRN PRN Reason: Anxiety Last Admin: 12/14/18 12:53 Dose: 0.5 mg Ondansetron HCl (Zofran Inj) 4 mg IVP Q6HR PRN PRN Reason: Nausea / Vomiting Ondansetron HCl (Zofran Odt) 4 mg TL Q6HR PRN PRN Reason: Nausea / Vomiting Oxycodone HCl (Roxicodone) 5 mg PO Q4HR PRN PRN Reason: Pain 5 to 7 Polyethylene Glycol (Miralax) 17 gm PO DAILY [facility] Last Admin: 12/14/18 08:27 Dose: Not Given Prednisone (Deltasone) 20 mg PO DAILY [facility] Last Admin: 12/14/18 08:27 Dose: 20 mg Saccharomyces Boulardii (Florastor) 250 mg PO BIDWM [facility] Last Admin: 12/14/18 08:27 Dose: 250 mg Sodium Chloride (Normal Saline Flush 0.9%) 10 ml IVP PRN PRN PRN Reason: NEEDED PER PROVIDER ORDERS Last Admin: 12/14/18 15:58 Dose: 10 ml Sodium Chloride (Normal Saline Flush 0.9%) 10 ml IVP 0100,0900,1700 [facility] Last Admin: 12/14/18 08:27 Dose: 10 ml Furosemide 20 mg PO DAILY 02/07/14 Levothyroxine [Synthroid] 75 mcg PO DAILY 02/07/14 Lisinopril 20 mg PO DAILY 02/07/14 Omeprazole [PriLOSEC] 20 mg PO BID 02/07/14 Simvastatin 30 mg PO QPM 02/07/14 Warfarin Sodium [Coumadin] 1 mg PO TUWETHFRSA 02/07/14 glipiZIDE [Glucotrol] 5 mg PO DAILY 02/07/14 Carvedilol 25 mg PO BID 09/14/17 Cetirizine [ZyrTEC] 10 mg PO DAILY 12/12/18 Glipizide 10 mg PO DAILY PM 12/12/18 Insulin Glargine [Lantus Solostar] 34 units SUBQ DAILY PM 12/12/18 Warfarin [Coumadin] 1.5 mg PO SUMO 12/12/18 predniSONE [Prednisone] 20 mg PO DAILY MDD 5 DAY THERAPY ONLY; FOR GOUT 12/12/18 Objective - Vital Signs/Intake & Output Reviewed Vital Signs: Yes Vital Signs: Vital Signs x48h Temp Pulse Resp BP Pulse Ox 12/14/18 08:00 36.6 C 77 18 217/80 H 98 12/14/18 06:00 16 95 Intake & Output: Intake & Output 12/11/18 12/12/18 12/13/18 12/14/18 23:59 23:59 23:59 23:59 Intake Total 1050 3160.000 Output Total 600 Balance 450 3160.000 - Objective General Appearance: positive: No acute distress, Alert, Other (less fatigued appearing with pinker cheeks and not so vague and out of it) Eyes Bilateral: positive: PERRL ENT: positive: Pharynx nml Neck: positive: No JVD Respiratory: positive: Chest non-tender, Other (diminished at bases). negative: Wheezes, Rales, Rhonchi Cardiovascular: positive: Regular rate & rhythm, Systolic murmur. negative: Gallop/S4, Friction rub Abdomen: positive: Non-tender, No organomegaly, Nml bowel sounds, No distention Skin: positive: Warm, Dry Extremities: positive: Full ROM, No pedal edema Neurologic/Psychiatric: positive: Oriented x3, CN's nml (2-12), Motor nml - Lab Results Fish Bones: 12/14/18 04:20 12/14/18 04:20 Other Labs: Lab Results x24hrs 12/14/18 12/14/18 12/14/18 Range/Units 04:20 04:20 04:20 WBC 8.0 (4.8-10.8) x10^3/uL RBC 3.61 L (4.20-5.40) 10^6/uL Hgb 10.1 L (12.0-16.0) g/dL Hct 30.8 L (37.0-47.0) % MCV 85.3 (81.0-99.0) fL MCH 28.0 (27.0-31.0) pg MCHC 32.8 (32.0-36.0) g/dL RDW 14.2 (12.0-15.0) % Plt Count 229 (130-450) 10^3/uL MPV 11.4 H (7.9-10.8) fL Neut # (Auto) 6.1 (1.5-6.6) 10^3/uL Lymph # (Auto) 1.1 L (1.5-3.5) 10^3/uL [place] # (Auto) 0.8 (0.0-1.0) 10^3/uL Eos # (Auto) 0.0 (0.0-0.7) 10^3/uL Baso # (Auto) 0.0 (0.0-0.1) 10^3/uL Absolute Nucleated RBC 0.00 x10^3/uL Nucleated RBC % 0.0 /100WBC PT 18.3 H (9.9-12.6) secs INR 1.6 H (0.8-1.2) Sodium 141 (135-145) mmol/L Potassium 3.5 (3.5-5.0) mmol/L Chloride 105 (101-111) mmol/L Carbon Dioxide 25 (21-32) mmol/L Anion Gap 11.0 (6-13) BUN 16 (6-20) mg/dL Creatinine 0.9 (0.4-1.0) mg/dL Estimated GFR (MDRD) 60 L (>89) Glucose 103 H (70-100) mg/dL Calcium 9.5 (8.5-10.3) mg/dL 12/13/18 Range/Units 18:09 WBC (4.8-10.8) x10^3/uL RBC (4.20-5.40) 10^6/uL Hgb (12.0-16.0) g/dL Hct (37.0-47.0) % MCV (81.0-99.0) fL MCH (27.0-31.0) pg MCHC (32.0-36.0) g/dL RDW (12.0-15.0) % Plt Count (130-450) 10^3/uL MPV (7.9-10.8) fL Neut # (Auto) (1.5-6.6) 10^3/uL Lymph # (Auto) (1.5-3.5) 10^3/uL [place] # (Auto) (0.0-1.0) 10^3/uL Eos # (Auto) (0.0-0.7) 10^3/uL Baso # (Auto) (0.0-0.1) 10^3/uL Absolute Nucleated RBC x10^3/uL Nucleated RBC % /100WBC PT 21.5 H (9.9-12.6) secs INR 1.9 H (0.8-1.2) Sodium (135-145) mmol/L Potassium (3.5-5.0) mmol/L Chloride (101-111) mmol/L Carbon Dioxide (21-32) mmol/L Anion Gap (6-13) BUN (6-20) mg/dL Creatinine (0.4-1.0) mg/dL Estimated GFR (MDRD) (>89) Glucose (70-100) mg/dL Calcium (8.5-10.3) mg/dL ABX Reporting Has patient been on IV antibiotics over the past 48 hours?: Yes Assessment/Plan - Problem List (1) Pleural effusion Impression: Elderly female who has a history of chronic diastolic heart failure, chronic kidney disease, and aortic stenosis who presents with a gradually did not dwi ndling functional mobility status due to severe fatigue and dyspnea on exertion for the last several months. She was treated as a lingular pneumonia in October. Had resolution on chest x-ray. Return to us with further shortness of breath, cough, and in the emergency room found to have a white cell count, and an x-ray with possible atypical pneumonia. I ordered a CT of the chest 12/12 bc I was not quite convinced that she had a pneumonia on the basis of her symptoms nor the appearance of the chest x-ray. CT of the chest confirms that she has moderate bilateral pleural effusions. Her area of compression appears to be in the fissures were fluid with Pre-Pen and compressed. She has no central areas of CHF. She does not have lobar consolidation or focal infiltrate. As such my suspicion is that she has chronic pleural effusions that are causing her symptomatology. The fever and sensation of pneumonia comes from the atelectasis that I see on CT chest. I have reviewed the CT findings with radiology. Plan: -Try to establish where these pleural effusions are coming from. This woman has aortic stenosis but it was only moderate. This was on an echocardiogram in July 2018. She is seeing her teacher adventure education Dr. Whitmore who feels that her aortic stenosis is mild and does not need any urgent intervention. This was with his most recent follow-up note.So not felt to be CHF As the cause. She has had minimal changes of pneumonia so I do not think this is infectious. CT scan has nodules and lymphadenopathy but all could be reactive and not pathologic. -Stop Coumadin, give vitamin K, repeat INR is 1.9>1.6 this am -Plan for thoracentesis today, discussed with Dr. Dinh -Continue antibiotics empirically until I prove one way or the other if this is infection -Any leftover fluid will be sent for cytology after I have analyzed LDH/protein, glucose, cell count with differential, Gram stain, and cultures and sensitivity -I spoke to her teacher adventure education, Dr. Whitmore. Low-grade possibilities are worsening valve function, worsening grade 2 diastolic dysfunction. He agrees with my diur esis. But he would like an echocardiogram. If she does not improve as an empiric treatment of grade 2 diastolic dysfunction, my next step will be speaking to rheumatology or infectious disease. (2) Chronic diastolic heart failure secondary to coronary artery disease Impression: Stop IV fluids. IV lock. Lasix 20 mg IV push twice daily If she improves, this could go in the direction of treating her as chronic systolic failure as the cause of her pleural effusions (3) Uncontrolled type 2 diabetes mellitus with hyperglycemia, with long-term current use of insulin Impression: She became hypoglycemic 12/12. Came down to 60. She had only eaten applesauce that morning and that was it. Plan: Continue to hold oral hypoglycemics December 13 glucose: 71, 111, 163, 164, 293 December 14: 116, 151 Continue Lantus 30 units p.m. and sliding scale insulin before meals (4) Chronic atrial fibrillation Impression: Rate is controlled. I will have to hold her Coumadin for the thoracentesis. As such we will bridge with Lovenox 100 mg subcu twice daily. Resume Coumadin after thoracentesis. (5) HTN (hypertension) Impression: Received carvedilol and lisinopril 12/12 and blood pressure was still high 12/13. Continue those medications and see if Lasix can bring her blood pressure down. Last night blood pressure down to 179/79. This morning to 17/80. There is a high component of anxiety as she anticipates her thoracentesis.Give Ativan 1 mg. Reassess. If still high, increase medication. Qualifiers: Hypertension type: essential hypertension Qualified Code(s): I10 - Essential (primary) hypertension (6) KAYLA on CPAP Impression: Stable at this time. No change in management. Pulmonary hypertension and echocardiogram in July of this year not severe yet.
[2018-12-14] MEDS ORDERED: BUFFERED LIDOCAINE 10 ML SYRINGE ONE ×2 (12:32→17:16)
[2018-12-14] MEDS ORDERED: LORazepam 2 MG/ML VIAL IVP PRN (12:34)
[2018-12-14] MEDS: SODIUM CHLORIDE FLUSH 0.9% 10 ML SYRINGE IVP PRN ×2 (12:53→15:58)
[2018-12-14 14:52] LABS: BF COLOR YELLOW; BF SOURCE PLEURAL
[2018-12-14 15:25] LABS: CC,BF RBC < 2000 /mm^3; EOSINOPHILS %,BODY FLUID 0 %; LYMPHOCYTES %,BODY FLUID 12; MACROPHAGES %,BODY FLUID 74 %; MONOCYTES %,BODY FLUID 4 %
[2018-12-14 15:26] LABS: BASOPHILS %,BODY FLUID 0 %; IMMATURE %,BF 0; MESOTHELIAL %, BF 4 %
--- NOTE | 2018-12-14 15:55 | Ultrasound Report ---
Reason: new pleural effusions Procedure Date: 12/14/2018 Accession Number: [id number] / [id number] Procedure: US - Thoracentesis Puncture CPT Code: FULL RESULT: EXAM: ULTRASOUND-GUIDED THORACENTESIS EXAM DATE: 12/14/2018 02:17 PM. CLINICAL HISTORY: New pleural effusions. COMPARISON: None. TECHNIQUE: Risks, benefits and alternatives to the procedure were discussed with the patient. All questions answered. Written and verbal consent obtained. Patient was placed in the sitting position and the skin overlying the effusion marked with sonographic guidance. The skin was sterilely prepped and draped, and 1% buffered lidocaine was used for local anesthesia. An 18-gauge valve catheter needle combination was advanced into the pleural space and fluid aspirated. Upon completion, the catheter was removed. FINDINGS: A total of 75 mL of fluid was removed without immediate complication. Patient tolerated procedure well. IMPRESSION: Ultrasound-guided thoracentesis without immediate complications. [facility]
[2018-12-14] MEDS ORDERED: BUFFERED LIDOCAINE 10 ML SYRINGE IU ONE (17:09)
[2018-12-14] MEDS: levoFLOXacin 750 MG/150 ML 750 MG/150 ML BAG IV SCH (18:12)
--- NOTE | 2018-12-14 21:27 | XRAY Report ---
Reason: Post Thoracentesis Procedure Date: 12/14/2018 Accession Number: [id number] / [id number] Procedure: XR - Chest 1 View X-Ray CPT Code: 04887 FULL RESULT: EXAM: CHEST RADIOGRAPHY EXAM DATE: 12/14/2018 08:14 PM. CLINICAL HISTORY: Post Thoracentesis. COMPARISON: CHEST 1 VIEW 12/12/2018 10:42 AM. TECHNIQUE: 1 view. FINDINGS: Lungs/Pleura: There small bilateral pleural effusions. No evidence of lobar infiltrate. No pneumothorax. Mediastinum: There is mild cardiomegaly. There is thoracic aortic calcification. Other: None. IMPRESSION: No evidence of pneumothorax status post thoracentesis. [facility]
[2018-12-14] MEDS: INSULIN GLARGINE 300 UNIT/3 ML PEN SUBQ SCH (21:36)
[2018-12-15] MEDS: SODIUM CHLORIDE FLUSH 0.9% 10 ML SYRINGE IVP SCH ×3 (00:10→18:37)
[2018-12-15 05:06] LABS: BASOPHILS % (AUTO) 0.5 %; EOSINOPHILS # (AUTO) 0.1 10^3/uL (0.0-0.7); EOSINOPHILS % (AUTO) 1.7 %; HGB - HEMOGLOBIN 9.9 g/dL (12.0-16.0); LYMPHOCYTES # (AUTO) 1.7 10^3/uL (1.5-3.5); LYMPHOCYTES % (AUTO) 21.9 %; MEAN CORPUSCULAR HEMOGLOBIN 27.3 pg (27.0-31.0); MEAN CORPUSCULAR HGB CONC 31.5 g/dL (32.0-36.0); MEAN CORPUSCULAR VOLUME 86.7 fL (81.0-99.0); MEAN PLATELET VOLUME 10.9 fL (7.9-10.8); MONOCYTES # (AUTO) 0.9 10^3/uL (0.0-1.0); MONOCYTES % (AUTO) 11.4 %; NEUTROPHILS # (AUTO) 4.9 10^3/uL (1.5-6.6); PLT - PLATELET COUNT 213 10^3/uL (130-450); RED BLOOD COUNT 3.62 10^6/uL (4.20-5.40); RED CELL DISTRIBUTION WIDTH 14.5 % (12.0-15.0); WHITE BLOOD COUNT 7.6 x10^3/uL (4.8-10.8)
[2018-12-15 05:11] LABS: INR 1.3 (0.8-1.2); PT - PROTHROMBIN TIME 14.2 secs (9.9-12.6)
[2018-12-15 05:18] LABS: CALCIUM 9.8 mg/dL (8.5-10.3); CREATININE 1.2 mg/dL (0.4-1.0)
[2018-12-15] MEDS: LEVOTHYROXINE 75 MCG TABLET PO SCH (06:01)
[2018-12-15] MEDS: SODIUM CHLORIDE FLUSH 0.9% 10 ML SYRINGE IVP PRN (06:01)
[2018-12-15] MEDS: FUROSEMIDE 20 MG/2 ML VIAL IVP SCH (06:01)
[2018-12-15] MEDS: INSULIN ASPART 300 UNIT/3 ML PEN SUBQ SCH ×4 (09:13→22:08)
[2018-12-15] MEDS: SACCHAROMYCES BOULARDII 250 MG CAPSULE PO SCH ×2 (09:56→17:03)
[2018-12-15] MEDS: LISINOPRIL 20 MG TABLET PO SCH (09:57)
[2018-12-15] MEDS: predniSONE 20 MG TABLET PO SCH (09:57)
[2018-12-15] MEDS: CARVEDILOL 12.5 MG TABLET PO SCH ×2 (09:57→22:09)
[2018-12-15] MEDS: POLYETHYLENE GLYCOL 3350 17 GM PACKET PO SCH (10:00)
[2018-12-15] MEDS: ALBUTEROL NEB 2.5 MG/3 ML INH PRN ×2 (10:01→14:39)
[2018-12-15] MEDS ORDERED: SODIUM CHLORIDE 0.9% 500 ML IV ONE (10:58)
[2018-12-15] MEDS ORDERED: POTASSIUM CHLORIDE 20 MEQ TABLET PO ONE (10:58)
[2018-12-15] MEDS: POTASSIUM CHLORIDE 20 MEQ/15 ML UDC PO ONE (11:55)
[2018-12-15] MEDS ORDERED: POTASSIUM CHLORIDE 20 MEQ/15 ML UDC PO ONE (12:00)
[2018-12-15] MEDS ORDERED: WARFARIN 1 MG TABLET PO SCH (14:00)
[2018-12-15 15:35] LABS: CREATININE 1.3 mg/dL (0.4-1.0)
[2018-12-15] MEDS: levoFLOXacin 750 MG/150 ML 750 MG/150 ML BAG IV SCH (17:02)
--- NOTE | 2018-12-15 18:05 | PROVIDER PROGRESS NOTE ---
Subjective - Prog Note Date Prog Note Date: 12/15/18 Prog Note Time: 18:00 Objective - Vital Signs/Intake & Output Reviewed Vital Signs: Yes Vital Signs: Vital Signs x48h Temp Pulse Pulse Resp BP Pulse Ox 12/15/18 15:26 36.8 C 87 18 179/67 H 96 12/15/18 14:40 82 16 12/15/18 10:01 63 16 Intake & Output: Intake & Output 12/12/18 12/13/18 12/14/18 12/15/18 23:59 23:59 23:59 23:59 Intake Total 1050 3160.263 400 7464 Output Total 600 400 Balance 450 3160.470 918 5217 - Objective General Appearance: positive: No acute distress, Alert (Her affect is much improved than admission. She is very charming, talkative, much more interactive than when she came in on admission.) Eyes Bilateral: positive: PERRL, EOMI ENT: positive: No signs of dehydration Neck: positive: No JVD. negative: Carotid bruit, Swelling/bruising Respiratory: positive: Chest non-tender, Other (She is diminished at the bases). negative: Wheezes, Rales, Rhonchi Cardiovascular: positive: Regular rate & rhythm, Systolic murmur. negative: Gallop/S4, Friction rub Abdomen: positive: Non-tender, No organomegaly, Nml bowel sounds, No distention, Other (Eating 75 to 100% of her food) Skin: positive: Warm, Dry Extremities: positive: Non-tender, Full ROM Neurologic/Psychiatric: positive: Oriented x3, CN's nml (2-12). negative: Motor nml (Wide-based, slightly ataxic, but able to get up and moved to the bathroom with a walker) - Lab Results Fish Bones: 12/15/18 04:45 12/15/18 15:22 Other Labs: Lab Results x24hrs 12/15/18 12/15/18 12/15/18 Range/Units 15:22 04:45 04:45 WBC (4.8-10.8) x10^3/uL RBC (4.20-5.40) 10^6/uL Hgb (12.0-16.0) g/dL Hct (37.0-47.0) % MCV (81.0-99.0) fL MCH (27.0-31.0) pg MCHC (32.0-36.0) g/dL RDW (12.0-15.0) % Plt Count (130-450) 10^3/uL MPV (7.9-10.8) fL Neut # (Auto) (1.5-6.6) 10^3/uL Lymph # (Auto) (1.5-3.5) 10^3/uL [place] # (Auto) (0.0-1.0) 10^3/uL Eos # (Auto) (0.0-0.7) 10^3/uL Baso # (Auto) (0.0-0.1) 10^3/uL Absolute Nucleated RBC x10^3/uL Nucleated RBC % /100WBC PT (9.9-12.6) secs INR (0.8-1.2) Sodium (135-145) mmol/L Potassium (3.5-5.0) mmol/L Chloride (101-111) mmol/L Carbon Dioxide (21-32) mmol/L Anion Gap (6-13) BUN (6-20) mg/dL Creatinine 1.3 H (0.4-1.0) mg/dL Estimated GFR (MDRD) 39 L (>89) Glucose (70-100) mg/dL Calcium (8.5-10.3) mg/dL Lactate Dehydrogenase 126 (91-225) IU/L B-Natriuretic Peptide 192 H (5-100) pg/mL 12/15/18 12/15/18 12/15/18 Range/Units 04:45 04:45 04:45 WBC 7.6 (4.8-10.8) x10^3/uL RBC 3.62 L (4.20-5.40) 10^6/uL Hgb 9.9 L (12.0-16.0) g/dL Hct 31.4 L (37.0-47.0) % MCV 86.7 (81.0-99.0) fL MCH 27.3 (27.0-31.0) pg MCHC 31.5 L (32.0-36.0) g/dL RDW 14.5 (12.0-15.0) % Plt Count 213 (130-450) 10^3/uL MPV 10.9 H (7.9-10.8) fL Neut # (Auto) 4.9 (1.5-6.6) 10^3/uL Lymph # (Auto) 1.7 (1.5-3.5) 10^3/uL [place] # (Auto) 0.9 (0.0-1.0) 10^3/uL Eos # (Auto) 0.1 (0.0-0.7) 10^3/uL Baso # (Auto) 0.0 (0.0-0.1) 10^3/uL Absolute Nucleated RBC 0.00 x10^3/uL Nucleated RBC % 0.0 /100WBC PT 14.2 H (9.9-12.6) secs INR 1.3 H (0.8-1.2) Sodium 140 (135-145) mmol/L Potassium 3.4 L (3.5-5.0) mmol/L Chloride 101 (101-111) mmol/L Carbon Dioxide 27 (21-32) mmol/L Anion Gap 12.0 (6-13) BUN 23 H (6-20) mg/dL Creatinine 1.2 H (0.4-1.0) mg/dL Estimated GFR (MDRD) 43 L (>89) Glucose 115 H (70-100) mg/dL Calcium 9.8 (8.5-10.3) mg/dL Lactate Dehydrogenase (91-225) IU/L B-Natriuretic Peptide (5-100) pg/mL ABX Reporting Has patient been on IV antibiotics over the past 48 hours?: Yes Assessment/Plan - Problem List (1) Pleural effusion Impression: Elderly female who has a history of chronic diastolic heart failure, chronic kidney disease, and aortic stenosis who presents with a gradually did not dw indling functional mobility status due to severe fatigue and dyspnea on exertion for the last several months. She was treated as a lingular pneumonia in October. Had resolution on chest x-ray. Return to us with further shortness of breath, cough, and in the emergency room found to have a white cell count, and an x-ray with possible atypical pneumonia. I ordered a CT of the chest 12/12 bc I was not quite convinced that she had a pneumonia on the basis of her symptoms nor the appearance of the chest x-ray. CT of the chest confirms that she has moderate bilateral pleural effusions. Her area of compression appears to be in the fissures were fluid with Pre-Pen and compressed. She has no central areas of CHF. She does not have lobar consolidation or focal infiltrate. As such my suspicion is that she has chronic pleural effusions that are causing her symptomatology. The fever and sensation of pneumonia comes from the atelectasis that I see on CT chest. I have reviewed the CT findings with radiology.She underwent a thoracentesis yesterday without any complications. She has not had any chest pain, cough, shortness of breath. I have been diuresing her with Lasix 20 mg IV push twice daily. Unfortunately creatinine is come up today from 0.9-1.2.So for the fluid that we have gotten back indicates no red cells, minimal neutrophils or lymphocytes, macrophages are present. Gram stain is without any bacteria. Chemistry is a send out lab and pending. Plan: -Try to establish where these pleural effusions are coming from. This woman has aortic stenosis but it was only moderate. This was on an echocardiogram in July 2018. She is seeing her staff auditor Dr. Whitmore who feels that her aortic stenosis is mild and does not need any urgent intervention. This was with his most recent follow-up note.So not felt to be CHF As the cause. She has had minimal changes of pneumonia so I do not think this is infectious. CT scan has nodules and lymphadenopathy but all could be reactive and not pathologic. -Stop Coumadin, give vitamin K, repeat INR is 1.9>1.6 . Resume coumadin today. -Thoracentesis yesterday and has done well. -Continue antibiotics empirically until I prove one way or the other if this is infection. Day #4 today. -Any leftover fluid will be sent for cytology after I have analyzed LDH/protein, glucose, cell count with differential, Gram stain, and cultures and sensitivity -I spoke to her staff auditor, Dr. Whitmore. Low-grade possibilities are worsening valve function, worsening grade 2 diastolic dysfunction. He agrees with my diuresis. But he would like an echocardiogram. If she does not improve as an empiric treatment of grade 2 diastolic dysfunction, my next step will be speaking to rheumatology or infectious disease. (2) Chronic diastolic heart failure secondary to coronary artery disease Impression: Stop IV fluids. IV lock. Lasix 20 mg IV push twice daily will stop today since her creat anmol. I then gave her 250 cc plus po water and creat 1.3 this afternoon. She will stay overnight to make sure creat not rising further in the am. (3) Uncontrolled type 2 diabetes mellitus with hyperglycemia, with long-term current use of insulin Impression: She became hypoglycemic 12/12. Came down to 60. She had only eaten applesauce that morning and that was it. Plan: Continue to hold oral hypoglycemics December 13 glucose: 71, 111, 163, 164, 293 December 14: 116, 151, 266, 159, December 15 100, 187, 240 Continue Lantus 30 units p.m. and sliding scale insulin before meals (4) Chronic atrial fibrillation Impression: Rate is controlled. I held her Coumadin for the thoracentesis. As such we will bridge with Lovenox 100 mg subcu twice daily. Resumed Coumadin now that she is after thoracentesis. (5) HTN (hypertension) Impression: Received carvedilol and lisinopril 12/12 and blood pressure was still high 12/13. Continue those medications and see if Lasix can bring her blood pressure down. Last night blood pressure down to 179/79. This morning to 170/80. There is a high component of anxiety as she anticipates her thoracentesis.Give Ativan 1 mg. Reassess. still high in `160's to 170's. Will add Norvasc. Qualifiers: Hypertension type: essential hypertension Qualified Code(s): I10 - Essential (primary) hypertension (6) KAYLA on CPAP Impression: Stable at this time. No change in management. Pulmonary hypertension and echocardiogram in July of this year not severe yet.
[2018-12-15] MEDS ORDERED: glipiZIDE 5 MG TABLET PO SCH (21:00)
[2018-12-15] MEDS: INSULIN GLARGINE 300 UNIT/3 ML PEN SUBQ SCH (22:09)
[2018-12-16] MEDS: SODIUM CHLORIDE FLUSH 0.9% 10 ML SYRINGE IVP SCH ×2 (00:40→10:58)
[2018-12-16] MEDS: LEVOTHYROXINE 75 MCG TABLET PO SCH (06:18)
[2018-12-16] MEDS: INSULIN ASPART 300 UNIT/3 ML PEN SUBQ SCH ×2 (08:16→12:47)
[2018-12-16 08:28] LABS: CALCIUM 10.3 mg/dL (8.5-10.3); CREATININE 1.1 mg/dL (0.4-1.0)
--- NOTE | 2018-12-16 08:50 | Discharge Plan ---
Discharge Plan Problem Reviewed?: Yes Disposition: Home, Self Care Condition: Good Diet: Low Sodium Activity Restrictions: Activity as Tolerated Shower Restrictions: No Driving Restrictions: No Instruction Topics: Levofloxacin injection, Effusion Pleural, Coumadin, Shortness of Breath Control Stress Health Concerns: You came to the hospital because you were coughing and short of breath. You had already been treated for pneumonia in October. You did not seem to be getting better and was seen in the emergency room a couple of times. With this last time you were admitted because your x-ray had suddenly worsened. We have found that you do not have pneumonia. That you have something called pleural effusions which is an accumulation of water/fluid outside of your lungs pressing down. It causes you not to be able to expand her lungs fully, to take a deep breath and you feel short of breath especially be trying to do something. Plan of Treatment: 1. CT scan of the chest confirms that you do not have pneumonia, but a diffuse inflammatory change of your lymph glands, your lung tissue, and the pleural effu adalid outside your lungs. 2. We did a thoracentesis which is a small needle inserted in your chest cavity to remove the fluid. We have sent it off for analysis and so far no infection is seen, the cells inside the fluid are only for inflammation not infection. However, the final analysis for chemistries and cell analysis and protein analysis are pending. 3.Dr. Whitmore, your compounding scaler, does not feel congestive heart failure is the cause of your pleural fluid. But he did want a repeat echocardiogram done to compare to your last one in July. Final results are pending at the time of discharge and he will have to look at that echocardiogram when you next see him. 4. We did give you Lasix to make you urinate and attempt to getting off the fluid. Between the Lasix and the CAT scan dye, your kidney function became slightly worse. You started out at 0.9 creatinine, and went all the way up to 1.3 creatinine. You are now down to 1.[address] to being normal. Please have your primary care provider recheck your BMP to check your kidney function and BNP to check your heart function when you see him in the next 1 to 2 weeks. Care Goals: 1. To establish why you have pleural effusions. Right now we are looking at congestive heart failure versus infection versus liver disease versus autoimmune disease versus malignancy. 2. Follow-up with seeing your primary care provider and Dr. Whitmore. Assessment: Patient has mild memory problems. But she and her daughter acknowledge the above health concerns and care goals and will follow-up. No Smoking: If you smoke, Please STOP! Call for help. Follow-up with: CITNIA BLANCO MD [Primary Care Provider] -
[2018-12-16] MEDS: ALBUTEROL NEB 2.5 MG/3 ML INH PRN (10:42)
[2018-12-16] MEDS: LISINOPRIL 20 MG TABLET PO SCH (10:55)
[2018-12-16] MEDS: SACCHAROMYCES BOULARDII 250 MG CAPSULE PO SCH (10:55)
[2018-12-16] MEDS: CARVEDILOL 12.5 MG TABLET PO SCH (10:56)
[2018-12-16] MEDS: POLYETHYLENE GLYCOL 3350 17 GM PACKET PO SCH (10:57)
[2018-12-16] MEDS: predniSONE 20 MG TABLET PO SCH (10:58)
[2018-12-16 12:42] VITALS: BP 139/57
--- NOTE | 2018-12-16 17:52 | DISCHARGE SUMMARY ---
Physician: Joycelyn Morris MD DATE OF ADMISSION: 12/12/2018 DATE OF DISCHARGE: 12/16/2018 DISCHARGE DIAGNOSES 1. Pleural effusion, unknown etiology. 2. Chronic diastolic heart failure secondary to coronary artery disease. 3. Acute kidney injury secondary to dye and diuresis. 4. Uncontrolled type 2 diabetes mellitus with hyperglycemia, with long-term current use of insulin. 5. Controlled atrial fibrillation, chronic. 6. Hypertension. 7. Obstructive sleep apnea, on CPAP. DISCHARGE MEDICATIONS 1. Carvedilol 25 mg p.o. b.i.d. 2. Zyrtec 10 mg p.o. daily. 3. Lasix 20 mg p.o. daily. 4. Glucotrol 5 mg p.o. daily. 5. Glipizide 10 mg p.o. q.p.m. 6. Lantus 34 units subcutaneous in the morning. 7. Synthroid 75 mcg daily. 8. Lisinopril 20 mg daily. 9. Prilosec 20 mg p.o. b.i.d. 10. Prednisone 20 mg daily, tapering for gout, already completed. 11. Simvastatin 30 mg p.o. q.p.m. 12. Coumadin 1.5 mg on Tuesday and Tuesday and 1 mg every day the rest of the week. PRINCIPAL PROCEDURES 1. Thoracentesis. 2. Blood cultures, negative after 48 hours. 3. Pleural fluid with no organisms seen, chemistry analysis and culture and cytology are pending at the time of this discharge. Please make sure those are reviewed with patient in the office at her [facility] followup appointment. 4. Chest x-ray. Since 10/27/2018, interval development of basilar opacities and right mid-lung opac ities and airway thickening. Consistent with florid atypical pneumonia or resolving non-lobar pneumo jorgito. 5. Chest CT shows moderate bilateral simple water density pleural effusions. Multiple 5 mm and smal ler scattered noncalcified subpleural nodules bilaterally. Minute amount of bronchiectasis involving the inferior segment of the lingula. No endobronchial lesions. Diffuse patchy peripheral subpleura l opacities with some linear stranding towards the robert. No central pulmonary infiltrate. No pneumo thorax, over expanded lungs. HISTORY OF PRESENT ILLNESS: This is an 83-year-old female who is morbidly obese, has hypertension, d iabetes, and has been failing since about 04/2018. Daughter clearly recalls that mom has been more a nd more dyspneic on exertion since the summer of 2017, but noticed a change that was drastic in 05/11 18. At that time, patient's was diagnosed with cancer, and they have had to drive to [facility] many, many times, and it has been very stressful for them. So the daughter att ributed mom's change in status to the fatigue and stress of the travel. Patient and the daughter feliciano cribe a gradual decrease in mobility and endurance. Some of it is from osteoarthritic pain, but a lo t of it is this dyspnea on exertion. Over the last few months, they have seen nephrology because she was found to have new chronic kidney disease, stage 3. Medications needed to be adjusted, and nephr dada felt that she was on one too many medications. It is not specified which one the daughter is t alking about. The creatinine went from 1.5 to 0.9. She has also been diagnosed with moderate aortic stenosis on an echocardiogram in 07/2008 and is followed by Dr. Whitmore. She has recently had new le ft ankle pain and it has become much more achy and painful and does not allow her to ambulate. She w as diagnosed with gout. In addition to dyspnea on exertion, kidney disease, she also seems to have l ost quite a bit of cognitive function. While her daughter still trusts mom to drive, do simple chore s like laundry, make dinner, she has definitely noticed a change in mom's ability to pay attention, p ay bills, and respond quickly to things. Patient feels that she got sick somewhere in July with mehul cohn. She was treated in the office. I think she may be confused and she may be talking about Ricardo e. Chest x-ray 10/23/2018 shows elongated lingular opacity. Treated with Levaquin. A repeat chest x-ray done 10/27/2018 showed hyperinflated lungs with flattened diaphragms and no mention of a lingul ar opacity and it was resolved. She was seen in the emergency room 2 or 3 times for the sensation of cough, chest congestion and shortness of breath, first by Dr. Arellano and then Dr. Feliciano. She was also seen by her primary care provider. Treatment during this time consisted of Levaquin. She devel oped vulvar candidiasis from the [facility] and received fluconazole. Over the last 3-4 days, she feel s like all of that chest congestion, cough and shortness of breath from October is coming back. She is wheezing. She denies fever, hemoptysis. Her chest is so tight she feels like she cannot bring up ph legm that she feels is down there and needs to come up. There has been no change in bowel habits, ab dominal pain, diarrhea. She came to the emergency room with this complaint, where she was afebrile, normal respiratory and pulse rate, severely hypertensive with a blood pressure of 239/101 and O2 satu ration 87%. A chest x-ray showed interval development of bibasilar opacities and right mid-lung opac ities and airway thickening that is interpreted as pneumonia. She is hypoxic, has abnormal chest x-r ay, and her white cell count has gone from 5.4-8.6. HOSPITAL COURSE: In reviewing the history with this patient, my concern was that we were missing an underlying diagnosis that was not necessarily pneumonia. In an effort to make sure she had pneumonia , I ordered a CT of the chest and the CT of the chest confirmed that she does not have pneumonia, but in fact had bilateral pleural effusions. Some of the subpleural changes were associated with atelec tasis. She appears to have subpleural nodular deposits. Differential diagnosis was discussed with t he family and with patient. I talked about congestive heart failure, infection, cirrhosis, cirrhosis /ascites, and malignancy. Thoracentesis was done. Unfortunately, almost all of these labs are send out labs under our new lab agreement. The only thing I was able to obtain as a result before dischar ge was a cell count. She had 258 white cells, less than 2,000 red cells, 6% neutrophils, 12% lymphoc ytes, 4% monocytes; 74% macrophages and 4% mesothelial cells. Pleural fluid chemistry is pending. B marisela fluid Gram stain shows no organisms and no growth to date. As such, in the outpatient setting, s he will need the chemistry analysis completed or reviewed, so that we can review Light's criteria and decide if this is transudative or exudative. I fear that this may be malignancy, and patient has lo st 20 pounds that sometimes she relates to only 14-pound weight loss in the last few months. She was treated empirically for pneumonia while here, if only to complete the workup. However, I do not think she had pneumonia. During her stay, there were no fevers, no elevated white cell count. Of note, blood pressure was occasionally elevated. She was 139 systolic to 175 systolic. I avoided giving her Lisinopril because of her new acute kidney injury after her thoracentesis. I did a CT wit h dye, diuresed her, and did a thoracentesis. Her creatinine started out at 0.9, went as high as 1.3 , and came down to 1.1 by the time of discharge. She can resume her usual Lisinopril in the outpatie nt setting with her other medications. During her stay, she was bridged with Lovenox. Coumadin was discontinued, oral vitamin K given, and Lovenox was substituted. She has resumed her Coumadin. Diabetes mellitus was noted to be uncontrolled, mildly so. A1c was 7.7%. During her stay, she was i n a carb controlled diet and glucose was controlled with us, just not controlled in the preadmission status. Chronic atrial fibrillation was well controlled. Obstructive sleep apnea is noted on her history and she is supposed to be on CPAP. Patient is noncom pliant, has a very dirty tubing and mask. I do not know how much she is using it at home. She is discharged in stable condition. By the time of discharge, she is ambulating in her room, 97% on room air, eating 100% of her food. PHYSICAL EXAMINATION VITAL SIGNS: Temperature is 36.6. Pulse is 79, blood pressure 139/57. GENERAL: She is a medium statured, moderately overweight, elderly woman with a meaghan, meaghan sense of humor. Very affectionate with all staff. She is 5 feet 5 inches tall, weighs 101 kg. She walks with a walker with a slow gait. LUNGS: No increased respiratory effort. Comfortable walking the length of the hallway down to disch arge. Diminished breath sounds at the bases, but no crackles, rhonchi or wheezing. HEART: PMI normally placed, with a slow irregular rate and rhythm. ABDOMEN: Too large to assess for organomegaly because of her obesity, but she has normal bowel sound s. Nontender. EXTREMITIES: She has large tree trunk legs with trace edema around the ankles and calves. PSYCHIATRIC: When she was first admitted, she had quite a bit of psychomotor slowing, slow to respon d, vague staring affect. By the time of discharge, a very engaging talkative personality was emergin g as she felt better. I have reminded her that she needs to follow up with her primary care provider, Dr. Muller. She ne eds to have her pleural effusion etiology worked out. She can follow up with Dr. Whitmore for congesti ve heart failure, but I do not think that is the problem. Cytology cells will be pending that can be reviewed. There have been no essential changes in her medications at discharge. Greater than 30 minutes was spent coordinating discharge. cc: Mustapha Whitmore MD TD: 12/16/2018 16:05
[2018-12-17] MEDS ORDERED: WARFARIN 1 MG TABLET PO SCH (14:00)
== END 2018-12-16 14:15 | disposition home or self-care (01) | DRG 187 ==
LOC: ED 09:17 → MS2 12:23
PROVIDERS: ADMIT Specialist; ATTEND Specialist
DX: J18.9 Pneumonia, unspecified organism (principal); J90 Pleural effusion, not elsewhere classified; I10 Essential (primary) hypertension; E11.9 Type 2 diabetes mellitus without complications; I50.32 Chronic diastolic (congestive) heart failure; N17.9 Acute kidney failure, unspecified; I13.0 Hypertensive heart and chronic kidney disease with heart failure and stage 1 through stage 4 chronic kidney disease, or unspecified chronic kidney disease; T50.1X5A Adverse effect of loop [high-ceiling] diuretics, initial encounter; T50.8X5A Adverse effect of diagnostic agents, initial encounter; Y92.230 Patient room in hospital as the place of occurrence of the external cause; E11.65 Type 2 diabetes mellitus with hyperglycemia; E11.22 Type 2 diabetes mellitus with diabetic chronic kidney disease; N18.3 Chronic kidney disease, stage 3 (moderate); R09.02 Hypoxemia; R59.0 Localized enlarged lymph nodes; R63.4 Abnormal weight loss; I27.20 Pulmonary hypertension, unspecified; I08.0 Rheumatic disorders of both mitral and aortic valves; I48.2 Chronic atrial fibrillation; I25.10 Atherosclerotic heart disease of native coronary artery without angina pectoris; G47.33 Obstructive sleep apnea (adult) (pediatric); E66.01 Morbid (severe) obesity due to excess calories; M19.90 Unspecified osteoarthritis, unspecified site; M10.9 Gout, unspecified; K21.9 Gastro-esophageal reflux disease without esophagitis; E11.40 Type 2 diabetes mellitus with diabetic neuropathy, unspecified; E11.36 Type 2 diabetes mellitus with diabetic cataract; E11.649 Type 2 diabetes mellitus with hypoglycemia without coma; F41.9 Anxiety disorder, unspecified; K76.0 Fatty (change of) liver, not elsewhere classified; E78.5 Hyperlipidemia, unspecified; J30.9 Allergic rhinitis, unspecified; Z68.37 Body mass index [BMI] 37.0-37.9, adult; Z79.4 Long term (current) use of insulin; Z79.899 Other long term (current) drug therapy; Z79.01 Long term (current) use of anticoagulants; Z91.19 Patient's noncompliance with other medical treatment and regimen; Z63.79 Other stressful life events affecting family and household; Z80.1 Family history of malignant neoplasm of trachea, bronchus and lung; Z91.81 History of falling; Z88.1 Allergy status to other antibiotic agents
CPT/HCPCS: 32555; 36415; 71045; 71260; 80048; 80053; 81599; 82565; 83036; 83605; 83615; 83690; 83880; 85025; 85610; 87040; 87070; 87205; 89051; 93005; 94640; 97110; 97161; 97166; 97530; 97535; 99284; 99285; A9270; J1650; J1815; J2060; J7512; Q9967

== ENCOUNTER 2018-12-28 10:31 | Outpatient (CLI) | payer MEDICARE, OTHER | END 2018-12-28 10:32 | disposition home or self-care (01) | LOC: DI 10:31 | PROVIDERS: ATTEND Family Medicine | DX: I50.30 Unspecified diastolic (congestive) heart failure (principal); I35.0 Nonrheumatic aortic (valve) stenosis | CPT/HCPCS: 93306 ==

== ENCOUNTER 2019-01-05 15:35 | Outpatient (CLI) | payer MEDICARE, OTHER | END 2019-01-05 15:36 | disposition home or self-care (01) | LOC: LAB 15:35 | PROVIDERS: ATTEND Family Medicine | DX: I48.0 Paroxysmal atrial fibrillation (principal) | CPT/HCPCS: 85610 ==

== ENCOUNTER 2019-01-09 08:00 | Outpatient (CLI) | payer MEDICARE, OTHER | END 2019-01-09 23:59 | disposition home or self-care (01) | LOC: LAB.N 08:00 | PROVIDERS: ATTEND Family Medicine | DX: Z79.01 Long term (current) use of anticoagulants (principal) | CPT/HCPCS: 85610 ==

== ENCOUNTER 2019-01-12 10:56 | Outpatient (CLI) | payer MEDICARE, OTHER ==
--- NOTE | 2019-01-13 19:02 | XRAY Report ---
Reason: pleural effusion Procedure Date: 01/12/2019 Accession Number: [id number] / [id number] Procedure: XRN - Chest 2 View X-Ray CPT Code: 21073 FULL RESULT: EXAM: CHEST RADIOGRAPHY EXAM DATE: 01/12/2019 11:20 AM. CLINICAL HISTORY: Pleural effusion. COMPARISON: CHEST 1 VIEW 12/14/2018 8:00 PM CHEST W/ 12/12/2018 6:39 PM. TECHNIQUE: 2 views. FINDINGS: Lungs/Pleura: Interval decrease in size of left pleural effusion. Improved left basilar opacity. No vascular congestion. No pneumothorax. Interstitium is prominent. Mediastinum: Heart size normal. Aorta is mild tortuous. Aortic atherosclerosis. Other: Degenerative changes of the thoracic spine. IMPRESSION: 1. Improved left basilar opacity and left pleural effusion. 2. No new acute disease. RADIA
== END 2019-01-12 10:57 | disposition home or self-care (01) ==
LOC: DI.N 10:56
PROVIDERS: ATTEND Family Medicine
DX: J90 Pleural effusion, not elsewhere classified (principal)
CPT/HCPCS: 71046

== ENCOUNTER 2019-02-19 15:29 | Outpatient (CLI) | payer MEDICARE, OTHER ==
[2019-02-19 16:55] VITALS: BP 148/70
--- NOTE | 2019-02-19 16:55 | SLEEP CARE CONSULTATION ---
Information from patient questionnaire entered by Soha Blue. I have reviewed and concur with the information entered by Soha Blue. This document represents the service I personally performed and the decisions made by me, Shawna Dominguez, RN, MSN, BOX ORDER PERSON. 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 ), Obstructive Sleep Apnea-Hypopnea Syndrome AHI: 7.7 Reason for CPAP/BiPAP follow up: six month Equipment type: CPAP Equipment obtained from: [facility] Mask style: Nasal (Dreamwear) Mask brand: Respironics Backup mask available: No (Patient advised to keep current mask when replaced as a spare. ) Last cushion change: not since set up Prior sleep studies: Yes Year and Where: 2017 [facility] additional information: She has seen graphics specialist after hospitatlization for pneumonia / pleural thorencentis. She was told to get a cleaning device for her CPAP by her providers and nurses at hospital since she was using CPAP when ill. So she has not used her CPAP since hospitalization as the cost of the cleaning device is a bit much for their budget and have been saving for it. 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 Subjective Missed days of use due to: reports: illness, other Patient concerns: reports: dry mouth, nose, throat (slight dry nose and mouth). denies: aerophagia, mask discomfort, air blowing in eyes, mask leak noise, condensation in mask/hose, nasal congestion, epistaxis Observed to snore while using device: No Current pressure setting perceived as: comfortable On therapy, patient: reports: sleeping better, more rested overall. denies: drowsiness while driving Initial [place] Sleepiness Scale score: 15 Current [place] Sleepiness Scale score: 14 (not using CPAP the past month since pneumonia) Allergies and Home Medications Known drug allergies: Yes Home medication list reviewed: Yes Allergy and home medication list: Medication Name (generic/name brand) Strength & Dosage Synthroid 75mcg tab one daily Pravastatin Sodium 40mg tab one daily at bedtime Pataday 0.2% ophthalmic solution One drop each eye once daily prn Lisinopril 20mg tab one daily in the am Coreg 25mg tab one twice daily with meals Furosemide 20mg tab one daily in the am Glipizide 5mg tab one in the am and two in the pm Lantus Solostar 100 unit/ml SQ injector Inject 30 units daily in the pm Coumadin 1mg tablet as directed : Vitamin D3 2000IU tab two daily Claritin 10mg tab one daily Omeprazole Delayed Release 20mg cap one twice daily Allergy List Pen-Vee K Keflex Sulfa Adhesive Tape Penicillin Glucophage Grass Trees Dust Mites Review of Systems Review of systems same as previous: No (hospitalized with pneumonia / pleural thorentisis completed) Physical Exam Blood Pressure: 148/70 Cuff size: wrist Heart Rate: 54 O2 Saturation: 93 Weight: 216 lb 3.2 oz Impression and Plan 1. Obstructive Sleep Apnea-Hypopnea Syndrome, mild, with unknown treatment compliance and unknown apnea control. No compliance data was available at time of appointment as no data available on mode and she forgot her data card. When she uses CPAP, the patient has better sleep quality and is more rested overall. For nasal and oral dryness, she was advised to increase her humidity and reduce heated hose as shown to her and spouse with 5 humidity and 2 heated hose. Printed instructions given to spouse. I advised patient to clean her CPAP as noted on cleaning reference paper with soap and vinegar solution and rinse well. Thus she can restart use of CPAP today If can afford, she can use the cleaning device. She is also to bring in her compliance card to download so I can see if any changes needed. I will call her with results. Patient's apnea severity and rationale for treatment to reduce apnea, improve sleep quality and reduce cardiovascular and cerebrovascular events was reviewed. I also reviewed the benefit of consistent device use of CPAP for hypertension, arrhythmia, diabetes, gastric reflux. * Restart CPAP and continue pressure at 4-5 cmH2O * Bring in card for compliance download * Clean CPAP device as discussed * Notify me if snoring with mask or feeling that the pressure is too much or too little * Attempt to lose weight * Return for follow up in 1-2 months , or sooner if concerns arise * * Addendum: 02-27-19 Staff member Adla reached out to check on compliance data. Informed that patient still unable to bring in compliance card as planned due to spouses needs. I will add to this report later when received. . I spent 100% of this 30 minute visit face to face with the patient with greater than 50% of this was spent time counseling the patient and coordination of care.
== END 2019-02-19 15:30 | disposition home or self-care (01) ==
LOC: SC 15:29
PROVIDERS: ATTEND Nurse Practitioner Family
DX: G47.33 Obstructive sleep apnea (adult) (pediatric) (principal)
CPT/HCPCS: 99214; G0463; 99212

== ENCOUNTER 2019-02-21 17:05 | Outpatient (CLI) | payer MEDICARE, OTHER ==
--- NOTE | 2019-02-22 03:39 | XRAY Report ---
Reason: PLEURAL EFFUSION Procedure Date: 02/21/2019 Accession Number: [id number] / [id number] Procedure: XR - Chest 2 View X-Ray CPT Code: 26904 FULL RESULT: EXAM: CHEST RADIOGRAPHY EXAM DATE: 02/21/2019 05:17 PM. CLINICAL HISTORY: PLEURAL EFFUSION. COMPARISON: CHEST 2 VIEW 01/12/2019 11:25 AM. TECHNIQUE: 2 views. FINDINGS: Lungs/Pleura: Minimal basilar atelectasis. No definite residual effusion. No pneumothorax. Mediastinum: Heart and mediastinal contours are unremarkable. Other: None. IMPRESSION: Minimal basilar atelectasis. RADIA
== END 2019-02-21 17:06 | disposition home or self-care (01) ==
LOC: DI 17:05
PROVIDERS: ATTEND Family Medicine
DX: J90 Pleural effusion, not elsewhere classified (principal)
CPT/HCPCS: 71046

== ENCOUNTER 2019-03-05 14:45 | Outpatient (CLI) | payer MEDICARE, OTHER ==
[2019-03-05 15:24] LABS: ALBUMIN 3.7 g/dL (3.2-5.5); CALCIUM 9.8 mg/dL (8.5-10.3); PHOSPHORUS 3.1 mg/dL (2.5-4.6)
== END 2019-03-05 14:46 | disposition home or self-care (01) ==
LOC: LAB 14:45
PROVIDERS: ATTEND Physician Assistant
DX: N18.3 Chronic kidney disease, stage 3 (moderate) (principal)
CPT/HCPCS: 36415; 80048; 80069; 82570; 83970; 84156; 85014; 85018

== ENCOUNTER 2019-03-06 08:00 | Outpatient (CLI) | payer MEDICARE, OTHER ==
[2019-03-06 14:00] LABS: CREATININE,URINE 55.9 mg/dL; PROTEIN/CREATININE RATIO,URINE 0.3 (<=0.2)
== END 2019-03-06 23:59 | disposition home or self-care (01) ==
LOC: LAB.R 08:00
PROVIDERS: ATTEND Internal Medicine Nephrology
DX: N18.3 Chronic kidney disease, stage 3 (moderate) (principal)
CPT/HCPCS: 82570; 84156

== ENCOUNTER 2019-04-24 14:15 | Outpatient (CLI) | payer MEDICARE, OTHER ==
[2019-04-24 18:37] LABS: HGB - HEMOGLOBIN 11.4 g/dL (12.0-16.0); MEAN CORPUSCULAR HEMOGLOBIN 25.9 pg (27.0-31.0); MEAN CORPUSCULAR HGB CONC 31.1 g/dL (32.0-36.0); MEAN CORPUSCULAR VOLUME 83.2 fL (81.0-99.0); MEAN PLATELET VOLUME 11.4 fL (7.9-10.8); RED BLOOD COUNT 4.4 10^6/uL (4.20-5.40); RED CELL DISTRIBUTION WIDTH 14.1 % (12.0-15.0); WHITE BLOOD COUNT 7.7 x10^3/uL (4.8-10.8)
[2019-04-24 18:46] LABS: CALCIUM 10.2 mg/dL (8.5-10.3)
== END 2019-04-24 23:59 | disposition home or self-care (01) ==
LOC: LAB.N 14:15
PROVIDERS: ATTEND Family Medicine
DX: Z79.01 Long term (current) use of anticoagulants (principal); N18.3 Chronic kidney disease, stage 3 (moderate); I50.9 Heart failure, unspecified
CPT/HCPCS: 36415; 80048; 83880; 85027; 85610

== ENCOUNTER 2019-07-02 12:05 | Emergency (ER) | payer MEDICARE, OTHER ==
[2019-07-02] MEDS ORDERED: ACETAMINOPHEN 325 MG TABLET PO STA ×2 (15:20→19:59)
--- NOTE | 2019-07-02 15:22 | ED Physician Documentation ---
History of Present Illness - Stated complaint Stated Complaint: GLF - BODY PAIN - History obtained from History obtained from: Patient, Family - History of Present Illness Timing: Today Pain level max: 8 Pain level now: 7 - Additonal information Additional information: 84-year-old female presents to the emergency department after a fall in her bathroom today in which she struck her right ribs and right flank on the bathtub. No loss of consciousness. No head, neck pain. No headache. No seizure. Worse with movement and better with rest. Has not taken anything for the pain. She is on warfarin at home. Review of Systems Constitutional: denies: Fever, Chills Nose: denies: Rhinorrhea / runny nose, Congestion Throat: denies: Sore throat GI: denies: Vomiting, Diarrhea Skin: denies: Rash Musculoskeletal: denies: Neck pain, Back pain Neurologic: denies: Headache PD PAST MEDICAL HISTORY - Past Medical History Cardiovascular: Hypertension, High cholesterol, Atrial fibrillation Respiratory: None, Pneumonia Neuro: None Endocrine/Autoimmune: Type 2 diabetes GI: None RIB CUTTER: None : None HEENT: None Psych: Anxiety Musculoskeletal: Osteoarthritis Derm: None - Past Surgical History Past Surgical History: Yes General: Appendectomy /RIB CUTTER: section, Hysterectomy - Present Medications Home Medications: Ambulatory Orders Medication Instructions Recorded Confirmed Furosemide 20 mg PO DAILY 02/07/14 12/12/18 Levothyroxine [Synthroid] 75 mcg PO DAILY 02/07/14 12/12/18 Lisinopril 20 mg PO DAILY 02/07/14 12/12/18 Omeprazole [PriLOSEC] 20 mg PO BID 02/07/14 12/12/18 Simvastatin 30 mg PO QPM 02/07/14 12/12/18 Warfarin Sodium [Coumadin] 1 mg PO TUWETHFRSA 02/07/14 12/12/18 glipiZIDE [Glucotrol] 5 mg PO DAILY 02/07/14 12/12/18 carvediloL [Carvedilol] 25 mg PO BID 09/14/17 12/12/18 Cetirizine [ZyrTEC] 10 mg PO DAILY 12/12/18 12/12/18 Glipizide 10 mg PO DAILY PM 12/12/18 12/12/18 Insulin Glargine [Lantus Solostar] 34 units SUBQ DAILY PM 12/12/18 12/12/18 Warfarin [Coumadin] 1.5 mg PO SUMO 12/12/18 12/12/18 predniSONE [Prednisone] 20 mg PO DAILY MDD 5 DAY THERAPY 12/12/18 12/12/18 ONLY; FOR GOUT - Allergies Allergies/Adverse Reactions: Allergies Allergy/AdvReac Type Severity Reaction Status Date / Time cephalexin monohydrate * Allergy Rash Verified 12/12/18 09:31 [From Keflex] Latex, Natural Rubber Allergy Unknown Verified 12/12/18 09:31 metformin [From Glucophage] Allergy Unknown Verified 12/12/18 09:31 Penicillins Allergy Itching Verified 12/12/18 09:31 Sulfa (Sulfonamide Allergy Rash Verified 12/12/18 09:31 Antibiotics) - Social History Does the pt smoke?: No Smoking Status: Never smoker Does the pt drink ETOH?: No Does the pt have substance abuse?: No - Immunizations Immunizations are current?: Yes Immunizations: TDAP >10years/unknown - POLST Patient has POLST: No PD ED PE NORMAL - Vitals Vital signs reviewed: Yes - General General: Alert and oriented X 3, No acute distress, Well developed/nourished - HEENT HEENT: PERRL, Moist mucous membranes - Neck Neck: Supple, no meningeal sign - Cardiac Cardiac: RRR, Strong equal pulses - Respiratory Respiratory: No respiratory distress, Clear bilaterally - Abdomen Abdomen: Soft, Non tender, Non distended - Back Back: Other (Minimal midline lumbar spine tenderness. No step-off or deformity. Tender to palpation over the posterior right lower ribs. Also tender on the flank. No bruising. No abdominal tenderness.) - Derm Derm: Warm and dry - Extremities Extremities: No calf tenderness / cord - Neuro Neuro: Alert and oriented X 3 - Psych Psych: Normal mood, Normal affect Results - Vitals Vitals: Vital Signs - 24 hr 07/02/19 07/02/19 07/02/19 12:17 15:30 18:18 Temperature 36.5 C 36.9 C 36.8 C Heart Rate 68 68 73 Respiratory 18 16 18 Rate Blood Pressure 215/79 H 229/100 H 209/86 H O2 Saturation 97 97 97 Oxygen O2 Source Room air - Labs Labs: Laboratory Tests 07/02/19 07/02/19 13:09 16:00 Whole Blood INR 1.6 H Urine Color YELLOW Urine Clarity CLEAR Urine pH 6.0 Ur Specific Mobile 1.025 Urine Protein 100 H Urine Glucose (UA) NEGATIVE Urine Ketones NEGATIVE Urine Occult Blood SMALL H Urine Nitrite NEGATIVE Urine Bilirubin NEGATIVE Urine Urobilinogen 0.2 (NORMAL) Ur Leukocyte Esterase NEGATIVE Urine RBC 0-5 Urine WBC 0-3 Ur Squamous Epith Cells NONE SEEN Urine Bacteria None Seen Ur Microscopic Review INDICATED Urine Culture Comments NOT INDICATED - Rads (name of study) head CT Radiology: Prelim report reviewed, EMP read contemporaneously, See rad report (No acute intracranial abnormality) T spine CT Radiology: Prelim report reviewed, EMP read contemporaneously, See rad report L spine CT Radiology: Prelim report reviewed, EMP read contemporaneously, See rad report L spine xray Radiology: Prelim report reviewed, EMP read contemporaneously, See rad report Ribs w/ cxr Radiology: Prelim report reviewed, EMP read contemporaneously, See rad report PD MEDICAL DECISION MAKING - ED course Complexity details: reviewed results, re-evaluated patient, considered differential, d/w patient, d/w family ED course: Patient is status post fall today. She has T11 and T12 fractures that are stable. She has right-sided L1, L2, L3 transverse process fractures. She also has a T12 rib fracture. She was placed in a TLSO brace and is ambulating very well with a walker. She declines anything stronger for pain than Tylenol. We will have her hold her warfarin for the next few days. Patient also has a mass in her liver. Recommend that she have an MRI of the liver for this. This was shared with the patient and her children. Patient and family counseled regarding signs and symptoms for which I believe and urgent re-evaluation would be necessary. Patient with good understanding of and agreement to plan and is comfortable going home at this time This document was made in part using voice recognition software. While efforts are made to proofread this document, sound alike and grammatical errors may occur. Departure - Departure Disposition: 01 Home, Self Care Clinical Impression: Liver mass T11 vertebral fracture Qualifiers: Encounter type: initial encounter Fracture type: closed Fracture morphology: unspecified fracture morphology Qualified Code(s): S22.089A - Unspecified fracture of T11-T12 vertebra, initial encounter for closed fracture T12 vertebral fracture Qualifiers: Encounter type: initial encounter Fracture type: closed Fracture morphology: unspecified fracture morphology Qualified Code(s): S22.089A - Unspecified fracture of T11-T12 vertebra, initial encounter for closed fracture Lumbar transverse process fracture Qualifiers: Encounter type: initial encounter Fracture type: closed Qualified Code(s): S32.009A - Unspecified fracture of unspecified lumbar vertebra, initial encounter for closed fracture Rib fracture Qualifiers: Encounter type: initial encounter Rib fracture type: single rib Fracture type: closed Laterality: right Qualified Code(s): S22.31XA - Fracture of one rib, right side, initial encounter for closed fracture Condition: Good Instructions: ED Fx Comp Vertebral Follow-Up: CINTIA BLNACO MD [Primary Care Provider] - Within 1 week Comments: Return if you worsen. Continue tylenol at home. Hold your warfarin for 3 days. Wear the brace for comfort. There is a new 5.3 x 6.3 x 4 cm mass within the right lobe of the liver. Both benign and malignant etiologies should be considered. Recommend nonemergent liver mass protocol MRI for further evaluation.
--- NOTE | 2019-07-02 15:58 | XRAY Report ---
Reason: fall, pain Procedure Date: 07/02/2019 Accession Number: [id number] / [id number] Procedure: XR - Ribs w/PA Chest RT CPT Code: Final Report FULL RESULT: EXAM: RIGHT RIB RADIOGRAPHY EXAM DATE: 07/02/2019 03:46 PM. CLINICAL HISTORY: Fall, pain. COMPARISON: CHEST 2 VIEW 02/21/2019 5:11 PM. TECHNIQUE: 1 view of the chest and 2 views of the ribs. FINDINGS: Bones: Normal. No fracture or bone lesion. Lungs: No focal opacities. No pneumothorax. No pleural effusions. Mediastinum: Heart and mediastinal contours are unremarkable. Other: None. IMPRESSION: Normal chest and rib radiography. RADIA
--- NOTE | 2019-07-02 16:02 | XRAY Report ---
Reason: fall, pain Procedure Date: 07/02/2019 Accession Number: [id number] / [id number] Procedure: XR - Lumbar Spine 2 View CPT Code: Final Report FULL RESULT: EXAM: LUMBOSACRAL SPINE RADIOGRAPHY EXAM DATE: 07/02/2019 03:46 PM. CLINICAL HISTORY: Fall, pain. COMPARISONS: XR LUMBAR SPINE 2 OR 3 VIEWS 01/13/2008 10:15 AM. TECHNIQUE: 3 views. FINDINGS: Alignment: No spondylolisthesis or scoliosis. Bones: Five vrx-rif-jxfhskt lumbar vertebral bodies are present. Osteopenia noted. Apparent new compression deformity seen at T12 with approximately 20% anterior height loss. No other fracture lines are evident. Disks: Multilevel moderate disk height loss with prominent disk osteophytes. Facets: Multilevel degenerative facet hypertrophy seen. Sacroiliac Joints: Unremarkable. Soft Tissues: Normal. The visualized bowel gas pattern is normal. IMPRESSION: 1. New compression deformity of T12 is seen without evident fracture line that could reflect an age indeterminate compression fracture. Correlation with focal pain/tenderness at that location is recommended. MRI could be obtained for further evaluation if clinically indicated. 2. No other fracture seen in the visualized lumbar spine. Multilevel degenerative changes noted. RADIA
[2019-07-02 16:11] LABS: BILIRUBIN,URINE NEGATIVE (NEGATIVE); GLUCOSE, URINE (UA) NEGATIVE (NEGATIVE); KETONES,URINE (UA) NEGATIVE (NEGATIVE); LEUKOCYTE ESTERASE, URINE NEGATIVE (NEGATIVE); NITRITE,URINE NEGATIVE (NEGATIVE); OCCULT BLOOD,URINE SMALL (NEGATIVE); PROTEIN,URINE 100 mg/dL (NEGATIVE); UROBILINOGEN,URINE 0.2 (NORMAL) E.U./dL (NORMAL)
[2019-07-02 16:15] LABS: CLARITY,URINE CLEAR (CLEAR)
[2019-07-02 16:24] LABS: BACTERIA,URINE None Seen /HPF (None Seen); RBC,URINE 0-5 /HPF (0-5); SQUAMOUS EPITHELIAL CELL,UR NONE SEEN (<= Few)
--- NOTE | 2019-07-02 18:56 | CT Report ---
Reason: fall, back pain Procedure Date: 07/02/2019 Accession Number: [id number] / [id number] Procedure: CT - THORACIC SPINE WO CPT Code: Final Report FULL RESULT: EXAM: CT THORACIC SPINE WITHOUT CONTRAST EXAM DATE: 07/02/2019 06:07 PM. CLINICAL HISTORY: Fall, back pain. COMPARISONS: LUMBAR SPINE W/O 07/02/2019 5:57 PM IVP 09/11/2015 1:28 PM ABDOMEN/PELVIS W/ 07/10/2015 12:09 PM. TECHNIQUE: Thin-section axial images were acquired of the thoracic spine from C7 to L1 without contrast. Post-processing: Coronal and sagittal reformats. Other: None. In accordance with CT protocol optimization, one or more of the following dose reduction techniques were utilized for this exam: automated exposure control, adjustment of mA and/or KV based on patient size, or use of iterative reconstructive technique. FINDINGS: Alignment: No scoliosis or spondylolisthesis. Bones: There is a slightly displaced fracture involving the anterior inferior corner of the T11 vertebra. No other vertebral fracture seen. There is a fracture involving the posterior right 12th rib. Disk Levels/Facets: There are bridging osteophytes at multiple levels from the mid to lower thoracic spine anteriorly. Mild age-related disk space narrowing. There is no significant canal stenosis. Musculature: Normal. No fatty atrophy. Other: There is a vague, 4.7 cm hypodense mass partially visualized in the right hepatic lobe, new since the comparison abdomen CT. IMPRESSION: 1. T11 anterior inferior endplate fracture. No unstable thoracic spine fractures. 2. Posterior right 12th rib fracture. 3. New hypodense 4.7 cm right hepatic lobe mass, incompletely visualized on this exam. Contrast enhanced abdomen CT recommended for further characterization. RADIA
--- NOTE | 2019-07-02 19:07 | CT Report ---
Reason: fall, back pain Procedure Date: 07/02/2019 Accession Number: [id number] / [id number] Procedure: CT - LUMBAR SPINE WO CPT Code: Final Report FULL RESULT: EXAM: CT LUMBAR SPINE WITHOUT CONTRAST EXAM DATE: 07/02/2019 06:07 PM. CLINICAL HISTORY: Fall, back pain. COMPARISONS: LUMBAR SPINE W/O 04/03/2015 11:01 AM CHEST W12/12/2018 6:39 PM IVP 09/11/2015 1:28 PM ABDOMEN/PELVIS W07/10/2015 12:09 PM. TECHNIQUE: Thin-section axial images were acquired of the lumbar spine from T12 to S1 without contrast. Post-processing: Coronal and sagittal reformats. Other: None. In accordance with CT protocol optimization, one or more of the following dose reduction techniques were utilized for this exam: automated exposure control, adjustment of mA and/or KV based on patient size, or use of iterative reconstructive technique. FINDINGS: Alignment: There is a 3 mm retrolisthesis L3 on L4 and 3 mm anterolisthesis L4 on L5. Bones: Five ige-mlr-mculqyp lumbar vertebral bodies are present. The bones are osteopenic. Acute minimally displaced fractures of the right transverse processes of L1, L2, and L3. Acute compression fractures of the T11 and T12 vertebral bodies without significant vertebral body height loss. For further evaluation of the thoracic spine, please see separately dictated CT thoracic spine of the same date. Disks/Facets: Multilevel disk height loss and facet joint arthropathy. Disk height loss is most pronounced at L3-L4 where it is moderate in severity. There is also vacuum disk phenomenon at this level. There is also multilevel facet joint arthropathy which is most pronounced at L4-L5 and L5-S1. There appear to be disk bulges at L2-L3, L3-L4, L4-L5 and L5-S1. There appears to be severe central canal stenosis at L3-L4 and moderate central canal stenosis at L2-L3. There is severe bilateral neuroforaminal stenosis at L3-L4 and L4-L5. Moderate/severe left neuroforaminal stenosis and moderate right neuroforaminal stenosis at L5-S1. There is severe right neuroforaminal stenosis at L2-L3. No significant neural femoral stenosis at the remaining levels. Other: There is a new 5.3 x 6.3 x 4 cm mass within the right lobe of the liver. Mild atherosclerosis of the abdominal aorta. Colonic diverticulosis without obvious evidence of acute diverticulitis. There is a trace amount of free for the pelvis. Status post hysterectomy. IMPRESSION: 1. Acute minimally displaced fractures of the right transverse processes of L1, L2, and L3. 2. Acute compression fractures of the T11 and T12 vertebral bodies without significant vertebral body height loss. 3. There is a new 5.3 x 6.3 x 4 cm mass within the right lobe of the liver. Both benign and malignant etiologies should be considered. Recommend nonemergent liver mass protocol MRI for further evaluation. 4. Advanced multilevel degenerative changes causing varying degrees of neural foraminal and central canal stenosis, as detailed above. RADIA
--- NOTE | 2019-07-02 20:54 | CT Report ---
Reason: fall, head injury Procedure Date: 07/02/2019 Accession Number: [id number] / [id number] Procedure: CT - HEAD WO CPT Code: Final Report FULL RESULT: EXAM: CT HEAD EXAM DATE: 07/02/2019 08:28 PM. CLINICAL HISTORY: Fall, pain. COMPARISON: HEAD W/O 09/14/2017 7:38 PM. TECHNIQUE: Multiaxial CT images were obtained from the foramen magnum to the vertex. Reformats: Sagittal and coronal. IV contrast: None. In accordance with CT protocol optimization, one or more of the following dose reduction techniques were utilized for this exam: automated exposure control, adjustment of mA and/or KV based on patient size, or use of iterative reconstructive technique. FINDINGS: Parenchyma: No intraparenchymal hemorrhage. No evidence of mass, midline shift, or CT findings of acute infarction. Turpin-white differentiation is distinct. Diffuse chronic microangiopathic white matter changes. Extraaxial Spaces: Normal for age. No subdural or epidural collections. Ventricles: The ventricles and cortical sulci are enlarged, consistent with age-related tissue loss. Sinuses and orbits: Imaged paranasal sinuses, orbits, and mastoids show no significant abnormality. Bones: Unremarkable. Other: None. IMPRESSION: Generalized age-related cortical atrophic changes without evidence of acute intracranial abnormality. RADIA
[2019-07-02 21:58] VITALS: BP 177/88
== END 2019-07-02 21:58 | disposition home or self-care (01) ==
LOC: ED 12:05
DX: S22.31XA Fracture of one rib, right side, initial encounter for closed fracture (principal); S22.080A Wedge compression fracture of T11-T12 vertebra, initial encounter for closed fracture; S32.018A Other fracture of first lumbar vertebra, initial encounter for closed fracture; S32.028A Other fracture of second lumbar vertebra, initial encounter for closed fracture; S32.038A Other fracture of third lumbar vertebra, initial encounter for closed fracture; W19.XXXA Unspecified fall, initial encounter; W22.09XA Striking against other stationary object, initial encounter; Y92.002 Bathroom of unspecified non-institutional (private) residence as the place of occurrence of the external cause; I10 Essential (primary) hypertension; R16.0 Hepatomegaly, not elsewhere classified; E11.9 Type 2 diabetes mellitus without complications; Z79.01 Long term (current) use of anticoagulants; Z79.4 Long term (current) use of insulin
CPT/HCPCS: 70450; 71101; 72100; 72128; 72131; 81001; 85610; 99284; A9270; 81003; 87086

== ENCOUNTER 2019-07-05 14:11 | Outpatient (CLI) | payer MEDICARE, OTHER ==
[2019-07-05 19:01] LABS: ALBUMIN 3.6 g/dL (3.2-5.5); CREATININE 1.2 mg/dL (0.4-1.0); TOTAL PROTEIN 7.2 g/dL (6.7-8.2)
== END 2019-07-05 23:59 | disposition home or self-care (01) ==
LOC: LAB.N 14:11
PROVIDERS: ATTEND Family Medicine
DX: R16.0 Hepatomegaly, not elsewhere classified (principal)
CPT/HCPCS: 36415; 80053

== ENCOUNTER 2019-07-05 14:27 | Outpatient (CLI) | payer MEDICARE, OTHER ==
--- NOTE | 2019-07-06 08:42 | XRAY Report ---
Reason: KNEE JOINT PAIN Procedure Date: 07/05/2019 Accession Number: [id number] / [id number] Procedure: XRN - Knee 3 View LT CPT Code: Final Report FULL RESULT: EXAM: LEFT KNEE RADIOGRAPHY, 3 VIEWS EXAM DATE: 07/05/2019 03:04 PM. CLINICAL HISTORY: Left knee joint pain in an 84-year-old female. COMPARISON: KNEE 3 VIEW LT 01/14/2017. KNEE 4 VIEW LT 02/09/2016. TECHNIQUE: AP, lateral and patellofemoral views. FINDINGS: Bones: Minor hypertrophic changes in the tibial spines and patella, stable. No fractures or bone lesions. Joints: Mild to moderate narrowing medial joint compartment, mildly progressive from prior study. Remaining joint spaces well maintained. No subluxations or joint effusion. Soft Tissues: Normal. No soft tissue swelling. IMPRESSION: Mild to moderate osteoarthritis medial joint space, minimally progressive from prior study of 2016. No acute process or posttraumatic abnormality. RADIA
== END 2019-07-05 14:28 | disposition home or self-care (01) ==
LOC: DI.N 14:27
PROVIDERS: ATTEND Family Medicine
DX: M17.12 Unilateral primary osteoarthritis, left knee (principal); R16.0 Hepatomegaly, not elsewhere classified
CPT/HCPCS: 36415; 80053

== ENCOUNTER 2019-08-02 13:00 | Outpatient (CLI) | payer MEDICARE, OTHER ==
[2019-08-02 18:52] LABS: CREATININE 1.1 mg/dL (0.4-1.0)
== END 2019-08-02 23:59 | disposition home or self-care (01) ==
LOC: LAB.N 13:00
PROVIDERS: ATTEND Family Medicine
DX: I12.9 Hypertensive chronic kidney disease with stage 1 through stage 4 chronic kidney disease, or unspecified chronic kidney disease (principal); N18.3 Chronic kidney disease, stage 3 (moderate); N28.9 Disorder of kidney and ureter, unspecified
CPT/HCPCS: 36415; 80048

== ENCOUNTER 2019-08-15 11:07 | Outpatient (CLI) | payer MEDICARE, OTHER ==
[2019-08-15] MEDS ORDERED: IOVERSOL 320 50 ML VIAL ONE (11:24)
[2019-08-15] MEDS ORDERED: IOVERSOL 320 100 ML VIAL IVP ONE ×2 (11:24→14:32)
[2019-08-15] MEDS ORDERED: IOVERSOL 320 50 ML VIAL PO ONE (14:32)
--- NOTE | 2019-08-16 05:42 | CT Report ---
Reason: LIVER MASS Procedure Date: 08/15/2019 Accession Number: [id number] / [id number] Procedure: CT - Abdomen/Pelvis W CPT Code: Final Report FULL RESULT: EXAM: CT LIVER WITHOUT AND WITH CONTRAST AND PELVIC CT WITH CONTRAST EXAM DATE: 08/16/2019. CLINICAL HISTORY: LIVER MASS. COMPARISONS: Chest CT from 08/15/2019, thoracic spine CT from 07/02/2019, chest CT from 12/12/2018, and abdominal CT from 07/10/2015. TECHNIQUE: Routine multiphase liver CT imaging, including imaging through the pelvis in the venous phase. IV contrast: 100 mL Optiray 320. Enteric contrast: Yes. Reconstructions: Coronal and sagittal. In accordance with CT protocol optimization, one or more of the following dose reduction techniques were utilized for this exam: automated exposure control, adjustment of mA and/or KV based on patient size, or use of iterative reconstructive technique. FINDINGS: Lung Bases: Normal. Liver: 4.8 x 4.4 x 0.1 cm mass in the right lobe segment 6 shows early peripheral enhancement and subsequent washout without delayed central filling. The liver is globally enlarged with the longitudinal dimension of the right lobe measuring 19.9 cm. 4 low density lesions appear stable since 2016; the largest measures 7 mm in the right lobe segment 6. Gallbladder/Biliary System: Normal. No ductal dilatation or visualized stones. Other Solid Organs: Normal. No masses or abnormal enhancement. Peritoneal Cavity: 2.7 x 0.9 cm periportal lymph node. Colonic diverticula. Otherwise, the bowel is normal in caliber and contour. No free fluid or free air. No masses or acute inflammatory process. The appendix is not visualized. Pelvic Organs: Normal. The bladder, pelvic bowel loops and pelvic organs are within normal limits. Vasculature: Normal. Bones: Normal. Other: None. IMPRESSION: 1. 4.8 cm mass in segment 6 is suspicious for hepatocellular carcinoma. 2. 2.7 x 0.9 cm periportal lymph node. 3. Hepatomegaly. 4. Colonic diverticulosis. 5. 4 stable low-density liver lesion since 2016, which may reflect cysts or hemangiomas; the largest measures 7 mm. RADIA
--- NOTE | 2019-08-16 05:42 | CT Report ---
Reason: LIVER MASS Procedure Date: 08/15/2019 Accession Number: [id number] / [id number] Procedure: CT - CHEST W CPT Code: Final Report FULL RESULT: EXAM: CT CHEST EXAM DATE:08/15/2019 CLINICAL HISTORY: Liver mass. COMPARISONS: CHEST W/ 12/12/2018 6:39 PM. TECHNIQUE: Routine helical CT imaging was performed through the chest. IV contrast: 100 mL Optiray 320. Oral contrast No. Reconstructions: Coronal and sagittal. In accordance with CT protocol optimization, one or more of the following dose reduction techniques were utilized for this exam: automated exposure control, adjustment of mA and/or KV based on patient size, or use of iterative reconstruction technique. FINDINGS: Lungs/Pleura: 9 mm pulmonary nodule in the right middle lobe; image 209 series 3 appears similar in size. Peripheral septal thickening greatest at the bases appears similar. No bronchial thickening, consolidation, or edema. Pulmonary vasculature is normal. No pleural effusion. No pneumothorax. Heart/mediastinum: Enlargement of the left atrium measuring 7 cm in transverse dimension. No pericardial effusion. No lymphadenopathy or mass. Bones: Unremarkable. Visualized Abdomen: Mass in the right lobe of the liver. Other: None. IMPRESSION: 1. Stable 9 mm pulmonary nodule in the right middle lobe. 2. Findings of chronic lung disease with septal thickening. The prior ground-glass opacities and multifocal subsegmental opacities have resolved. 3. Enlargement of the left cardiac atrium. 4. Please see the separate report for a description of the mass in the right lobe of the liver. RADIA
== END 2019-08-15 11:08 | disposition home or self-care (01) ==
LOC: DI 11:07
PROVIDERS: ATTEND Family Medicine
DX: R16.0 Hepatomegaly, not elsewhere classified (principal); K57.30 Diverticulosis of large intestine without perforation or abscess without bleeding; K76.9 Liver disease, unspecified; R91.1 Solitary pulmonary nodule; J98.4 Other disorders of lung; I13.10 Hypertensive heart and chronic kidney disease without heart failure, with stage 1 through stage 4 chronic kidney disease, or unspecified chronic kidney disease; N18.3 Chronic kidney disease, stage 3 (moderate); N28.9 Disorder of kidney and ureter, unspecified
CPT/HCPCS: 71260; 74177; Q9967

== ENCOUNTER 2019-08-21 10:09 | Outpatient (CLI) | payer MEDICARE, OTHER | END 2019-08-21 10:10 | disposition home or self-care (01) | LOC: LAB 10:09 | PROVIDERS: ATTEND Family Medicine | DX: Z79.01 Long term (current) use of anticoagulants (principal) | CPT/HCPCS: 85610 ==

== ENCOUNTER 2019-09-04 08:00 | Outpatient (CLI) | payer MEDICARE, OTHER | END 2019-09-04 23:59 | disposition home or self-care (01) | LOC: LAB.WCP 08:00 | PROVIDERS: ATTEND Family Medicine | DX: I48.0 Paroxysmal atrial fibrillation (principal); Z79.4 Long term (current) use of insulin ==

== ENCOUNTER 2019-09-10 19:20 | Outpatient (CLI) | payer MEDICARE, OTHER | END 2019-09-10 19:21 | disposition home or self-care (01) | LOC: COV 19:20 | PROVIDERS: ATTEND Family Medicine | DX: R50.9 Fever, unspecified (principal); R05 Cough; R06.02 Shortness of breath; R06.2 Wheezing; M79.10 Myalgia, unspecified site; R53.83 Other fatigue | CPT/HCPCS: 81599 ==

== ENCOUNTER 2019-09-14 07:00 | Outpatient (CLI) | payer MEDICARE, OTHER ==
[2019-09-14 12:55] LABS: BASOPHILS # (AUTO) 0.1 10^3/uL (0.0-0.1); BASOPHILS % (AUTO) 0.5 %; EOSINOPHILS # (AUTO) 0.2 10^3/uL (0.0-0.7); HGB - HEMOGLOBIN 11.8 g/dL (12.0-16.0); LYMPHOCYTES % (AUTO) 8.6 %; MEAN CORPUSCULAR HEMOGLOBIN 27.4 pg (27.0-31.0); MEAN CORPUSCULAR HGB CONC 31.6 g/dL (32.0-36.0); MEAN CORPUSCULAR VOLUME 86.8 fL (81.0-99.0); MEAN PLATELET VOLUME 11.1 fL (7.9-10.8); MONOCYTES # (AUTO) 0.8 10^3/uL (0.0-1.0); MONOCYTES % (AUTO) 6.9 %; NEUTROPHILS # (AUTO) 9.3 10^3/uL (1.5-6.6); NEUTROPHILS % (AUTO) 81.5 %; PLT - PLATELET COUNT 267 10^3/uL (130-450); RED BLOOD COUNT 4.31 10^6/uL (4.20-5.40); RED CELL DISTRIBUTION WIDTH 13.5 % (12.0-15.0); WHITE BLOOD COUNT 11.4 x10^3/uL (4.8-10.8)
[2019-09-14 13:42] LABS: ALBUMIN 3.8 g/dL (3.2-5.5); ALBUMIN/GLOBULIN RATIO 0.9 (1.0-2.2); BILIRUBIN,TOTAL 0.8 mg/dL (0.2-1.0); CREATININE 1.3 mg/dL (0.4-1.0); TOTAL PROTEIN 7.9 g/dL (6.7-8.2)
== END 2019-09-14 23:59 | disposition home or self-care (01) ==
LOC: LAB.WCP 07:00
PROVIDERS: ATTEND Family Medicine
DX: R05 Cough (principal); I50.9 Heart failure, unspecified
CPT/HCPCS: 36415; 80053; 83880; 85025

== ENCOUNTER 2019-09-14 10:16 | Outpatient (CLI) | payer MEDICARE, OTHER ==
--- NOTE | 2019-09-15 14:40 | XRAY Report ---
Reason: PRODUCTIVE COUGH, CHF Procedure Date: 09/14/2019 Accession Number: [id number] / [id number] Procedure: WCP - Chest 2 View X-Ray CPT Code: 81983 Final Report FULL RESULT: EXAM: CHEST RADIOGRAPHY EXAM DATE: 09/14/2019 10:16 AM. CLINICAL HISTORY: PRODUCTIVE COUGH, CHF. COMPARISON: RIBS W/PA CHEST RT 07/02/2019 3:16 PM CHEST W/ 08/15/2019 12:35 PM CHEST 2 VIEW 02/21/2019 5:11 PM. TECHNIQUE: 2 views. FINDINGS: Lungs/Pleura: No focal opacities evident. No pleural effusion. No pneumothorax. Normal volumes. Mediastinum: Heart and mediastinal contours are unremarkable. Other: No acute osseous abnormality. There are mild degenerative disk changes of the thoracic spine. IMPRESSION: No acute cardiopulmonary abnormality. No focal pulmonary consolidation. RADIA
== END 2019-09-14 23:59 | disposition home or self-care (01) ==
LOC: DI.WCP 10:16
PROVIDERS: ATTEND Family Medicine
DX: R05 Cough (principal); I50.9 Heart failure, unspecified
CPT/HCPCS: 36415; 71046; 80053; 83880; 85025

== ENCOUNTER 2019-11-04 17:10 | Outpatient (CLI) | payer MEDICARE, OTHER | END 2019-11-04 17:11 | disposition home or self-care (01) | LOC: LAB 17:10 | DX: K76.89 Other specified diseases of liver (principal); Z79.01 Long term (current) use of anticoagulants | CPT/HCPCS: 80053; 82105; 85025; 85610 ==

== ENCOUNTER 2019-11-06 08:46 | Outpatient (CLI) | payer MEDICARE, OTHER ==
--- NOTE | 2019-11-09 09:57 | Nuclear Medicine Report ---
PROCEDURE: Bone Whole Body INDICATIONS: Liver cancer. History of fall. RADIOPHARMACEUTICAL: 26 mCi Tc-99m MDP IV. TECHNIQUE: Delayed whole-body scintigrams were obtained approximately 3-4 hours after intravenous injection of r adiotracer. Anterior and posterior views were acquired from vertex to feet. Additional left and rig ht oblique views of the skull and cervical spine were obtained. COMPARISON: X-ray, Chest, 09/14/2019. CT Chest, 08/15/2019. FINDINGS: There are couple foci of increased activity in the right 10th and 11th ribs, correlating w ith rib fractures seen on CT. No abnormal uptake in skull, sternum, clavicles, bony pelvis and visua lized shafts of the long bones. Increased activity in thoracic and lumbar spine are most likely degen erative in nature; early metastasis could be obscured. There are multiple foci of increased periartic ular activity involving shoulders, sternoclavicular joints, wrists, left knee and both feet, consiste nt with degenerative/arthritic changes. IMPRESSION: 1. No definitive bone scan finding to suggest osseous metastatic disease. 2. Two foci of increased uptake involving the right 10th and 11th ribs, correlating with rib fracture s seen on CT. 3. Degenerative changes as described. Reviewed by: Eddie Hills MD on 11/09/2019 9:56 AM PDT Approved by: Eddie Hills MD on 11/09/2019 9:56 AM PDT Station ID: [id number]
== END 2019-11-06 08:47 | disposition home or self-care (01) ==
LOC: DI 08:46
PROVIDERS: ATTEND Internal Medicine
DX: K76.89 Other specified diseases of liver (principal); R16.0 Hepatomegaly, not elsewhere classified; M15.9 Polyosteoarthritis, unspecified; Z79.01 Long term (current) use of anticoagulants
CPT/HCPCS: 78306; 85610; A9503

== ENCOUNTER 2019-11-17 18:09 | Outpatient (CLI) | payer MEDICARE, OTHER | END 2019-11-17 18:10 | disposition home or self-care (01) | LOC: LAB 18:09 | PROVIDERS: ATTEND Internal Medicine | DX: Z53.9 Procedure and treatment not carried out, unspecified reason (principal) ==

== ENCOUNTER 2019-11-18 15:49 | Outpatient (CLI) | payer MEDICARE, OTHER | END 2019-11-18 15:50 | disposition home or self-care (01) | LOC: LAB 15:49 | PROVIDERS: ATTEND Internal Medicine | DX: Z53.9 Procedure and treatment not carried out, unspecified reason (principal) ==

== ENCOUNTER 2019-11-20 17:19 | Outpatient (CLI) | payer MEDICARE, OTHER | END 2019-11-20 17:20 | disposition home or self-care (01) | LOC: LAB 17:19 | PROVIDERS: ATTEND Family Medicine | DX: Z79.01 Long term (current) use of anticoagulants (principal) | CPT/HCPCS: 36415; 85610 ==

== ENCOUNTER 2019-11-23 15:52 | Outpatient (CLI) | payer MEDICARE, OTHER | END 2019-11-23 15:53 | disposition home or self-care (01) | LOC: LAB 15:52 | PROVIDERS: ATTEND Internal Medicine | DX: Z53.9 Procedure and treatment not carried out, unspecified reason (principal) ==

== ENCOUNTER 2019-12-14 11:10 | Outpatient (CLI) | payer MEDICARE, OTHER ==
[2019-12-14 19:08] LABS: CHOL/HDL RATIO 3.1 (<4.4); CHOLESTEROL 197 mg/dL; HDL CHOLESTEROL 63 mg/dL; LDL CHOLESTEROL,CALCULATED 104 mg/dL; LDL/HDL RATIO 1.7 (<4.4); VLDL CHOLESTEROL 30 mg/dL
== END 2019-12-14 23:59 | disposition home or self-care (01) ==
LOC: LAB.WCP 11:10
PROVIDERS: ATTEND Family Medicine
DX: E78.5 Hyperlipidemia, unspecified (principal); E03.9 Hypothyroidism, unspecified
CPT/HCPCS: 36415; 80061; 83721; 84443

== ENCOUNTER 2020-01-09 11:45 | Outpatient (CLI) | payer MEDICARE, OTHER ==
--- NOTE | 2020-01-09 18:06 | CONSULTATION NOTE ---
Palliative Care Follow Up - Referral Referring Provider: Dr. Wilfredo Schulte Time of Visit: [id number] Referral setting: Home Referral Reason: Cholangiocarcinoma/HTN/Atrial fib - Information Sources Records reviewed: Previous records reviewed History/Review of Systems obtained from: Patient Exam limitations: Clinical condition (patient with STM issues) - History of Present Illness Update Brief HPI Update: This is an 84-year-old woman who has intrahepatic cholangiocarcinoma since 07/2019. She had a fall early June in her bathroom with a sustained T11 and T12 fracture, as well as right L1 and L3 transverse fractures and T12 rib fracture and ended up in the ED. On examination unfortunately found a mass in the right lobe of the liver, with final biopsy of liver mass on for adenocarcinoma of the most likely intrahepatic cholangiocarcinoma. She has been struggling with what to do regarding treatment, this was complicated by her experience with her who in March 2019, from complications of cancer treatment. She has declined chemotherapy up to this point, but she did agree to Y 90 radiation. She did receive mapping on 12/28/2019, and completed the procedure on 01/07/2020. I am seeing her in follow-up, she is done fairly well, she had a little GI distress and nausea yesterday, denies any pain or discomfort today. Her groin site is without signs or symptoms of bleeding or infection. She is still on Lovenox for bridging back to her Coumadin. She is quite anxious as her Coumadin prescription/brand-name, is not available. She reports she has done poorly on warfarin previously. She is on it for atrial fib. She also has had some persistent hypertension, and presents with elevated blood pressure again today. She does have some mild cognitive deficits with short-term memory issues, this is been exacerbated by her recent grief as well as her isolation. She has a meaghan daughter who is overseeing her care, she does stay there at night, the patient is lonely during daytime. Patient's past medical history includes anemia, anxiety, aortic stenosis, arthritis, diastolic heart failure, diabetes type 2, GERD, hyperlipidemia, hypothyroidism, KAYLA without CPAP, pulmonary hypertension, renal insufficiency, and atrial fib. Social History - Living Situation Living arrangement: At home Living Situation: Alone Support System: She has a very caring family, but is recently . Her daughter is been staying with her at nights. The daughter herself is fairly stressed trying to track everything, does have her daughter and grand children living with her her at her house. Daughter does work full-time, is trying to help facilitate increased support for patient. Patient does admit to isolation and loneliness. She has long-term been in the community, and has many stories of the "old families", she was one of 8 kids. She is feeling much better now she is past her procedure with decreased anxiety. There is a pending medical palliative care social worker aide referral to help with resource management and anticipatory guidance. Medications/Allergies - Medications Home Medications: Ambulatory Orders Medication Instructions Recorded Confirmed Furosemide 40 mg PO DAILY 02/07/14 12/21/19 Levothyroxine [Synthroid] 75 mcg PO DAILY 02/07/14 12/21/19 Lisinopril 40 mg PO DAILY 02/07/14 12/21/19 Omeprazole [PriLOSEC] 20 mg PO BID 02/07/14 12/21/19 carvediloL [Carvedilol] 25 mg PO BID 09/14/17 12/21/19 Glipizide 5 mg PO TID 12/12/18 12/21/19 Warfarin [Coumadin] 1.5 mg PO DAILY 12/12/18 12/21/19 Lidocaine/Prilocain 2.5% Cream 30 gm TOP DAILY PRN #1 tube 11/20/19 12/21/19 [Emla 2.5% Cream] Ondansetron HCl [Zofran] 8 mg PO BID PRN #30 tablet 11/20/19 12/21/19 Prochlorperazine [Compazine] 10 mg PO Q6H #30 tablet 11/20/19 12/21/19 Cetirizine HCl/Pseudoephedrine 1 tab PO DAILY 11/28/19 12/21/19 [Aller-Mandy D 5-120 mg Tablet] Cholecalciferol [Vitamin D3] 2,000 unit PO BID 11/28/19 12/21/19 Pravastatin [Pravachol] 40 mg PO DAILY 11/28/19 12/21/19 - Allergies Allergies/Adverse Reactions: Allergies Allergy/AdvReac Type Severity Reaction Status Date / Time cephalexin monohydrate * Allergy Rash Verified 11/28/19 15:43 [From Keflex] Latex, Natural Rubber Allergy Unknown Verified 11/28/19 15:43 metformin [From Glucophage] Allergy Unknown Verified 11/28/19 15:43 Penicillins Allergy Itching Verified 11/28/19 15:43 Sulfa (Sulfonamide Allergy Rash Verified 11/28/19 15:43 Antibiotics) tape AdvReac Rash Uncoded 12/21/19 14:05 Review of Systems - Constitutional Constitutional: reports: Fatigue, Weight stable (original wt loss from 225; currently 209). denies: Fever, Chills - Ears, Nose & Throat Ears, Nose & Throat: reports: Postnasal drainage. denies: Mouth lesions - Cardiovascular Cardiovascular: reports: Irregular heart rate, Edema (slight), Exertional dyspnea, Decr. exercise tolerance. denies: Palpitations, Chest pain - Respiratory Respiratory: reports: SOB at rest, SOB with exertion. denies: Cough - Gastrointestinal Gastrointestinal: reports: Reflux/heartburn, Early satiety. denies: Abdominal pain, Abdominal distention, Constipation, Diarrhea, Nausea - Genitourinary Genitourinary: reports: Frequency, Urgency - Musculoskeletal Musculoskeletal: reports: Stiffness, Limited range of motion, Muscle weakness, Assistive devices (has walker) - Integumentary Integumentary: reports: Dryness, Other (brusing from lovenox injections) - Neurological Neurological: reports: General weakness, Memory problems - Psychiatric Psychiatric: reports: Depression, Anxiety - Endocrine Endocrine: reports: Diabetes type 2, Hypothyroidism - Hematologic/Lymphatic Hematologic/Lymphatic: reports: Anemia. denies: Recurrent infections - All Other Systems All Other Systems: reports: Reviewed and negative Physical Exam - Vital Signs Temperature: 96.5 C Pulse Rate: 55 Respiratory Rate: 18 O2 Saturation: 99 (ra @ rest) Blood Pressure: 152/95 - Physical Exam General Appearance: positive: No acute distress, Alert, Anxious Eyes Bilateral: positive: Normal inspection ENT: positive: No signs of dehydration Neck: positive: Trachea midline Cardiovascular: positive: Irregularly irregular, Diastolic murmur Respiratory: positive: No respiratory distress, Breath sounds nml. negative: Wheezes, Rales, Rhonchi Abdomen: positive: Non-tender, Soft, Obese Skin: positive: Pallor, Dryness, Bruising, Wound (from procedure; drsg intact no s/s infection with examination) Extremities: positive: No pedal edema Neurologic/Psychiatric: positive: Oriented x3, Weakness, Depressed mood/affect, Flat affect Palliative Care - POLST Patient has POLST: No Pain: No pain Tiredness/Fatigue: Moderate (4-6) Drowsiness/Sedation: Mild (1-3) (if not stimulated "drifts off") Nausea: None Anorexia: Mild (1-3) Dyspnea: Mild (1-3) Depression: Moderate (4-6) Anxiety: Moderate (4-6) Feelings of wellbeing/Perceived Quality of Life: Fair, Acceptable, Improved Sleep: Sleeps well Constipation: No Performance Status: Patient ambulatory for short distances, does use walker for balance. She has started home health PT, has not had follow-up visit yet, her goal is to be able to ambulate longer distances, and be able to be independent in car transfers. Daughter is providing supervision for bathing, patient is high fall risk. She does have someone checking her frequently, would benefit from [facility]. - Palliative Care Discussion: Patient's biggest worry at this point in time, is actually trying to locate her brand name Coumadin. She is happy her procedure is over, feels like it went well. She is not aware of the follow-up, have left message for daughter. As no pending appointments noted for oncology. She also worries about the strain and stress on her daughter, she has felt quite isolated and overwhelmed with her diagnosis as well as the COVID-19 restrictions. She presents much more relaxed, able to engage and follow conversation today. She is very reflective of her life, and carries many stories from her long-term involvement in community. Results - Lab Results Lab results reviewed: Yes Lab and Imaging Results: Labs from 8 include creatinine 1.13, GFR 46, hematocrit 31.4, hemoglobin 10.2, platelet count 230, WBC 6.6 Impression and Recommendations - Palliative Care Impression: This is a 84-year-old woman who has intrahepatic cholangiocarcinoma since 07/2019. She continues with low symptom burden, has completed her Y 90 treatment this last Tuesday. She is feeling less anxious, more hopeful, and has started with home health PT. Patient does present with persistent hypertension today, does have follow-up with PCP tomorrow. Palliative care continue to provide support and anticipatory guidance. Recommendations/Counseling Done: 1.Intrahepatic cholangiocarcinoma. Patient has received Y 90 treatment, will need ongoing follow-up and monitoring. Of left message with daughter, for plan for follow-up with oncology. Patient does not perceive herself as "sick". Palliative care will continue to follow for anticipatory guidance. 2. Depression. Patient does have persistent depressive symptoms, this is multifactorial including diagnosis of cancer, grief and loss with her and November, isolation regarding Covid19 pandemic. She does have friends and family who are checking on her frequently, this does provide her a source of distraction and quality of life. Palliative care social worker aide to meet with patient as well to provide ongoing support. 3. Hypertension. Patient continues with persistent elevated blood pressure, last visit 156/86, today 152/95. Patient pending appointment with PCP tomorrow. Requested patient get new batteries for blood pressure monitoring, and check daily to be able to follow-up on trend. Reports patient's usual blood pressures are usually in the 120s over 70s. 4. Anti-coag therapy. Patient is managing bridge therapy of Lovenox, last dose tomorrow morning. She does have areas of bruising and subcutaneous pockets of discomfort. She is distressed as was told Coumadin was no longer available. Patient given her GI cancer, and underlying atrial fib, will need continued anti-coag therapy. Patient unable to explain why unable to take warfarin, reports had difficult and horrible reaction. Patient may be a candidate for alternative i.e. Apixaban. She will be seeing Dr. Muller tomorrow, will defer to PCP. 5. Difficulty walking. This is multifactorial, she has initiated home health PT, will follow-up for home safety and strengthening and balancing. 6. Advanced care planning. Patient's D POA is shared with daughter and son, will need copy for chart. We will follow-up with oncology for further prognostic information, goal at this time for patient and family are to focus on quality of life issues, recognizing the seriousness of her illness. Palliative care continue provide anticipatory guidance and support.Medical palliative care social worker aide, will be following up regarding resources and long-term/short-term support needs Time Spent: 55 minutes with greater than 50% of this done in counseling regarding symptom management, follow-up on procedure, psychosocial support, and anticipatory guidance.Reach out of follow-up oncology team for recommended next steps.
== END 2020-01-09 11:46 | disposition home or self-care (01) ==
LOC: PC 11:45
PROVIDERS: ATTEND Nurse Practitioner Adult Health
DX: Z51.5 Encounter for palliative care (principal); G31.84 Mild cognitive impairment of uncertain or unknown etiology; R53.83 Other fatigue; R53.1 Weakness; I10 Essential (primary) hypertension; I48.91 Unspecified atrial fibrillation; F32.9 Major depressive disorder, single episode, unspecified; R26.2 Difficulty in walking, not elsewhere classified; C22.9 Malignant neoplasm of liver, not specified as primary or secondary; Z79.01 Long term (current) use of anticoagulants; Z79.899 Other long term (current) drug therapy; Z74.09 Other reduced mobility; Z63.4 Disappearance and death of family member; Z87.81 Personal history of (healed) traumatic fracture; Z92.3 Personal history of irradiation; Z91.81 History of falling
CPT/HCPCS: 99349

== ENCOUNTER 2020-01-14 11:27 | Outpatient (CLI) | payer MEDICARE, OTHER | END 2020-01-14 11:28 | disposition home or self-care (01) | LOC: LAB 11:27 | PROVIDERS: ATTEND Family Medicine | DX: Z79.01 Long term (current) use of anticoagulants (principal) | CPT/HCPCS: 85610 ==

== ENCOUNTER 2020-01-16 07:00 | Outpatient (CLI) | payer MEDICARE, OTHER ==
[2020-01-16 16:11] LABS: BILIRUBIN,URINE NEGATIVE (NEGATIVE); GLUCOSE, URINE (UA) NEGATIVE (NEGATIVE); KETONES,URINE (UA) NEGATIVE (NEGATIVE); LEUKOCYTE ESTERASE, URINE MODERATE (NEGATIVE); NITRITE,URINE NEGATIVE (NEGATIVE); OCCULT BLOOD,URINE NEGATIVE (NEGATIVE); PH,URINE 5.5 PH (5.0-7.5); PROTEIN,URINE NEGATIVE (NEGATIVE); UROBILINOGEN,URINE 0.2 (NORMAL) E.U./dL (NORMAL)
[2020-01-16 16:30] LABS: BACTERIA,URINE Many /HPF (None Seen); CLARITY,URINE HAZY (CLEAR); SQUAMOUS EPITHELIAL CELL,UR FEW Squamous (<= Few)
== END 2020-01-16 23:59 | disposition home or self-care (01) ==
LOC: LAB.R 07:00
PROVIDERS: ATTEND Family Medicine
DX: R30.0 Dysuria (principal)
CPT/HCPCS: 81001; 87077; 87086; 87181

== ENCOUNTER 2020-01-17 10:13 | Outpatient (CLI) | payer MEDICARE, OTHER | END 2020-01-17 10:14 | disposition home or self-care (01) | LOC: LAB 10:13 | PROVIDERS: ATTEND Family Medicine | DX: Z79.01 Long term (current) use of anticoagulants (principal) | CPT/HCPCS: 85610 ==

== ENCOUNTER 2020-01-21 10:46 | Outpatient (CLI) | payer MEDICARE, OTHER | END 2020-01-21 10:47 | disposition home or self-care (01) | LOC: LAB 10:46 | PROVIDERS: ATTEND Family Medicine | DX: Z79.01 Long term (current) use of anticoagulants (principal) | CPT/HCPCS: 85610 ==

== ENCOUNTER 2020-01-29 14:14 | Outpatient (CLI) | payer MEDICARE, OTHER | END 2020-01-29 14:15 | disposition home or self-care (01) | LOC: LAB 14:14 | PROVIDERS: ATTEND Family Medicine | DX: Z79.01 Long term (current) use of anticoagulants (principal) | CPT/HCPCS: 85610 ==

== ENCOUNTER 2020-02-13 16:06 | Outpatient (CLI) | payer MEDICARE, OTHER | END 2020-02-13 16:07 | disposition home or self-care (01) | LOC: LAB 16:06 | PROVIDERS: ATTEND Family Medicine | DX: Z79.01 Long term (current) use of anticoagulants (principal) | CPT/HCPCS: 85610 ==

== ENCOUNTER 2020-03-12 12:56 | Outpatient (CLI) | payer MEDICARE, OTHER | END 2020-03-12 12:57 | disposition home or self-care (01) | LOC: LAB 12:56 | PROVIDERS: ATTEND Family Medicine | DX: Z79.01 Long term (current) use of anticoagulants (principal) | CPT/HCPCS: 85610 ==

== ENCOUNTER 2020-04-24 08:00 | Outpatient (CLI) | payer MEDICARE, OTHER | END 2020-04-24 23:59 | disposition home or self-care (01) | LOC: LAB.N 08:00 | PROVIDERS: ATTEND Family Medicine | DX: I48.0 Paroxysmal atrial fibrillation (principal); J20.9 Acute bronchitis, unspecified; Z20.828 Contact with and (suspected) exposure to other viral communicable diseases | CPT/HCPCS: 85610; 87275; 87276; U0004 ==

== ENCOUNTER 2020-04-24 15:48 | Outpatient (CLI) | payer MEDICARE, OTHER ==
--- NOTE | 2020-04-24 15:52 | XRAY Report ---
PROCEDURE: Chest 2 View X-Ray INDICATIONS: BRONCHITIS, ACUTE TECHNIQUE: 2 view(s) of the chest. COMPARISON: Chest CT with contrast, 04/09/2020. Chest x-ray 2 views, 09/14/2019. FINDINGS: Surgical changes and devices: There is a Port-A-Cath on the right with the tip projecting to the atri al caval junction. Lungs and pleura: No pleural effusions or pneumothorax. Lungs are clear. Mediastinum: Mediastinal contours are normal. Heart size is normal. Bones and chest wall: No suspicious bony abnormalities. Soft tissues appear unremarkable. IMPRESSION: No acute cardiopulmonary disease. Reviewed by: Eddie Hills MD on 04/24/2020 3:50 PM PST Approved by: Eddie Hills MD on 04/24/2020 3:50 PM PST Station ID: [id number]
== END 2020-04-24 23:59 | disposition home or self-care (01) ==
LOC: DI.N 15:48
PROVIDERS: ATTEND Family Medicine
DX: J20.9 Acute bronchitis, unspecified (principal); I48.0 Paroxysmal atrial fibrillation; Z20.828 Contact with and (suspected) exposure to other viral communicable diseases
CPT/HCPCS: 71046; 85610; 87275; 87276; U0004

== ENCOUNTER 2020-04-29 16:12 | Outpatient (CLI) | payer MEDICARE, OTHER | END 2020-04-29 16:13 | disposition home or self-care (01) | LOC: LAB 16:12 | PROVIDERS: ATTEND Physician Assistant Medical | DX: Z79.01 Long term (current) use of anticoagulants (principal) | CPT/HCPCS: 85610 ==

== ENCOUNTER 2020-05-06 11:04 | Outpatient (CLI) | payer MEDICARE, OTHER | END 2020-05-06 11:05 | disposition home or self-care (01) | LOC: LAB 11:04 | PROVIDERS: ATTEND Physician Assistant Medical | DX: Z79.01 Long term (current) use of anticoagulants (principal) | CPT/HCPCS: 85610 ==

== ENCOUNTER 2020-05-19 16:38 | Outpatient (CLI) | payer MEDICARE, OTHER | END 2020-05-19 16:39 | disposition home or self-care (01) | LOC: LAB 16:38 | PROVIDERS: ATTEND Physician Assistant Medical | DX: Z79.01 Long term (current) use of anticoagulants (principal) | CPT/HCPCS: 85610 ==

== ENCOUNTER 2020-06-03 08:00 | Outpatient (CLI) | payer MEDICARE, OTHER | END 2020-06-03 08:01 | disposition home or self-care (01) | LOC: LAB 08:00 | PROVIDERS: ATTEND Physician Assistant Medical | DX: Z79.01 Long term (current) use of anticoagulants (principal) | CPT/HCPCS: 36415; 85610 ==

== ENCOUNTER 2020-06-04 08:00 | Outpatient (CLI) | payer MEDICARE, OTHER | END 2020-06-04 23:59 | disposition home or self-care (01) | LOC: LAB.N 08:00 | PROVIDERS: ATTEND Physician Assistant Medical | DX: I49.9 Cardiac arrhythmia, unspecified (principal); R41.3 Other amnesia; Z79.01 Long term (current) use of anticoagulants ==

== ENCOUNTER 2020-06-16 19:26 | Outpatient (CLI) | payer MEDICARE, OTHER | END 2020-06-16 19:27 | disposition home or self-care (01) | LOC: LAB 19:26 | PROVIDERS: ATTEND Physician Assistant Medical | DX: Z79.01 Long term (current) use of anticoagulants (principal) | CPT/HCPCS: 85610 ==

== ENCOUNTER 2020-06-23 08:00 | Outpatient (CLI) | payer MEDICARE, OTHER | END 2020-06-23 23:59 | disposition home or self-care (01) | LOC: LAB.WCP 08:00 | PROVIDERS: ATTEND Physician Assistant Medical | DX: Z79.01 Long term (current) use of anticoagulants (principal) ==

== ENCOUNTER 2020-07-09 11:43 | Outpatient (CLI) | payer MEDICARE, OTHER | END 2020-07-09 11:44 | disposition home or self-care (01) | LOC: LAB 11:43 | PROVIDERS: ATTEND Physician Assistant Medical | DX: Z79.01 Long term (current) use of anticoagulants (principal) | CPT/HCPCS: 85610 ==

== ENCOUNTER 2020-07-25 08:48 | Outpatient (CLI) | payer MEDICARE, OTHER ==
[2020-07-25 10:12] LABS: CHOL/HDL RATIO 3.6 (<4.4); CHOLESTEROL 191 mg/dL; HDL CHOLESTEROL 53 mg/dL; LDL CHOLESTEROL,CALCULATED 113 mg/dL; LDL/HDL RATIO 2.1 (<4.4); TRIGLYCERIDES 123 mg/dL; VLDL CHOLESTEROL 25 mg/dL
[2020-07-25 10:18] LABS: THYROID STIMULATING HORMONE 3.48 uIU/mL (0.34-5.60)
[2020-07-25 10:46] LABS: ESTIMATED AVERAGE GLUCOSE 174 mg/dL (70-100); HEMOGLOBIN A1c% 7.7 % (4.27-6.07)
== END 2020-07-25 08:49 | disposition home or self-care (01) ==
LOC: LAB 08:48
PROVIDERS: ATTEND Physician Assistant Medical
DX: E03.9 Hypothyroidism, unspecified (principal); E78.5 Hyperlipidemia, unspecified; E11.65 Type 2 diabetes mellitus with hyperglycemia; Z79.01 Long term (current) use of anticoagulants
CPT/HCPCS: 36415; 80061; 82043; 83036; 83721; 84443; 85610

== ENCOUNTER 2020-07-26 09:00 | Outpatient (CLI) | payer MEDICARE, OTHER ==
[2020-07-26 13:55] LABS: CREATININE,URINE 76.7 mg/dL; MICROALBUM/CREATININE RATIO,UR 10.4 ug/mg (<30.0); MICROALBUMIN,URINE 0.8 mg/dL (0-300.0)
== END 2020-07-26 23:59 | disposition home or self-care (01) ==
LOC: LAB.R 09:00
PROVIDERS: ATTEND Physician Assistant Medical
DX: E11.65 Type 2 diabetes mellitus with hyperglycemia (principal); E78.5 Hyperlipidemia, unspecified
CPT/HCPCS: 82043; 82570

== ENCOUNTER 2020-08-27 17:10 | Outpatient (CLI) | payer MEDICARE, OTHER | END 2020-08-27 17:11 | disposition home or self-care (01) | LOC: LAB 17:10 | PROVIDERS: ATTEND Physician Assistant Medical | DX: Z79.01 Long term (current) use of anticoagulants (principal) | CPT/HCPCS: 85610 ==

== ENCOUNTER 2020-09-30 21:58 | Emergency (ER) | payer MEDICARE, OTHER ==
[2020-09-30 22:39] LABS: BILIRUBIN,URINE NEGATIVE (NEGATIVE); GLUCOSE, URINE (UA) NEGATIVE (NEGATIVE); KETONES,URINE (UA) NEGATIVE (NEGATIVE); LEUKOCYTE ESTERASE, URINE NEGATIVE (NEGATIVE); NITRITE,URINE NEGATIVE (NEGATIVE); OCCULT BLOOD,URINE TRACE-INTA (NEGATIVE); PROTEIN,URINE NEGATIVE (NEGATIVE); UROBILINOGEN,URINE 0.2 (NORMAL) E.U./dL (NORMAL)
--- NOTE | 2020-09-30 22:39 | ED Physician Documentation ---
History of Present Illness - Stated complaint Stated Complaint: WEAKNESS - Chief complaint Chief Complaint: General - History obtained from History obtained from: Patient, Family (daughter (in ED at bedside)) - History of Present Illness Timing: Today Pain level max: 0 Pain level now: 0 Improved by: rest Worsened by: exertion (weakness) Associated symptoms: blood in stool - Additonal information Additional information: patient c/o generalized weakness since this morning. she noted bloody stools earlier today, maroon colored. She says she has been having dark black stools for months but it is unclear if a cause for the black stools was pursued or determined. She says she had IV iron infusion 4 days ago and this was the first time she received IV iron. She takes warfarin for atrial fibrillation. Patient's daughter notes that patient seems to have difficulty with recall and focused conversation today. Review of Systems Constitutional: reports: Fatigue. denies: Fever, Chills, Sweats Eyes: reports: Reviewed and negative Ears: reports: Reviewed and negative Nose: reports: Reviewed and negative Throat: reports: Reviewed and negative Cardiac: reports: Reviewed and negative Respiratory: reports: Reviewed and negative GI: reports: Bloody / black stool. denies: Abdominal Pain, Abdominal Swelling, Nausea, Vomiting, Constipation, Diarrhea, Hematemesis : denies: Dysuria, Frequency Skin: reports: Reviewed and negative Musculoskeletal: reports: Reviewed and negative Neurologic: reports: Generalized weakness. denies: Focal weakness, Numbness, Headache PD PAST MEDICAL HISTORY - Past Medical History Cardiovascular: Hypertension, High cholesterol, Atrial fibrillation (on warfarin; will be bridging with lovenox for procedure) Respiratory: Pneumonia, Shortness of breath Neuro: Other Endocrine/Autoimmune: Type 2 diabetes GI: None LINK CUTTER: None : Incontinence HEENT: None Psych: Anxiety Musculoskeletal: Osteoarthritis Derm: None - Past Surgical History Past Surgical History: Yes General: Appendectomy /LINK CUTTER: section, Hysterectomy, Other - Present Medications Home Medications: Ambulatory Orders Medication Instructions Recorded Confirmed Furosemide 40 mg PO DAILY 02/07/14 08/28/20 Levothyroxine [Synthroid] 75 mcg PO DAILY 02/07/14 08/28/20 Lisinopril 40 mg PO BID 02/07/14 08/28/20 Omeprazole [PriLOSEC] 20 mg PO BID 02/07/14 08/28/20 carvediloL [Carvedilol] 25 mg PO BID 09/14/17 08/28/20 Glipizide 5 mg PO TID 12/12/18 08/28/20 Warfarin [Coumadin] 2 mg PO QPM 12/12/18 08/28/20 Lidocaine/Prilocain 2.5% Cream 30 gm TOP DAILY PRN #1 tube 11/20/19 08/28/20 [Emla 2.5% Cream] Prochlorperazine [Compazine] 10 mg PO Q6H #30 tablet 11/20/19 08/28/20 Cholecalciferol [Vitamin D3] 2,000 unit PO BID 11/28/19 08/28/20 Rosuvastatin Calcium [Crestor] 10 mg PO DAILY 09/30/20 09/30/20 - Allergies Allergies/Adverse Reactions: Allergies Allergy/AdvReac Type Severity Reaction Status Date / Time cephalexin monohydrate * Allergy Rash Verified 09/30/20 22:17 [From Keflex] Latex, Natural Rubber Allergy Unknown Verified 09/30/20 22:17 metformin [From Glucophage] Allergy Unknown Verified 09/30/20 22:17 Penicillins Allergy Itching Verified 09/30/20 22:17 Sulfa (Sulfonamide Allergy Rash Verified 09/30/20 22:17 Antibiotics) adhesive tape AdvReac Itching Verified 09/30/20 22:17 - Social History Does the pt smoke?: No Smoking Status: Never smoker Does the pt drink ETOH?: No Does the pt have substance abuse?: No - Immunizations Immunizations are current?: Yes Immunizations: TDAP >10years/unknown - POLST Patient has POLST: No PD ED PE NORMAL - Vitals Vital signs reviewed: Yes - General General: Alert and oriented X 3, No acute distress, Well developed/nourished - HEENT HEENT: Atraumatic, PERRL, EOMI, Moist mucous membranes - Neck Neck: Supple, no meningeal sign - Cardiac Cardiac: RRR - Respiratory Respiratory: No respiratory distress, Clear bilaterally - Abdomen Abdomen: Soft, Non tender, Non distended - Back Back: No CVA TTP - Derm Derm: Normal color, Warm and dry, No rash - Neuro Neuro: Alert and oriented X 3, 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, No motor deficit, No sensory deficit, Normal speech Eye Opening: Spontaneous Motor: Obeys Commands Verbal: Oriented GCS Score: 15 - Psych Psych: Normal mood, Normal affect PD ED PE EXPANDED - Cardiac Cardiac: Murmur Present (2/6 CHANDLER at cardiac base) - Extremities Extremities: Pedal edema bilateral Results - Vitals Vitals: Vital Signs - 24 hr 09/30/20 09/30/20 09/30/20 22:15 23:28 23:37 Temperature 36.3 C L Heart Rate 72 65 67 Respiratory 16 15 18 Rate Blood Pressure 114/45 L 118/45 L O2 Saturation 99 97 10/01/20 10/01/20 10/01/20 01:35 01:50 03:05 Temperature 97.3 C H 36.4 C L 36.3 C L Heart Rate 70 66 66 Respiratory 14 12 12 Rate Blood Pressure 101/37 L 114/48 L 120/53 L O2 Saturation 10/01/20 10/01/20 10/01/20 03:27 03:45 05:10 Temperature 36.4 C L 36.4 C L 36.4 C L Heart Rate 64 68 64 Respiratory 15 13 16 Rate Blood Pressure 112/89 H 94/54 L 108/52 L O2 Saturation Oxygen O2 Source Room air - Labs Labs: Microbiology 09/30/20 22:10 Occult Blood - Final Stool Laboratory Tests 09/30/20 09/30/20 09/30/20 22:25 23:09 23:09 WBC 10.9 H RBC 2.54 L Hgb 6.5 L* Hct 21.1 L MCV 83.1 MCH 25.6 L MCHC 30.8 L RDW 15.1 H Plt Count 199 MPV 10.4 Neut # (Auto) 9.4 H Lymph # (Auto) 0.6 L [place] # (Auto) 0.7 Eos # (Auto) 0.2 Baso # (Auto) 0.0 Absolute Nucleated RBC 0.00 Nucleated RBC % 0.0 PT INR APTT Sodium 137 Potassium 4.4 Chloride 106 Carbon Dioxide 22 Anion Gap 9.0 BUN 101 H* Creatinine 1.9 H Estimated GFR (MDRD) 25 L Glucose 191 H Calcium 9.2 Total Bilirubin 0.6 AST 16 ALT 13 Alkaline Phosphatase 67 Ammonia Total Protein 6.1 L Albumin 3.2 Globulin 2.9 Albumin/Globulin Ratio 1.1 Lipase 28 Urine Color YELLOW Urine Clarity CLEAR Urine pH 5.0 Ur Specific [place] 1.015 Urine Protein NEGATIVE Urine Glucose (UA) NEGATIVE Urine Ketones NEGATIVE Urine Occult Blood TRACE-INTA Urine Nitrite NEGATIVE Urine Bilirubin NEGATIVE Urine Urobilinogen 0.2 (NORMAL) Ur Leukocyte Esterase NEGATIVE Ur Microscopic Review NOT INDICATED Urine Culture Comments NOT INDICATED Nasal Adenovirus (PCR) Nasal B. parapertussis DNA (PCR) Nasal Coronavir 229E PCR Nasal Coronavir HKU1 PCR Nasal Coronavir NL63 PCR Nasal Coronavir OC43 PCR Nasal Enterovir/Rhinovir PCR Nasal Influenza B PCR Nasal Influenza A PCR Nasal Parainfluen 1 PCR Nasal Parainfluen 2 PCR Nasal Parainfluen 3 PCR Nasal Parainfluen 4 PCR Nasal RSV (PCR) Nasal B.pertussis DNA PCR Nasal C.pneumoniae (PCR) Chad Human Metapneumo PCR Nasal M.pneumoniae (PCR) Nasal SARS-CoV-2 (PCR) Blood Type Blood Type Recheck Antibody Screen Crossmatch IS Only 09/30/20 09/30/20 09/30/20 23:09 23:09 23:09 WBC RBC Hgb Hct MCV MCH MCHC RDW Plt Count MPV Neut # (Auto) Lymph # (Auto) [place] # (Auto) Eos # (Auto) Baso # (Auto) Absolute Nucleated RBC Nucleated RBC % PT 107.2 H INR > 10.0 H* APTT 56.3 H Sodium Potassium Chloride Carbon Dioxide Anion Gap BUN Creatinine Estimated GFR (MDRD) Glucose Calcium Total Bilirubin AST ALT Alkaline Phosphatase Ammonia 27.8 Total Protein Albumin Globulin Albumin/Globulin Ratio Lipase Urine Color Urine Clarity Urine pH Ur Specific [place] Urine Protein Urine Glucose (UA) Urine Ketones Urine Occult Blood Urine Nitrite Urine Bilirubin Urine Urobilinogen Ur Leukocyte Esterase Ur Microscopic Review Urine Culture Comments Nasal Adenovirus (PCR) Nasal B. parapertussis DNA (PCR) Nasal Coronavir 229E PCR Nasal Coronavir HKU1 PCR Nasal Coronavir NL63 PCR Nasal Coronavir OC43 PCR Nasal Enterovir/Rhinovir PCR Nasal Influenza B PCR Nasal Influenza A PCR Nasal Parainfluen 1 PCR Nasal Parainfluen 2 PCR Nasal Parainfluen 3 PCR Nasal Parainfluen 4 PCR Nasal RSV (PCR) Nasal B.pertussis DNA PCR Nasal C.pneumoniae (PCR) Chad Human Metapneumo PCR Nasal M.pneumoniae (PCR) Nasal SARS-CoV-2 (PCR) Blood Type A POSITIVE Blood Type Recheck Antibody Screen NEGATIVE Crossmatch IS Only See Detail 09/30/20 09/30/20 23:30 23:45 WBC RBC Hgb Hct MCV MCH MCHC RDW Plt Count MPV Neut # (Auto) Lymph # (Auto) [place] # (Auto) Eos # (Auto) Baso # (Auto) Absolute Nucleated RBC Nucleated RBC % PT INR APTT Sodium Potassium Chloride Carbon Dioxide Anion Gap BUN Creatinine Estimated GFR (MDRD) Glucose Calcium Total Bilirubin AST ALT Alkaline Phosphatase Ammonia Total Protein Albumin Globulin Albumin/Globulin Ratio Lipase Urine Color Urine Clarity Urine pH Ur Specific [place] Urine Protein Urine Glucose (UA) Urine Ketones Urine Occult Blood Urine Nitrite Urine Bilirubin Urine Urobilinogen Ur Leukocyte Esterase Ur Microscopic Review Urine Culture Comments Nasal Adenovirus (PCR) NOT DETECTED Nasal B. parapertussis DNA (PCR) NOT DETECTED Nasal Coronavir 229E PCR NOT DETECTED Nasal Coronavir HKU1 PCR NOT DETECTED Nasal Coronavir NL63 PCR NOT DETECTED Nasal Coronavir OC43 PCR NOT DETECTED Nasal Enterovir/Rhinovir PCR NOT DETECTED Nasal Influenza B PCR NOT DETECTED Nasal Influenza A PCR NOT DETECTED Nasal Parainfluen 1 PCR NOT DETECTED Nasal Parainfluen 2 PCR NOT DETECTED Nasal Parainfluen 3 PCR NOT DETECTED Nasal Parainfluen 4 PCR NOT DETECTED Nasal RSV (PCR) NOT DETECTED Nasal B.pertussis DNA PCR NOT DETECTED Nasal C.pneumoniae (PCR) NOT DETECTED Chad Human Metapneumo PCR NOT DETECTED Nasal M.pneumoniae (PCR) NOT DETECTED Nasal SARS-CoV-2 (PCR) NOT DETECTED Blood Type Blood Type Recheck A POSITIVE Antibody Screen Crossmatch IS Only - Rads (name of study) [facility] Radiology: Prelim report reviewed, See rad report PD MEDICAL DECISION MAKING - ED course Complexity details: reviewed old records, reviewed results, re-evaluated patient, considered differential, d/w patient, d/w family ED course: Patient's vital signs remained stable throughout ED stay and she remained AAOx3 with normal neurological exam initially and on multiple reevaluations. She has guaiac (+) stool and hgb 6.5 (was 9.6 on 08/20, which had been the lowest on [facility] records going back several years). BUN is 101, creatinine 1.9 (51 and 1.7, respectively, on 08/20). Her INR is >10. she is consented for PRBC transfusions and 2 units PRBC ordered and transfused during ED stay. Based on these initial results, I discussed the case with Dr. Morris ([facility] hospitalist) who agreed with admission. Unfortunately, I subsequently received CTH result which shows small SAH and thus the admission to [facility] is cancelled, as patient requires higher level of care. Patient given k centra in ED. She is also given 10 mg IV vitamin K (this is g iven between the first and second units of PRBC). I discussed the case with Dr. House, neurosurgeon tone artist apprentice at [facility]. He recommends repeat CTH 4 hours after initial CTH; if no interval change patient can be admitted to medical service, but that transfer would be appropriate for ongoing observation at a higher level of care given potential, though unlikely, for rapid worsening of the SAH. I subsequently was contacted by Dr. Melendez who is tone artist apprentice for the stroke team at [facility]. He agrees with the interventions thus far and also feels patient is appropriate for admission to medical service. The transfer center coordinator had contacted the employment law specialist, ED physician, and neurologist tone artist apprentice at [facility] and they deferred to tone artist apprentice for stroke service at Dr. Melendez. Given this conversation I had with Dr. Melendez, the employment law specialist was repaged. I subsequently heard from Dr. Yi, tone artist apprentice employment law specialist at [facility]. He accepts the transfer; there are no ICU beds available at the time of our conversation, but he agrees that transfer to [facility] ED is appropriate and he (Dr Waite) confirms that he will be the accepting physician with plan being to transfer to [facility] ED where patient can be reassessed before inpatient placement when appropriate bed is available. She is AAOx3 at time of transfer. The second unit of PRBC is completed immediately prior to transfer out of [facility] ED and the 4-hour repeat head CT shows no interval change in the SAH - Critical Care Time(min): 70 Time Includes: Direct patient care, Review records, Reassess patient, Document care, Coordinate care, Medical consult, See progress note Data interpretation: Labs, Pulse ox, See progress note Procedures included in critical care time: See progress note Procedures excluded from critical care time: See progress note Departure - Departure Disposition: 02 Transfer Acute Care Hosp Clinical Impression: Lower gastrointestinal bleeding, Supratherapeutic INR, Subarachnoid bleed Condition: Stable Discharge Date/Time: 10/01/20 05:17
[2020-09-30 22:40] LABS: CLARITY,URINE CLEAR (CLEAR)
[2020-09-30 23:17] LABS: BASOPHILS % (AUTO) 0.3 %; EOSINOPHILS # (AUTO) 0.2 10^3/uL (0.0-0.7); EOSINOPHILS % (AUTO) 1.8 %; HCT - HEMATOCRIT 21.1 % (37.0-47.0); LYMPHOCYTES # (AUTO) 0.6 10^3/uL (1.5-3.5); LYMPHOCYTES % (AUTO) 5.5 %; MEAN CORPUSCULAR HEMOGLOBIN 25.6 pg (27.0-31.0); MEAN CORPUSCULAR HGB CONC 30.8 g/dL (32.0-36.0); MEAN CORPUSCULAR VOLUME 83.1 fL (81.0-99.0); MEAN PLATELET VOLUME 10.4 fL (7.9-10.8); MONOCYTES # (AUTO) 0.7 10^3/uL (0.0-1.0); NEUTROPHILS # (AUTO) 9.4 10^3/uL (1.5-6.6); PLT - PLATELET COUNT 199 10^3/uL (130-450); RED BLOOD COUNT 2.54 10^6/uL (4.20-5.40); RED CELL DISTRIBUTION WIDTH 15.1 % (12.0-15.0); WHITE BLOOD COUNT 10.9 x10^3/uL (4.8-10.8)
[2020-09-30 23:21] LABS: HGB - HEMOGLOBIN 6.5 g/dL (12.0-16.0); PT - PROTHROMBIN TIME 107.2 secs (9.9-12.6)
[2020-09-30 23:34] LABS: PARTIAL THROMBOPLASTIN TIME 56.3 secs (24.9-33.3)
[2020-09-30 23:35] LABS: INR > 10.0 (0.8-1.2)
[2020-09-30 23:40] LABS: ALBUMIN 3.2 g/dL (3.2-5.5); ALBUMIN/GLOBULIN RATIO 1.1 (1.0-2.2); BILIRUBIN,TOTAL 0.6 mg/dL (0.2-1.0); CALCIUM 9.2 mg/dL (8.5-10.3); CREATININE 1.9 mg/dL (0.4-1.0); POTASSIUM 4.4 mmol/L (3.5-5.0); TOTAL PROTEIN 6.1 g/dL (6.7-8.2)
[2020-09-30] MEDS ORDERED: ACETAMINOPHEN 325 MG TABLET PO PRN (23:50)
[2020-09-30] MEDS ORDERED: oxyCODONE 5 MG TABLET PO PRN (23:50)
[2020-09-30] MEDS ORDERED: SODIUM CHLORIDE FLUSH 0.9% 10 ML SYRINGE IVP PRN (23:50)
--- NOTE | 2020-09-30 23:54 | HISTORY & PHYSICAL EXAMINATION ---
Chief Complaint - Chief Complaint Chief Complaint: severe fatigue for days w maroon stools today History of Present Illness - Admitted From Admitted From:: Home via ER - History Obtained From Records Reviewed: [facility] History obtained from: Dr. 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 It was found when she had a fall with T-spine vertebral compression fractures. Films were done for those fractures and there was an incidental finding of a liver mass with subsequent diagnosis. She refused chemotherapy initially but did agree to Y 90 radiation. She was most recently seen by Dr. Wilfredo Schulte on June 2020. She has a stage IIIb locally advanced intrahepatic cholangiocarcinoma with a right hepatic lobe mass, periportal lymph nodes, and they responded to radiation with some shrinkage. She is due to have another CT in November of this year and if she had any increasing size of lesions she would be a candidate for additional Y 90 treatment. Other GI history includes gastroesophageal reflux disease but no history of ulcers or diverticular bleeding. She is on Coumadin for a history of A. fib but is not on any nonsteroidal therapy. She has been having black stools off and on for a few weeks. Her daughter is not aware of this. Today she began having maroon-colored stools. She is tired and increasingly more more fatigued. She did receive an iron infusion last week. She is felt to have poorly controlled diabetes. Grade 2-3 iron deficiency anemia. She has constant pain in her right side. No weight changes. No appetite changes. Other review of systems that are positive are that of constantly tearing eyes, swelling of feet and ankles, easy constipation, bruising easily. She has mild cognitive deficits. In the emergency room temperature is 36.3. Blood pressure 110/51. Pulse 60. Respirations 16 and unlabored. She is 99% on room air. Her last BUN and creatinine were 51 and 1.7 in July. Today she is 101/1.9. Hemoglobin is 9.6- 10.4. Today it is 6.5. Platelets are 199. INR on her Coumadin is greater than 10. Urinalysis is negative for infection. Stool is fecal occult blood positive. She is now admitted for evaluation of a possible GI bleed, and transfusion. This history and physical will not be canceled. As I was getting ready to evaluate the patient in doing this dictation, CT of the head report came back as subarachnoid bleeding. The patient's admission will be canceled and we will try to transfer for neurosurgical evaluation. I spoken to both the patient and her daughter. They do want evaluation and treatment. History - Past Medical History Cardiovascular: reports: Congestive heart failure (Chronic, Grade 2 Diastolic), Hypertension, High cholesterol, Atrial fibrillation (all her life. . Echo October 2010 in May 2013 are suboptimal because of her size. Mild LVH. EF 65%. Pulmonary hypertension 54 mmHg. Moderate MR. Slight worsening of pulmonary hypertension over the years), Valve disorder (Moderate aortic stenosis. Echo July 2018 showed worsening left ear from 2014 with worsening LAE) Respiratory: reports: Pneumonia, Shortness of breath, Sleep apnea, CPAP use Neuro: reports: Dementia (uncontrolled for a while now. ), Other Endocrine/Autoimmune: reports: Type 2 diabetes GI: reports: GERD, Diverticulitis (diverticulosis on scopes in past) ART PREPARATOR: reports: Other () : reports: Incontinence, Other (CKD Stage III) HEENT: reports: Other (allergic rhinitis) Psych: reports: Anxiety Musculoskeletal: reports: Osteoarthritis, Gout Derm: reports: None MRSA Hx?: No - Past Surgical History General: reports: Appendectomy /ART PREPARATOR: reports: section, Hysterectomy, Other HEENT: reports: Cataracts (May 2012 in June 2012) - Family & Social History Family History: Mother: , COPD/Emphysema, CVA/TIA, Father: , Cancer, Sister: Family History Comment/Other: Dad in 70s of lung cancer, smoker. BKA of legs. Mom in her 50s of diabetes. 7 siblings are all . Diabetes, emphysema, heart. 2 children are healthy Living arrangement: At home Living Situation: With family ( Has been diagnosed with cancer in 2019 and finally succumbed to it in late 2019) Social History Notes: She was born in [place]. Moved to [facility] with her parents when she was 11. They ran [employer]. [place] children. 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 She never smoked, never drank. No history of recreational substance abuse - Substance History Use: Uses substance without health or social issues: NONE Abuse: Recurrent use of substance despite neg consequences: NONE Dependence: Experiences withdrawal or developed tolerances: NONE - POLST Patient has POLST: No Meds/Allgy - Home Medications Home Medications: Ambulatory Orders Medication Instructions Recorded Confirmed Furosemide 40 mg PO DAILY 02/07/14 08/28/20 Levothyroxine [Synthroid] 75 mcg PO DAILY 02/07/14 08/28/20 Lisinopril 40 mg PO BID 02/07/14 08/28/20 Omeprazole [PriLOSEC] 20 mg PO BID 02/07/14 08/28/20 carvediloL [Carvedilol] 25 mg PO BID 09/14/17 08/28/20 Glipizide 5 mg PO TID 12/12/18 08/28/20 Warfarin [Coumadin] 2 mg PO QPM 12/12/18 08/28/20 Lidocaine/Prilocain 2.5% Cream 30 gm TOP DAILY PRN #1 tube 11/20/19 08/28/20 [Emla 2.5% Cream] Prochlorperazine [Compazine] 10 mg PO Q6H #30 tablet 11/20/19 08/28/20 Cholecalciferol [Vitamin D3] 2,000 unit PO BID 11/28/19 08/28/20 Rosuvastatin Calcium [Crestor] 10 mg PO DAILY 09/30/20 09/30/20 - Allergies Allergies/Adverse Reactions: Allergies Allergy/AdvReac Type Severity Reaction Status Date / Time cephalexin monohydrate * Allergy Rash Verified 09/30/20 22:17 [From Keflex] Latex, Natural Rubber Allergy Unknown Verified 09/30/20 22:17 metformin [From Glucophage] Allergy Unknown Verified 09/30/20 22:17 Penicillins Allergy Itching Verified 09/30/20 22:17 Sulfa (Sulfonamide Allergy Rash Verified 09/30/20 22:17 Antibiotics) adhesive tape AdvReac Itching Verified 09/30/20 22:17 Exam - Vital Signs Vital Signs: Vital Signs x48h Temp Pulse Resp BP Pulse Ox 09/30/20 23:37 67 18 97 09/30/20 23:28 65 15 118/45 L 09/30/20 22:15 36.3 C L 72 16 114/45 L 99 Conclusion/Plan - Lab Results Lab results reviewed: Yes Fish Bones: 09/30/20 23:09 09/30/20 23:09
[2020-10-01 00:28] LABS: B. PARAPERTUSSIS- RESP PCR PAN NOT DETECTED; B. PERTUSSIS- RESP PCR PANEL NOT DETECTED; C. PNEUMONIAE- RESP PCR PANEL NOT DETECTED; CORONAVIRUS 229E-RESP PCR NOT DETECTED; CORONAVIRUS HKU1-RESP PCR NOT DETECTED; CORONAVIRUS NL63-RESP PCR NOT DETECTED; CORONAVIRUS OC43-RESP PCR NOT DETECTED; HUMAN METAPNEUMOVIRUS NOT DETECTED; INFLUENZA A- RESP PCR PANEL NOT DETECTED; INFLUENZA B - RESP PCR PANEL NOT DETECTED; M. PNEUMONIAE- RESP PCR PANEL NOT DETECTED; PARAINFLUENZA VIRUS 1 NOT DETECTED; PARAINFLUENZA VIRUS 2 NOT DETECTED; PARAINFLUENZA VIRUS 3 NOT DETECTED; PARAINFLUENZA VIRUS 4 NOT DETECTED; RHINOVIRUS/ENTEROVIRUS NOT DETECTED; RSV- RESP PCR PANEL NOT DETECTED; SARS-CoV-2 -RESP PCR PANEL NOT DETECTED
[2020-10-01] MEDS: PROTHROMBIN COMPLEX CONC 500 UNIT VIAL IVP STA ×2 (00:48→01:25)
[2020-10-01] MEDS ORDERED: SODIUM CHLORIDE FLUSH 0.9% 10 ML SYRINGE IVP SCH (01:00)
[2020-10-01] MEDS ORDERED: PHYTONADIONE 10 MG/ML AMP IVP STA (01:25)
[2020-10-01 05:17] VITALS: BP 108/52
--- NOTE | 2020-10-01 09:33 | CT Report ---
PROCEDURE: HEAD WO INDICATIONS: AMS TECHNIQUE: Noncontrast 4.5 mm thick angled axial sections acquired from the foramen magnum to the vertex. For r adiation dose reduction, the following was used: automated exposure control, adjustment of mA and/or kV according to patient size. COMPARISON: CT head without contrast, 07/02/2019.. FINDINGS: Image quality: Excellent. CSF spaces: Basal cisterns are patent. No extra-axial fluid collections. Ventricles are normal in size and shape. Brain: There is a hyperdensity in the left frontal lobe medially adjacent to the falx measuring 0.9 x 1.7 cm, new since the last exam. No mass effect or midline shift. There is moderate cerebral volum e loss. Mild periventricular white matter chronic small vessel ischemic changes are present. Skull and face: Calvarium and visualized facial bones are intact, without suspicious lesions. Sinuses: Visualized sinuses and mastoids are clear. IMPRESSION: 1. A 0.9 x 1.7 cm hypodensity in the left frontal lobe medially is new since the last CT dated 020. It is suspicious for a small subarachnoid or intraparenchymal hemorrhage. No mass effect or midl ine shift 2. Cerebral volume loss and periventricular white matter chronic small vessel ischemic changes. There is no significant discrepancy with the preliminary interpretation. Reviewed by: Eddie Hills MD on 10/01/2020 9:32 AM PDT Approved by: Eddie Hills MD on 10/01/2020 9:32 AM PDT Station ID: [id number]
--- NOTE | 2020-10-01 09:39 | CT Report ---
PROCEDURE: HEAD WO INDICATIONS: repeat CT after ICH on previous TECHNIQUE: Noncontrast 4.5 mm thick angled axial sections acquired from the foramen magnum to the vertex. For r adiation dose reduction, the following was used: automated exposure control, adjustment of mA and/or kV according to patient size. COMPARISON: . CT head without contrast, 10/01/2020 at 12:07 AM. FINDINGS: Image quality: Excellent. CSF spaces: Basal cisterns are patent. No extra-axial fluid collections. Ventricles are normal in size and shape. Brain: Again noted is a hyperdensity in the frontal lobe medially adjacent to the falx, compatible w ith an intraparenchymal or subarachnoid hemorrhage. Comparison. With the last exam on 10/01/2020 at 12 07 and, there is no significant change. No intervening mass effect or midline shift. No intracranial masses or hemorrhage. There is moderate cerebral volume loss. Mild periventricular white matter practical nurse clinical coordinator gosia small vessel ischemic changes are present Skull and face: Calvarium and visualized facial bones are intact, without suspicious lesions. Sinuses: Visualized sinuses and mastoids are clear. IMPRESSION: 1. Stable left frontal hyperdensity compatible with a small intraparenchymal or subarachnoid hemorrha ge. 2. Cerebral volume loss and periventricular white matter chronic small vessel ischemic changes. No significant discrepancy with the preliminary interpretation. Reviewed by: Eddie Hills MD on 10/01/2020 9:37 AM PDT Approved by: Eddie Hills MD on 10/01/2020 9:37 AM PDT Station ID: [id number]
== END 2020-10-01 05:17 | disposition short-term general hospital (02) ==
LOC: ED 21:58 → UNDOADMIN 23:50 → MS2 23:50 → ED 10-01 05:17
DX: I60.9 Nontraumatic subarachnoid hemorrhage, unspecified (principal); K92.2 Gastrointestinal hemorrhage, unspecified; D62 Acute posthemorrhagic anemia; R79.1 Abnormal coagulation profile; I48.91 Unspecified atrial fibrillation; Z79.01 Long term (current) use of anticoagulants; I10 Essential (primary) hypertension; E11.9 Type 2 diabetes mellitus without complications; Z79.84 Long term (current) use of oral hypoglycemic drugs; Z20.822 Contact with and (suspected) exposure to COVID-19
CPT/HCPCS: 36415; 36430; 70450; 80053; 81003; 82140; 82272; 83690; 85025; 85610; 85730; 86850; 86900; 86901; 86920; 87631; 96374; 96375; 99285; 99291; C9132; P9016; 0202U; 80048; 81001; 87086

== ENCOUNTER 2020-10-01 05:16 | Outpatient (CLI) | payer MEDICARE, OTHER | END 2020-10-01 05:17 | disposition short-term general hospital (02) | LOC: EMS 05:16 | PROVIDERS: ATTEND Emergency Medicine | DX: K92.2 Gastrointestinal hemorrhage, unspecified (principal); D64.9 Anemia, unspecified; R79.1 Abnormal coagulation profile; I60.9 Nontraumatic subarachnoid hemorrhage, unspecified | CPT/HCPCS: A0425; A0428 ==

== ENCOUNTER 2020-10-09 14:05 | Outpatient (CLI) | payer MEDICARE, OTHER ==
[2020-10-09 14:35] LABS: BASOPHILS % (AUTO) 0.6 %; EOSINOPHILS # (AUTO) 0.4 10^3/uL (0.0-0.7); EOSINOPHILS % (AUTO) 6.1 %; HCT - HEMATOCRIT 29.8 % (37.0-47.0); HGB - HEMOGLOBIN 9.3 g/dL (12.0-16.0); LYMPHOCYTES # (AUTO) 0.7 10^3/uL (1.5-3.5); LYMPHOCYTES % (AUTO) 9.8 %; MEAN CORPUSCULAR HEMOGLOBIN 28.4 pg (27.0-31.0); MEAN CORPUSCULAR HGB CONC 31.2 g/dL (32.0-36.0); MEAN CORPUSCULAR VOLUME 91.1 fL (81.0-99.0); MEAN PLATELET VOLUME 10.9 fL (7.9-10.8); MONOCYTES # (AUTO) 0.7 10^3/uL (0.0-1.0); MONOCYTES % (AUTO) 9.2 %; NEUTROPHILS # (AUTO) 5.4 10^3/uL (1.5-6.6); PLT - PLATELET COUNT 161 10^3/uL (130-450); RED BLOOD COUNT 3.27 10^6/uL (4.20-5.40); RED CELL DISTRIBUTION WIDTH 19.4 % (12.0-15.0); WHITE BLOOD COUNT 7.3 x10^3/uL (4.8-10.8)
[2020-10-09 14:52] LABS: CALCIUM 9.5 mg/dL (8.5-10.3); CREATININE 1.1 mg/dL (0.4-1.0); POTASSIUM 4.6 mmol/L (3.5-5.0)
== END 2020-10-09 14:06 | disposition home or self-care (01) ==
LOC: LAB 14:05
PROVIDERS: ATTEND Physician Assistant Medical
DX: N28.9 Disorder of kidney and ureter, unspecified (principal); D50.9 Iron deficiency anemia, unspecified
CPT/HCPCS: 36415; 80048; 82728; 83540; 84466; 85025

== ENCOUNTER 2020-10-10 10:18 | Outpatient (CLI) | payer MEDICARE, OTHER | END 2020-10-10 23:59 | disposition home or self-care (01) | LOC: LAB.N 10:18 | PROVIDERS: ATTEND Family Medicine | DX: R30.0 Dysuria (principal) | CPT/HCPCS: 87086; 87181 ==

== ENCOUNTER 2020-10-23 08:43 | Outpatient (CLI) | payer MEDICARE, OTHER ==
[2020-10-23] MEDS ORDERED: GADOBUTROL 10 MMOL/10 ML VIAL ONE (08:52)
--- NOTE | 2020-10-23 10:16 | MRI Report ---
PROCEDURE: Brain W/WO INDICATIONS: SPONTANEOUS SUBARACHNOID HEMORRHAGE CONTRAST: IV CONTRAST: Gadavist ml: 8.4 TECHNIQUE: Noncontrast axial T1 spin echo, axial T2 fast spin echo, sagittal and axial FLAIR, coronal T2 fast sp in echo, axial gradient echo, axial diffusion and ADC through the brain. After the administration of contrast, axial and coronal T1 spin echo with fat saturation through the brain. COMPARISON: Head CT dated 10/01/2020 FINDINGS: Image quality: Excellent. CSF spaces: Basal cisterns are patent. No extra-axial fluid collections. Ventricles are normal in size and shape. Brain: No midline shift. No acute intracranial bleeds or masses. There is a small amount of low gr adient echo signal intensity material within the posterior medial aspect of the left frontal lobe. Sm all amount of low gradient echo intensity material at the anterior aspect of the bilateral frontal lo bes, compatible with chronic hemorrhagic material. No acute intracranial hemorrhage. No abnormal intr acranial enhancement. There is cerebral volume loss for age. There is periventricular white matter chronic small vessel ischemic change. The brainstem appears normal. Diffusion-weighted images demon strate no acute ischemic insults. No chronic ischemic insults. Normal intravascular flow voids are present. Skull and face: Calvarial marrow is normal in signal. Orbits appear normal. Sinuses: There is mild mucosal thickening within the bilateral ethmoid air cells. Sinuses and mastoi ds otherwise appear clear. IMPRESSION: 1. Chronic hemorrhagic products within the left frontal lobe, as well as at the anterior aspects of t he bilateral frontal lobes. No acute intracranial hemorrhage. 2. Volume loss and small vessel ischemic disease. 3. No recent infarct. 4. No evidence of intracranial mass lesion. 5. Mild sinus disease. Reviewed by: Maya Segura MD on 10/23/2020 10:15 AM PDT Approved by: Maya Segura MD on 10/23/2020 10:15 AM PDT Station ID: [id number]
[2020-10-23] MEDS ORDERED: GADOBUTROL 10 MMOL/10 ML VIAL IVP ONE (16:34)
== END 2020-10-23 08:44 | disposition home or self-care (01) ==
LOC: DI 08:43
DX: I67.82 Cerebral ischemia (principal); J32.9 Chronic sinusitis, unspecified
CPT/HCPCS: 70553; A9585

== ENCOUNTER 2020-10-29 10:53 | Outpatient (CLI) | payer MEDICARE, OTHER ==
--- NOTE | 2020-10-29 11:44 | XRAY Report ---
PROCEDURE: Knee 3 View RT INDICATIONS: KNEE JOINT PAIN, RIGHT TECHNIQUE: 3 views of the right knee(s) were acquired. COMPARISON: None. FINDINGS: Bones: No fractures or dislocations. Mild tricompartmental osteoarthritis is seen more prominent in medial femoral tibial compartment. No patella subluxation. No suspicious bony lesions. Soft tissues: No joint effusion. No suspicious soft tissue calcifications. IMPRESSION: Mild tricompartmental osteoarthritis in right knee. No fracture or dislocation. No joint effusion. Reviewed by: Washington Carmen MD on 10/29/2020 11:43 AM PDT Approved by: Washington Carmen MD on 10/29/2020 11:43 AM PDT Station ID: [id number]
== END 2020-10-29 23:59 | disposition home or self-care (01) ==
LOC: DI.N 10:53
PROVIDERS: ATTEND Family Medicine
DX: M17.11 Unilateral primary osteoarthritis, right knee (principal)

== ENCOUNTER 2020-11-27 19:00 | Outpatient (CLI) | payer MEDICARE, OTHER ==
[2020-11-28 13:36] LABS: FECAL OCCULT BLOOD (FIT) POSITIVE (NEGATIVE)
== END 2020-11-27 23:59 | disposition home or self-care (01) ==
LOC: LAB.R 19:00
PROVIDERS: ATTEND Physician Assistant Medical
DX: K92.2 Gastrointestinal hemorrhage, unspecified (principal)
CPT/HCPCS: 82274

== ENCOUNTER 2021-03-13 08:00 | Outpatient (CLI) | payer MEDICARE, OTHER ==
[2021-03-13 18:40] LABS: BILIRUBIN,URINE NEGATIVE (NEGATIVE); GLUCOSE, URINE (UA) 250 mg/dL (NEGATIVE); KETONES,URINE (UA) NEGATIVE (NEGATIVE); LEUKOCYTE ESTERASE, URINE MODERATE (NEGATIVE); NITRITE,URINE NEGATIVE (NEGATIVE); OCCULT BLOOD,URINE MODERATE (NEGATIVE); PH,URINE 5.5 PH (5.0-7.5); PROTEIN,URINE NEGATIVE (NEGATIVE); UROBILINOGEN,URINE 0.2 (NORMAL) E.U./dL (NORMAL)
[2021-03-13 19:03] LABS: BACTERIA,URINE Many /HPF (None Seen); CASTS, URINE 3-5 Hyaline Casts /LPF; CLARITY,URINE CLEAR (CLEAR); RBC,URINE 0-5 /HPF (0-5); SQUAMOUS EPITHELIAL CELL,UR RARE Squamous (<= Few); WBC CLUMPS,URINE PRESENT; WBC,URINE >25 /HPF (0-5)
== END 2021-03-13 08:01 | disposition home or self-care (01) ==
LOC: LAB 08:00
PROVIDERS: ATTEND Physician Assistant Medical
DX: R30.0 Dysuria (principal)
CPT/HCPCS: 81001; 87077; 87086; 87181

== ENCOUNTER 2021-06-09 13:00 | Outpatient (CLI) | payer MEDICARE, OTHER | END 2021-06-09 13:01 | disposition home or self-care (01) | LOC: LAB 13:00 | PROVIDERS: ATTEND Physician Assistant Medical | DX: Z53.9 Procedure and treatment not carried out, unspecified reason (principal) ==

== ENCOUNTER 2021-06-23 08:00 | Outpatient (CLI) | payer MEDICARE, OTHER | END 2021-06-23 23:59 | LOC: LAB 08:00 | PROVIDERS: ATTEND Physician Assistant | DX: R30.0 Dysuria (principal) | CPT/HCPCS: 87086; 87181 ==

== ENCOUNTER 2021-09-10 10:58 | Outpatient (CLI) | payer MEDICARE, OTHER ==
[2021-09-10 11:30] LABS: CALCIUM 10.6 mg/dL (8.5-10.3); CREATININE 1.1 mg/dL (0.4-1.0); POTASSIUM 4.3 mmol/L (3.5-5.0)
== END 2021-09-10 10:59 | disposition home or self-care (01) ==
LOC: LAB 10:58
PROVIDERS: ATTEND Physician Assistant Medical
DX: E11.8 Type 2 diabetes mellitus with unspecified complications (principal)
CPT/HCPCS: 36415; 80048; 81599; 83036

== ENCOUNTER 2021-12-15 10:21 | Outpatient (CLI) | payer MEDICARE, OTHER ==
[2021-12-15 10:37] LABS: CREATININE 1.2 mg/dL (0.4-1.0); POTASSIUM 3.9 mmol/L (3.5-5.0)
[2021-12-15 10:59] LABS: THYROID STIMULATING HORMONE 1.91 uIU/mL (0.34-5.60)
[2021-12-15 12:24] LABS: ESTIMATED AVERAGE GLUCOSE 209 mg/dL (70-100); HEMOGLOBIN A1c% 8.9 % (4.27-6.07)
== END 2021-12-15 10:22 | disposition home or self-care (01) ==
LOC: LAB 10:21
PROVIDERS: ATTEND Physician Assistant Medical
DX: E11.8 Type 2 diabetes mellitus with unspecified complications (principal); E03.9 Hypothyroidism, unspecified
CPT/HCPCS: 36415; 80048; 83036; 84443

== ENCOUNTER 2022-02-01 13:08 | Outpatient (CLI) | payer MEDICARE, OTHER | END 2022-02-01 13:09 | disposition home or self-care (01) | LOC: NS 13:08 | PROVIDERS: ATTEND Family Medicine | DX: E11.8 Type 2 diabetes mellitus with unspecified complications (principal); I10 Essential (primary) hypertension; Z71.3 Dietary counseling and surveillance; Z71.89 Other specified counseling; Z79.4 Long term (current) use of insulin | CPT/HCPCS: 97802 ==

== ENCOUNTER 2022-02-15 12:38 | Outpatient (CLI) | payer MEDICARE, OTHER | END 2022-02-15 12:39 | disposition home or self-care (01) | LOC: NS 12:38 | PROVIDERS: ATTEND Family Medicine | DX: I10 Essential (primary) hypertension (principal); E11.8 Type 2 diabetes mellitus with unspecified complications | CPT/HCPCS: 97803 ==

== ENCOUNTER 2023-10-24 06:30 | Emergency (ER) | payer MEDICARE, OTHER ==
--- NOTE | 2023-10-24 07:52 | ED Physician Documentation ---
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 History is mostly obtained from daughter at bedside as patient has mild dementia. Daughter states that the last time she saw the patient was on Tuesday and she had some swelling in her lower extremities, but it was close to her usual amount. When the daughter checked on her today she noticed her legs were much more swollen than usual and decided to bring her in for evaluation. Patient takes 40 mg of furosemide daily. Patient states she did not notice anything abnormal, and has not checked her legs at home. Review of Systems Constitutional: denies: Fever, Chills Cardiac: denies: Chest pain / pressure, Palpitations, Calf pain Respiratory: denies: Dyspnea, Cough, Wheezing GI: denies: Abdominal Pain, Nausea, Vomiting Musculoskeletal: reports: Extremity swelling. denies: Neck pain, Back pain, Extremity pain, Joint pain PD PAST MEDICAL HISTORY - Past Medical History Past Medical History: Yes Cardiovascular: Hypertension, High cholesterol, Atrial fibrillation Respiratory: Pneumonia, Shortness of breath Neuro: Other Endocrine/Autoimmune: Type 2 diabetes GI: None STITCH CLEANER: None : Incontinence HEENT: None Psych: Anxiety Musculoskeletal: Osteoarthritis Derm: None - Past Surgical History Past Surgical History: Yes General: Appendectomy /STITCH CLEANER: section, Hysterectomy, Other HEENT: Cataracts - Present Medications Home Medications: Ambulatory Orders Medication Instructions Recorded Confirmed Levothyroxine [Synthroid] 75 mcg PO DAILY 02/07/14 10/24/23 Lisinopril 20 mg PO BID 02/07/14 10/24/23 Omeprazole [PriLOSEC] 20 mg PO BID 02/07/14 10/24/23 carvediloL [Carvedilol] 12.5 mg PO BID 09/14/17 10/24/23 glipiZIDE [Glipizide] 5 mg PO DAILY 12/12/18 10/24/23 Cholecalciferol [Vitamin D3] 5,000 unit PO DAILY 11/28/19 10/24/23 Rosuvastatin Calcium [Crestor] 10 mg PO DAILY 09/30/20 10/24/23 Furosemide [Lasix] 40 mg PO DAILY #30 tablet 12/02/21 10/24/23 Iron Fumarate/Vit C/Vit B12/FA 1 tab ORAL DAILY 03/17/22 10/24/23 [Hematogen Forte Softgel] SITagliptin [Januvia] 100 mg PO DAILY 03/17/22 10/24/23 Multivitamin/Iron/Folic Acid 1 tab PO BID 10/24/23 10/24/23 [Centrum Adults Tablet] - Allergies Allergies/Adverse Reactions: Allergies Allergy/AdvReac Type Severity Reaction Status Date / Time cephalexin monohydrate * Allergy Rash Verified 10/24/23 06:46 [From Keflex] Latex, Natural Rubber Allergy Unknown Verified 10/24/23 06:46 metformin [From Glucophage] Allergy Unknown Verified 10/24/23 06:46 Penicillins Allergy Itching Verified 10/24/23 06:46 Sulfa (Sulfonamide Allergy Rash Verified 10/24/23 06:46 Antibiotics) adhesive tape AdvReac Itching Verified 10/24/23 06:46 phenazopyridine AdvReac Rash Verified 10/24/23 09:43 [From Pyridium] - Social History Does the pt smoke?: No Smoking Status: Never smoker Does the pt drink ETOH?: No Does the pt have substance abuse?: No - Immunizations Immunizations are current?: Yes Immunizations: TDAP >10years/unknown - POLST Patient has POLST: No PD ED PE NORMAL - Vitals Vital signs reviewed: Yes - General General: No acute distress, Well developed/nourished, Other (AO x2) - Neck Neck: Supple, no meningeal sign - Cardiac Cardiac: RRR, Strong equal pulses - Respiratory Respiratory: No respiratory distress, Clear bilaterally - Abdomen Abdomen: Soft, Non tender, Non distended - Derm Derm: Normal color, Warm and dry, No rash - Extremities Extremities: No deformity, No tenderness to palpate, Normal ROM s pain, Other (3+ nonpitting edema to thighs bilaterally) - Neuro Neuro: shiftman 2-12 intact, No motor deficit, No sensory deficit, Normal speech - Psych Psych: Normal mood, Normal affect Results - Vitals Vitals: Vital Signs - 24 hr 10/24/23 10/24/23 10/24/23 06:42 09:34 11:11 Temperature 36.6 C Heart Rate 78 40 L 73 Respiratory 18 15 16 Rate Blood Pressure 156/85 H 190/98 H 196/109 H O2 Saturation 98 98 96 10/24/23 10/24/23 10/24/23 11:35 12:05 12:10 Temperature Heart Rate 97 72 78 Respiratory 18 18 18 Rate Blood Pressure 196/104 H 170/75 H 167/77 H O2 Saturation 98 98 98 10/24/23 10/24/23 10/24/23 12:15 12:49 13:04 Temperature Heart Rate 67 72 67 Respiratory 18 18 Rate Blood Pressure 132/77 H 120/62 138/67 H O2 Saturation 96 97 10/24/23 13:19 Temperature Heart Rate 72 Respiratory Rate Blood Pressure 130/66 O2 Saturation Oxygen O2 Source Room air - Labs Labs: Laboratory Tests 10/24/23 10/24/23 10/24/23 08:40 08:40 08:40 WBC 7.6 RBC 4.05 L Hgb 12.2 Hct 36.3 L MCV 89.6 MCH 30.1 MCHC 33.6 RDW 13.0 Plt Count 142 MPV 11.1 H Neut # (Auto) 6.1 Lymph # (Auto) 0.6 L [place] # (Auto) 0.6 Eos # (Auto) 0.3 Baso # (Auto) 0.0 Absolute Nucleated RBC 0.00 Nucleated RBC % 0.0 Sodium 141 Potassium 3.6 Chloride 104 Carbon Dioxide 30 Anion Gap 7.0 BUN 24 H Creatinine 0.9 Estimated GFR (MDRD) 59 L Glucose 167 H Calcium 10.2 Total Bilirubin 0.9 AST 21 ALT 14 Alkaline Phosphatase 103 B-Natriuretic Peptide 421 H Total Protein 6.4 Albumin 3.6 Globulin 2.8 Albumin/Globulin Ratio 1.3 PD Medical Decision Making - ED course Complexity details: reviewed old records, reviewed results, re-evaluated patient, considered differential, d/w patient, d/w family ED course: Nontoxic patient with asymptomatic lower extremity swelling. Lungs are clear to auscultation bilaterally, she is in no acute distress. Laboratory work and imaging to be obtained. Laboratory work is reviewed, no significant abnormalities identified. Chest x- ray shows no evidence of volume overload. Patient was given a dose of hydralazine in the emergency department for hypertension, she has not taken any of her morning medications today and this is likely the source of her hypertension. Ultrasound negative for DVT bilaterally. Patient was given an IV dose of Lasix and counseled that she may increase her Lasix to 60 mg daily for the next week to see if this helps her edema. Also counseled to elevate legs above heart level when at rest to decrease swelling. PCP follow-up advised. Departure - Departure Disposition: 01 Home, Self Care Clinical Impression: Lower extremity edema Condition: Stable Instructions: ED Edema Legs Bilateral Comments: Your laboratory work today did not show any obvious abnormalities. Your chest x-ray did not show any fluid buildup, and your lower extremities did not have a blood clot. You seem to be retaining excess fluid in your lower legs, but I am not sure the exact reason why. I recommend increasing your Lasix dose to 60 mg for a week to see if this helps your swelling. Elevate your legs whenever you are at rest. Follow-up with your scientist and primary care doctor. Forms: PCP List Discharge Date/Time: 10/24/23 14:22
--- NOTE | 2023-10-24 08:23 | XRAY Report ---
PROCEDURE: Chest 1V INDICATIONS: BLE EDEMA TECHNIQUE: One view of the chest was acquired. COMPARISON: 12/01/2021 FINDINGS: Surgical changes and devices: Right chest Port-A-Cath Lungs and pleura: No pleural effusions or pneumothorax. Lungs are clear. Mediastinum: Mediastinal contours appear normal. Heart size is normal. Bones and chest wall: No suspicious bony lesions. Overlying soft tissues appear unremarkable. IMPRESSION: No acute cardiopulmonary process. Reviewed by: Madhu Hendricks MD on 10/24/2023 8:21 AM PDT Approved by: Madhu Hendricks MD on 10/24/2023 8:21 AM PDT Station ID: [id number]
[2023-10-24 08:50] LABS: BASOPHILS % (AUTO) 0.5 %; EOSINOPHILS # (AUTO) 0.3 10^3/uL (0.0-0.7); EOSINOPHILS % (AUTO) 3.5 %; HCT - HEMATOCRIT 36.3 % (37.0-47.0); HGB - HEMOGLOBIN 12.2 g/dL (12.0-16.0); LYMPHOCYTES # (AUTO) 0.6 10^3/uL (1.5-3.5); LYMPHOCYTES % (AUTO) 7.9 %; MEAN CORPUSCULAR HEMOGLOBIN 30.1 pg (27.0-31.0); MEAN CORPUSCULAR HGB CONC 33.6 g/dL (32.0-36.0); MEAN CORPUSCULAR VOLUME 89.6 fL (81.0-99.0); MEAN PLATELET VOLUME 11.1 fL (7.9-10.8); MONOCYTES # (AUTO) 0.6 10^3/uL (0.0-1.0); MONOCYTES % (AUTO) 8.1 %; NEUTROPHILS # (AUTO) 6.1 10^3/uL (1.5-6.6); NEUTROPHILS % (AUTO) 79.7 %; PLT - PLATELET COUNT 142 10^3/uL (130-450); RED BLOOD COUNT 4.05 10^6/uL (4.20-5.40); WHITE BLOOD COUNT 7.6 x10^3/uL (4.8-10.8)
[2023-10-24 09:01] LABS: ALBUMIN 3.6 g/dL (3.2-5.5); ALBUMIN/GLOBULIN RATIO 1.3 (1.0-2.2); BILIRUBIN,TOTAL 0.9 mg/dL (0.2-1.0); CALCIUM 10.2 mg/dL (8.5-10.3); CREATININE 0.9 mg/dL (0.6-1.3); POTASSIUM 3.6 mmol/L (3.5-4.5); TOTAL PROTEIN 6.4 g/dL (6.4-8.9)
--- NOTE | 2023-10-24 11:20 | Ultrasound Report ---
PROCEDURE: Duplex Ext Veins Bilateral INDICATIONS: Soha Peters MD TECHNIQUE: Real-time imaging, as well as color and pulse Doppler interrogation, were performed of the deep veins of both legs from the inguinal ligament to the popliteal fossa. Attempted visualization of the calf veins was performed. COMPARISON: None FINDINGS: The deep veins are normally compressible, and free of intraluminal thrombus. Color and pu lse Doppler demonstrate normal phasic intravascular flow. There is normal augmentation response to d istal compression maneuver. 4.5 cm right Centeno's cyst. It communicates with the joint space. IMPRESSION: No deep venous thrombosis of the visualized lower extremities. 4.5 cm Centeno cyst on the right. Reviewed by: Celi Gordon MD on 10/24/2023 11:19 AM PDT Approved by: Celi Gordon MD on 10/24/2023 11:19 AM PDT Station ID: [id number]
[2023-10-24] MEDS: hydrALAZINE INJ 20 MG/ML VIAL IVP STA (11:57)
[2023-10-24] MEDS: FUROSEMIDE 40 MG/4 ML VIAL IVP STA (11:57)
[2023-10-24 12:59] VITALS: O2SAT 97
[2023-10-24 13:58] VITALS: BP 130/66
[2023-10-24] MEDS ORDERED: HEPARIN 5,000 UNIT/ML VIAL IVP STA (14:13)
== END 2023-10-24 14:22 | disposition home or self-care (01) ==
LOC: ED 06:30
DX: R60.0 Localized edema (principal); Z85.89 Personal history of malignant neoplasm of other organs and systems; F03.90 Unspecified dementia, unspecified severity, without behavioral disturbance, psychotic disturbance, mood disturbance, and anxiety; I10 Essential (primary) hypertension; E78.00 Pure hypercholesterolemia, unspecified; I48.91 Unspecified atrial fibrillation; E11.9 Type 2 diabetes mellitus without complications; Z79.84 Long term (current) use of oral hypoglycemic drugs; Z79.899 Other long term (current) drug therapy
CPT/HCPCS: 36415; 80053; 83880; 85025; 93970; 96374; 99284